=== PATIENT | female | born 1935 | race Caucasian/White ===

== ENCOUNTER → 2016-09-13 | Outpatient (CLI) | payer MEDICARE, BC ==
--- NOTE | 2016-09-13 20:31 | BD ---
EXAMINATION TYPE: MG DEXA axial skeleton. DATE OF EXAM: 09/13/2016 9:48 AM COMPARISON: NONE CLINICAL HISTORY: 81-year-old female known osteoporosis Height: 63 Weight: 137.0 FRAX RISK QUESTIONS: Alcohol (3 or more units per day): no Family History (Parent hip fracture): no Glucocorticoids (More than 3mos): steroid- stopped 3 days -taking for chest congestion (Ex: prednisone, prednisolone, methylprednisolone, dexamethasone, and hydrocortisone). History of Fracture in Adulthood: yes Secondary Osteoporosis: 1. Type 1 Diabetes: no 2. Hyperthyroidism: no 3. Menopause before 45: no 4. Malnutrition: no 5. Chronic liver disease: no Rheumatoid Arthritis: no Current Tobacco Use: no RISK FACTORS HISTORY OF: Hip Fracture (Right/Left): Spine Fracture: History of Wrist Fracture: bilateral wrist When: unsure Surgery to Spine/Hip(right/left)/Wrist (right/left): no Family History of Osteoporosis: no Active: yes Diet low in dairy products/other sources of calcium: no Postmenopausal woman: age 45 Lost more than 2 inches in height since high school: yes Frequent falls: no Poor Health: no Adrenal Insufficiency: no MEDICATIONS: Cymbalta, Singulair, Symbicort, simvastatin calcium , pro-air Prednisone or other steroids: takes for asthma when needed How Long: long time EXAM MEASUREMENTS: Bone mineral densitometry was performed using the [employer] System. Bone mineral density as measured about the Lumbar spine is: ----- L1-L4(G/cm2): 1.158 T Score Values are as follows: ----- L2: 0.0 ----- L3: 0.8 ----- L4: 1.0 ----- L1-L4: -0.2 Bone mineral density has: increased 17.3 % since study of: 12.17.2012 Bone mineral density about the R hip (g/cm2): 0.878 Bone mineral density about the L hip (g/cm2): 0.841 T Score values are as follows: -----R Neck: -1.2 -----L Neck: -1.4 -----R Intertrochanter: -0.2 -----L Intertrochanter: -0.2 Bone mineral density has: decreased -0.9 % since study of: 12.17.2012 IMPRESSION: Osteopenia (T Score between -2.5 and -1) as noted by T score values in the hips. There is slightly increased risk of fracture and the patient may be considered for treatment. Re-Screen 2-5 years. NOTE: T-SCORE=SD OF THE YOUNG ADULT MEAN.
== END | disposition home or self-care (01) ==
LOC: RADBDWWP 09:47
PROVIDERS: ATTEND Internal Medicine Rheumatology
DX: M85.88 Other specified disorders of bone density and structure, other site (principal)
CPT/HCPCS: 77080

== ENCOUNTER 2016-09-22 15:22 | Emergency (ER) | payer MEDICARE, BC ==
[2016-09-22 15:32] VITALS: RESP 16
--- NOTE | 2016-09-22 15:44 | ED ---
General Adult HPI - General Source: patient, EMS, RN notes reviewed Mode of arrival: EMS Limitations: no limitations <Marcos Head - Last Filed: 09/22/16 18:19> <Roberto Whittington - Last Filed: 09/22/16 21:13> - General Chief complaint: Fall Stated complaint: Fall Time Seen by Provider: 09/22/16 15:27 - History of Present Illness Initial comments: Patient 81 year old female who presents emergency room today by EMS, the chief complaint of fall occurred just prior to arrival. She does admit that she was out and went to step down from a curb was a higher step misjudged and fell down landing on her face. Also admits to some pain to the left wrist. Patient does admit to abrasion above the nose. Admits that she also had a bloody nose. Patient did have nasal clamp placed by EMS. She believes the bleeding has stopped at this time. She does admit some mild neck pain but states some of this is chronic. She denies any other complaints or symptoms at this time. Patient denies any recent fever, chills, shortness of breath, chest pain, back pain, abdominal pain, nausea or vomiting, numbness or tingling, dysuria or hematuria, constipation or diarrhea, headaches or visual changes, or any other complaints. (Marcos Head) - Related Data Home Medications Medication Instructions Recorded Confirmed Aspirin 81 mg PO DAILY 01/25/15 09/22/16 Budesonide-Formot 160-4.5 Mcg 2 puff INHALATION RT-BID 01/25/15 09/22/16 [Symbicort 160-4.5 Mcg Inhaler] Calcium Carbonate/Vitamin D3 1 tab PO TID 01/25/15 09/22/16 [Calcium 600 + Vit D Tablet] EPINEPHrine [Epipen 2-Igor] 0.3 mg IM ONCE PRN 01/25/15 09/22/16 Montelukast [Singulair] 10 mg PO HS 01/25/15 09/22/16 Multivit-Min/FA/Lycopene/Lut 1 tab PO BID 01/25/15 09/22/16 [Centrum Silver Tablet] Omeprazole [PriLOSEC] 10 mg PO AC-BRKFST 01/25/15 09/22/16 Simvastatin [Zocor] 20 mg PO HS 01/25/15 09/22/16 Tiotropium 18 Mcg/Puff [Spiriva] 1 cap INHALATION RT-DAILY 11/01/15 09/22/16 Acetaminophen Tab [Tylenol Tab] 650 mg PO BID 09/22/16 09/22/16 Albuterol Sulfate [Proair Hfa] 1 - 2 puff INHALATION RT-Q6H PRN 09/22/16 Fexofenadine HCl [Cherelle Allergy] 45 mg PO DAILY 09/22/16 09/22/16 Ipratropium [place] [Ipratropium 1 sprays EA NOSTRIL DAILY PRN 09/22/16 09/22/16 [place] 0.03%] Nitroglycerin Sl Tabs [Nitrostat] 0.4 mg SUBLINGUAL Q5M PRN 09/22/16 09/22/16 Allergies Allergy/AdvReac Type Severity Reaction Status Date / Time codeine Allergy Unknown Nausea & Verified 09/22/16 16:20 Vomiting Penicillins Allergy Unknown Rash/Hives, Verified 09/22/16 16:20 Throat Swelling venom-honey bee Allergy Unknown Anaphylaxis Verified 09/22/16 16:20 [bee venom (honey bee)] Sulfa (Sulfonamide AdvReac Unknown Nausea Verified 09/22/16 16:20 Antibiotics) Review of Systems ROS Other: All systems not noted in ROS Statement are negative. <Marcos Head - Last Filed: 09/22/16 18:19> ROS Other: All systems not noted in ROS Statement are negative. <Roberto Whittington - Last Filed: 09/22/16 21:13> ROS Statement: Those systems with pertinent positive or pertinent negative responses have been documented in the HPI. Past Medical History Past Medical History: Cancer, COPD, Osteoarthritis (OA), Pneumonia Additional Past Medical History / Comment(s): HX OF SKIN CANCER, BRONCHITIS, STATES PNEUMONIA IN NOVEMBER 2015, FEELS LIKE SOMETHING IN HER THROAT-STATES HX OF EGD WITH DILATION. History of Any Multi-Drug Resistant Organisms: None Reported Past Surgical History: Hysterectomy, Tonsillectomy Additional Past Surgical History / Comment(s): rotator cuff rt, lt ankle with quan, breast cyst removed, BREAST BIOPSY, EGD WITH DILATION. Past Anesthesia/Blood Transfusion Reactions: No Reported Reaction Past Psychological History: No Psychological Hx Reported Smoking Status: Never smoker Past Alcohol Use History: None Reported Past Drug Use History: None Reported - Past Family History Mother Family Medical History: No Reported History Additional Family Medical History / Comment(s): STATES UNKNOWN FAMILY HX. <SonidoMarcos - Last Filed: 09/22/16 18:19> General Exam Limitations: no limitations <Shelbi Headony - Last Filed: 09/22/16 18:19> <Roberto Whittington - Last Filed: 09/22/16 21:13> - General Exam Comments Initial Comments: General: The patient is awake and alert, in no distress, and does not appear acutely ill. Cervical collar in place nose clamp over the nasal nares. Eye: Pupils are equal, round and reactive to light, extra-ocular movements are intact. No nystagmus. There is normal conjunctiva bilaterally. No signs of icterus. Ears, nose, mouth and throat: There are moist mucous membranes and no oral lesions. Tender to palpation over the nasal bridge. Does have some superficial abrasions over the top the nasal bridge into the left side. Neck: The neck is supple. Mild tenderness cervical spine C3-C4. Cardiovascular: There is a regular rate and rhythm. No murmur, rub or gallop is appreciated. Respiratory: Lungs are clear to auscultation, respirations are non-labored, breath sounds are equal. No wheezes, stridor, rales, or rhonchi. Musculoskeletal: Has normal appearance of left wrist no obvious deformity. She does admit some tenderness with certain movements of flexion and extension at the left wrist. No specific bony tenderness. No tenderness to left shoulder , left elbow or down into the digits. Cap refill less than 2 seconds. Strength 5/5. Sensation intact. Pulses equal bilaterally 2+. Neurological: A&O x 3. CN II-XII intact, There are no obvious motor or sensory deficits. Coordination appears grossly intact. Speech is normal. Skin: Skin is warm and dry and no rashes or lesions are noted. Psychiatric: Cooperative, appropriate mood & affect, normal judgment. (Marcos Head) Course <HeadMarcos - Last Filed: 09/22/16 18:19> <Roberto Whittington - Last Filed: 09/22/16 21:13> Vital Signs 09/22/16 09/22/16 09/22/16 15:28 17:28 18:42 Temperature 98.7 F 98.7 F 97.8 F Pulse Rate 71 85 80 Respiratory 16 16 16 Rate Blood Pressure 130/69 153/70 154/70 O2 Sat by Pulse 94 L 95 99 Oximetry - Reevaluation(s) Reevaluation #1: 09/22/16 21:06 I did personally do a [id number] evaluation of this patient she presented after sustaining a fall with facial injuries. This is a well-developed well- nourished awake alert oriented 3 female she did present by EMS. She is awake alert oriented as stated she had Hui Coma Scale of 15. She denied any loss of function to her upper or lower extremities. She did have a cervical collar on. She complains some very minimal neck discomfort. HEENT exam normocephalic with multiple abrasions and contusions over the nasal tenderness over the nose. Dried blood is noted with no active bleeding is nares were congested with some bloody discharge. The auditory canals are negative for any acute findings. Oropharynx is clear neck cervical collar was replaced no tenderness palpation. Chest lungs are clear chest is nontender to palpation at the soft nontender pelvis was negative palpation for pain tenderness or step-off or crepitation. Extremities were bilaterally present and symmetric there is tenderness palpation over left wrist especially over the ulnar aspect. No definite deformity seen however. Cranial nerves II through XII are grossly intact psychiatric exam was normal. Skin exam as noted above abrasions over the nasion. The CAT scan did show evidence of a C1 fracture. There is evidence of a suspected fracture midcarpal region ulnar aspect the left wrist. Patient did require higher-level care was transferred to [facility]. I do agree with this assessment and plan. The patient patient did not trigger trauma one or 2 activation. (Roberto Whittington) Medical Decision Making - Lab Data Result diagrams: 09/22/16 17:45 <Marcos Head - Last Filed: 09/22/16 18:19> - Lab Data Result diagrams: 09/22/16 17:45 09/22/16 17:45 <Roberto Whittington - Last Filed: 09/22/16 21:13> - Medical Decision Making Patient's x-ray of the left wrist does show fracture has been splinted in a short arm volar OCL. Neurovascular rechecked and intact. Patient's CT of the brain and cervical spine shows fracture of the anterior and right anterior portions C1. Foraminal stenosis greater than the upper cervical spine due to an convertible joint hypertrophy and some facet hypertrophy. Shows multilevel degenerative changes. No mass or midline shift seen in CT of brain. Patient's CAT scan of the facial bones shows 1. LeFort type II fracture. Bilateral pterygoid plate fractures, maxillary bone, and maxillary sinus factors are present. 2. Fracture of the left zygoma at the inferior or before. The zygomatic arches are intact. 3. Fracture within the health information administrator spaces from fractures of the maxillary sinuses. Cardiovascular nasal bone with adjacent subcu tenderness emphysema. His results were discussed with the patient and family members at bedside. Patient has no active nasal bleeding at this time. Posterior pharynx clear. No neuro deficits. Case was discussed with Ashwin Payton doctor Dorothea will accept transfer. Patient will be transferred via EMS. (Marcos Head) - Lab Data Lab Results 09/22/16 09/22/16 09/22/16 Range/Units 17:45 17:45 17:45 WBC 11.9 H (3.8-10.6) k/uL RBC 4.27 (3.80-5.40) m/uL Hgb 12.8 (11.4-16.0) gm/dL Hct 39.9 (34.0-46.0) % MCV 93.6 (80.0-100.0) fL MCH 30.1 (25.0-35.0) pg MCHC 32.2 (31.0-37.0) g/dL RDW 13.9 (11.5-15.5) % Plt Count 198 (150-450) k/uL Neutrophils % 89 % Lymphocytes % 7 % Monocytes % 3 % Eosinophils % 0 % Basophils % 0 % Neutrophils # 10.5 H (1.3-7.7) k/uL Lymphocytes # 0.8 L (1.0-4.8) k/uL Monocytes # 0.4 (0-1.0) k/uL Eosinophils # 0.0 (0-0.7) k/uL Basophils # 0.0 (0-0.2) k/uL PT 10.5 (9.0-12.0) sec INR 1.0 (<1.1) APTT 20.3 L (22.0-30.0) sec Sodium 141 (137-145) mmol/L Potassium 4.2 (3.5-5.1) mmol/L Chloride 105 (98-107) mmol/L Carbon Dioxide 27 (22-30) mmol/L Anion Gap 9 mmol/L BUN 34 H (7-17) mg/dL Creatinine 1.10 H (0.52-1.04) mg/dL Est GFR (MDRD) Af Amer 58 (>60 ml/min/1.73 sqM) Est GFR (MDRD) Non-Af 48 (>60 ml/min/1.73 sqM) Glucose 143 H (74-99) mg/dL Calcium 9.5 (8.4-10.2) mg/dL Total Bilirubin 0.4 (0.2-1.3) mg/dL AST 28 (14-36) U/L ALT 33 (9-52) U/L Alkaline Phosphatase 57 (38-126) U/L Total Protein 6.9 (6.3-8.2) g/dL Albumin 4.1 (3.5-5.0) g/dL Disposition Time of Disposition: 18:13 (Transferred via EMS to [facility]) - Out of Hospital Transfer - Req. Specs Out of Hospital Transfer - Requested Specifics: Other Emergency Center ( [facility]) <Marcos Head - Last Filed: 09/22/16 18:19> - Out of Hospital Transfer - Req. Specs Out of Hospital Transfer - Requested Specifics: Other Emergency Center <Roberto Whittington - Last Filed: 09/22/16 21:13> Clinical Impression: C1 cervical fracture, Nasal fracture, LeFort II fracture Disposition: OTHER INSTITUTION NOT DEFINED Condition: Stable Referrals: Antony Wolfe DO [Primary Care Provider] - 1-2 days
[2016-09-22] MEDS ORDERED: LIDOCAINE/EPINEPHR/TETRACAINE 5 ML BOTTLE TOPICAL ONE (17:07)
--- NOTE | 2016-09-22 17:12 | CT ---
EXAMINATION TYPE: CT facial bones wo con DATE OF EXAM: 09/22/2016 4:41 PM COMPARISON: NONE HISTORY: facial and frontal injury from fall today. CT DLP: 1926 mGycm Automated exposure control for dose reduction was used. TECHNIQUE: CT scan of the sinuses is performed without contrast, axial images are obtained, coronal r eformatted images are also reviewed. FINDINGS: Degenerative changes are noted in the upper cervical spine. Mandible and maxilla appear int act. Comminuted fracture of the nasal bones is present. The frontal bone is intact. Zygomatic arches are i ntact. There is a fracture of the anterior right maxillary wall. Posterior lateral right maxillary wall frac ture is present. Right pterygoid plate is fractured. There appears to be a buckle of the left pterygo id plate. Fractures of the pterygoid plate is not as clearly identified. However, Le Fort fracture 2 should be suspected. There is a fracture at the left orbital rim extending laterally. A tripod fracture is not identified. A blowout fracture into the maxillary sinus is not identified on the left. Posterior lateral left ma xillary wall fracture is noted which appears nondisplaced. Subcutaneous air is adjacent to the inferior lateral left orbit and posterior to the greater wing of the sphenoid lateral to the right orbital wall and right maxillary posterior lateral wall. Mandible appears intact. The anterior fractures at the maxilla with the junction of the maxillary sin us chinchilla. There is opacification of the maxillary sinuses and anterior and mid ethmoid air cells. Flu id may be within the nasal passage. Report was called to the emergency room PA by Dr. Mendoza by telephone at the time of interpretation. IMPRESSION: 1. Clinical correlation recommended for a LeFort type II fracture. Bilateral pterygoid plate fracture s, maxillary bone, and maxillary sinus fractures present 2. Fracture of the left zygoma at the inferior orbital floor. Zygomatic arches intact. 3. Subcutaneous air within the end matcher spaces from fractures of the maxillary sinuses as discussed above. 4. Comminuted fracture nasal bones with adjacent subcutaneous emphysema.
--- NOTE | 2016-09-22 17:14 | XR ---
EXAMINATION TYPE: XR wrist complete LT DATE OF EXAM: 09/22/2016 4:36 PM COMPARISON: NONE HISTORY: Fall, pain TECHNIQUE: 4 view left wrist FINDINGS: There is advanced osteoarthritic degenerative change first carpal metacarpal junction. Soft tissues appear normal. There appears to be a fracture region is performed correlate with location of patient's pain. IMPRESSION: 1. Suspected fracture fusiform in the mid carpal region ulnar aspect left wrist. 2. Advanced osteoarthritic degenerative change first carpal metacarpal region.
--- NOTE | 2016-09-22 17:22 | CT ---
EXAMINATION TYPE: CT brain olivier wo con DATE OF EXAM: 09/22/2016 4:41 PM COMPARISON: NONE HISTORY: facial and frontal injury from fall today. CT DLP: 1926 mGycm, Automated exposure control for dose reduction was used. CONTRAST: Patient injected with 0 mL of Omnipaque 300. CT of the brain is performed utilizing 3 mm thick sections through the posterior fossa and 3 mm thick sections through the remaining calvarium. Study is performed within 24 hours of arrival to the hospital. No abnormal hyperdensity is present to suggest an acute intracranial hemorrhage. No mass lesion is evident. No acute infarcts are evident. There is periventricular white matter hypodensity, likely on the basi s of chronic confluent white matter ischemic type changes. Ventricles and sulci are prominent for the patient age. Multiple fractures through the facial bones. Please see facial bone CT report of same date. An acute fracture of the skull is not identified. Mastoid air cells appear clear. IMPRESSIONS: 1. Atrophy with periventricular white matter ischemic type changes. CT cervical spine. COMPARISON: None CT of the cervical spine is performed in the axial plane at 2 mm thick sections. Reconstructed image s in the coronal, and sagittal plane are reviewed on the computer. The C1 vertebral body has a fracture anterior to the dens. An additional fractures in the right anter ior portion of C1 at the level of the dens. Remainder of the C1 ring appears intact. No spinal canal stenosis is present. The dens appears intact. Degenerative changes are noted. Alignment is normal. There is loss of disc height at C3-4 C4-5 posteriorly C5-6 through the C6-7 leve l. Minimal endplate spurring posteriorly is noted. Vertebral body heights are preserved. There is severe left foraminal stenosis due to uncovertebral joint hypertrophy and facet hypertrophy at C3-4. Moderate to severe bilateral foraminal stenosis from uncovertebral joint hypertrophy is pres ent C4-5. Uncovertebral joint hypertrophy is moderate left and severe right foraminal stenosis C5-6. Mild uncovertebral joint hypertrophy at C6-7 has mild foraminal narrowing greater on the left. Vertebral body alignment is normal. No spinal canal stenosis is present IMPRESSIONS: 1. Fracture of anterior and right anterior portions of C1. Report was called to the emergency room PA by Dr. Mendoza by telephone at the time of preliminary interpretation. 2. Foraminal stenosis greater in the upper cervical spine due to uncovertebral joint hypertrophy and some facet hypertrophy. No AP spinal canal stenosis is present. 3. Multilevel degenerative disc changes
[2016-09-22] MEDS ORDERED: MORPHINE SULFATE 4 MG/ML SYRINGE IV STA (17:39)
[2016-09-22] MEDS ORDERED: SODIUM CHLORIDE 0.9% 1,000 ML IV STA (17:39)
[2016-09-22 18:00] LABS: Basophils % (A) 0 %; CH 31.2; CHCM 33.5; Eosinophils % (A) 0 %; HCT 39.9 % (34.0-46.0); HDW 2.42; HGB 12.8 gm/dL (11.4-16.0); Luc % (Auto) 1; Lymphocytes # (A) 0.8 k/uL (1.0-4.8); Lymphocytes % (A) 7 %; MCH 30.1 pg (25.0-35.0); MCHC 32.2 g/dL (31.0-37.0); MCV 93.6 fL (80.0-100.0); Mean Platelet Volume 6.6; Monocytes # (A) 0.4 k/uL (0-1.0); Monocytes % (A) 3 %; Neutrophils # (A) 10.5 k/uL (1.3-7.7); Neutrophils % (A) 89 %; RBC 4.27 m/uL (3.80-5.40); RDW 13.9 % (11.5-15.5); WBC 11.9 k/uL (3.8-10.6); WBC (Perox) 12.59
[2016-09-22 18:09] LABS: Prothrombin Time 10.5 sec (9.0-12.0)
[2016-09-22 18:12] LABS: Calcium 9.5 mg/dL (8.4-10.2); Potassium 4.2 mmol/L (3.5-5.1); Total Bilirubin 0.4 mg/dL (0.2-1.3); Total Protein 6.9 g/dL (6.3-8.2)
[2016-09-22 18:50] VITALS: BP 154/70; PULSE 80; TEMP 97.8
[2016-09-22 18:58] LABS: Partial Thromboplastin Time 20.3 sec (22.0-30.0)
== END 2016-09-22 18:42 | disposition short-term general hospital (02) ==
LOC: EC 15:22
DX: S02.412A LeFort II fracture, initial encounter for closed fracture (principal); S12.090A Other displaced fracture of first cervical vertebra, initial encounter for closed fracture; S62.102A Fracture of unspecified carpal bone, left wrist, initial encounter for closed fracture; S02.19XA Other fracture of base of skull, initial encounter for closed fracture; S02.40EA Zygomatic fracture, right side, initial encounter for closed fracture; S02.2XXA Fracture of nasal bones, initial encounter for closed fracture; T79.7XXA Traumatic subcutaneous emphysema, initial encounter; M99.71 Connective tissue and disc stenosis of intervertebral foramina of cervical region; M47.812 Spondylosis without myelopathy or radiculopathy, cervical region; M19.90 Unspecified osteoarthritis, unspecified site; J44.9 Chronic obstructive pulmonary disease, unspecified; Z79.51 Long term (current) use of inhaled steroids; Z79.82 Long term (current) use of aspirin; Z79.899 Other long term (current) drug therapy; Z88.0 Allergy status to penicillin; Z88.2 Allergy status to sulfonamides; Z88.5 Allergy status to narcotic agent; Z91.030 Bee allergy status; Z87.01 Personal history of pneumonia (recurrent); W10.1XXA Fall (on)(from) sidewalk curb, initial encounter; Y92.89 Other specified places as the place of occurrence of the external cause
CPT/HCPCS: 99285; 29125; 96374; 96361; 36415; 80053; 85025; 85610; 85730; 73110; 72125; 70486; 70450; J2270

== ENCOUNTER 2016-11-21 11:05 | Emergency (ER) | payer MEDICARE, BC ==
--- NOTE | 2016-11-21 11:42 | ED ---
General Adult HPI - General Chief complaint: Abdominal Pain Stated complaint: constipated Time Seen by Provider: 11/21/16 11:31 Source: patient Mode of arrival: ambulatory Limitations: no limitations - History of Present Illness Initial comments: 81-year-old female presents to the emergency department with a chief complaint of constipation. Patient states she had not had a good bowel movement in the past 2-3 days. Patient states she will have liquid that she feels as if there something stopping her from having a large bowel movement. Patient denies any fever chills cough cold runny nose with this. She states she took a stool softener home with no improvement. Patient states she was concerned due to her continued inability to have a bowel movement so she thought that she should be evaluated.Patient denies any recent fever, chills, shortness of breath, chest pain, back pain, abdominal pain, nausea vomiting, numbness or tingling, dysuria or hematuria, headaches or visual changes, or any other current symptoms. - Related Data Home Medications Medication Instructions Recorded Confirmed Aspirin 81 mg PO DAILY 01/25/15 11/21/16 Budesonide-Formot 160-4.5 Mcg 2 puff INHALATION RT-BID 01/25/15 11/21/16 [Symbicort 160-4.5 Mcg Inhaler] Calcium Carbonate/Vitamin D3 1 tab PO TID 01/25/15 11/21/16 [Calcium 600 + Vit D Tablet] EPINEPHrine [Epipen 2-Igor] 0.3 mg IM ONCE PRN 01/25/15 11/21/16 Montelukast [Singulair] 10 mg PO HS 01/25/15 11/21/16 Multivit-Min/FA/Lycopene/Lut 1 tab PO BID 01/25/15 11/21/16 [Centrum Silver Tablet] Omeprazole [PriLOSEC] 10 mg PO AC-BRKFST 01/25/15 11/21/16 Simvastatin [Zocor] 20 mg PO HS 01/25/15 11/21/16 Tiotropium 18 Mcg/Puff [Spiriva] 1 cap INHALATION RT-DAILY 11/01/15 11/21/16 Acetaminophen Tab [Tylenol Tab] 650 mg PO BID 09/22/16 11/21/16 Albuterol Sulfate [Proair Hfa] 1 - 2 puff INHALATION RT-Q6H PRN 09/22/16 Fexofenadine HCl [Cherelle Allergy] 45 mg PO DAILY 09/22/16 11/21/16 Ipratropium [place] [Ipratropium 1 sprays EA NOSTRIL DAILY PRN 09/22/16 11/21/16 [place] 0.03%] Nitroglycerin Sl Tabs [Nitrostat] 0.4 mg SUBLINGUAL Q5M PRN 09/22/16 11/21/16 Allergies Allergy/AdvReac Type Severity Reaction Status Date / Time codeine Allergy Unknown Nausea & Verified 11/21/16 11:59 Vomiting Penicillins Allergy Unknown Rash/Hives, Verified 11/21/16 11:59 Throat Swelling venom-honey bee Allergy Unknown Anaphylaxis Verified 11/21/16 11:59 [bee venom (honey bee)] Sulfa (Sulfonamide AdvReac Unknown Nausea Verified 11/21/16 11:59 Antibiotics) Review of Systems ROS Statement: Those systems with pertinent positive or pertinent negative responses have been documented in the HPI. ROS Other: All systems not noted in ROS Statement are negative. Past Medical History Past Medical History: Cancer, COPD, Osteoarthritis (OA), Pneumonia Additional Past Medical History / Comment(s): HX OF SKIN CANCER, BRONCHITIS, STATES PNEUMONIA IN NOVEMBER 2015, FEELS LIKE SOMETHING IN HER THROAT-STATES HX OF EGD WITH DILATION. History of Any Multi-Drug Resistant Organisms: None Reported Past Surgical History: Hysterectomy, Tonsillectomy Additional Past Surgical History / Comment(s): rotator cuff rt, lt ankle with quan, breast cyst removed, BREAST BIOPSY, EGD WITH DILATION. Past Anesthesia/Blood Transfusion Reactions: No Reported Reaction Past Psychological History: No Psychological Hx Reported Smoking Status: Never smoker Past Alcohol Use History: None Reported Past Drug Use History: None Reported - Past Family History Mother Family Medical History: No Reported History Additional Family Medical History / Comment(s): STATES UNKNOWN FAMILY HX. General Exam - General Exam Comments Initial Comments: General: The patient is awake and alert, in no distress, and does not appear acutely ill. Eye: Pupils are equal, round and reactive to light, extra-ocular movements are intact; there is normal conjunctiva bilaterally. No signs of icterus. Ears, nose, mouth and throat: There are moist mucous membranes and no oral lesions. Neck: The neck is supple, there is no tenderness. Cardiovascular: There is a regular rate and rhythm. No murmur, rub or gallop is appreciated. Respiratory: Lungs are clear to auscultation, respirations are non-labored, breath sounds are equal. No wheezes, stridor, rales, or rhonchi. Gastrointestinal: Soft, non-distended, non-tender abdomen without masses or organomegaly noted. There is no rebound or guarding present. No CVA tenderness. Bowel sounds are unremarkable. Back: There is no tenderness to palpation in the midline. There is no obvious deformity. No rashes noted. Musculoskeletal: Normal ROM, no tenderness, There is no pedal edema. There is no calf tenderness or swelling. Sensation intact. Pulses equal bilaterally 2+. Neurological: CN II-XII intact, There are no obvious motor or sensory deficits. Coordination appears grossly intact. Speech is normal. Skin: Skin is warm and dry and no rashes or lesions are noted. Psychiatric: Cooperative, appropriate mood & affect, normal judgment. Limitations: no limitations Course Vital Signs 11/21/16 11:25 Temperature 98.1 F Pulse Rate 71 Respiratory 20 Rate Blood Pressure 131/67 O2 Sat by Pulse 98 Oximetry Medical Decision Making - Medical Decision Making 81-year-old female presents emergency Department chief complaint of constipation. At this time patient did have an enema did have a successful bowel movement states she is feeling much better. This and we will discharge the patient home. We did discuss follow-up return parameters all questions. Patient is agreement with plan. This time she will be discharged home. - Radiology Data Radiology results: report reviewed, image reviewed Disposition Clinical Impression: Constipation Disposition: HOME SELF-CARE Condition: Stable Instructions: Constipation (ED) Additional Instructions: Please use medication as discussed. Please follow up with family doctor if symptoms have not improved over the next two days. Please return to the emergency room if your symptoms increase or worsen or for any other concerns. Referrals: Antony Wolfe DO [Primary Care Provider] - 1-2 days Time of Disposition: 13:49
--- NOTE | 2016-11-21 11:56 | XR ---
EXAMINATION TYPE: XR abdomen 2V DATE OF EXAM: 11/21/2016 COMPARISON: NONE HISTORY: Abdominal pain TECHNIQUE: Three view abdominal series FINDINGS: The osseous structures are intact. The bowel gas pattern is nonspecific. Left perihilar subsegmental consolidation with small effusion. Degenerative and hypertrophic change of the spine. There are scattered air-fluid levels. Air is seen within the rectum. Arthropathy of the hips with calcifications in the pelvis likely vascular. IMPRESSION: 1. Nonspecific abdomen. Occasional air-fluid level seen. 2. Left basilar subsegmental atelectasis or infiltrate with tiny effusion.
[2016-11-21 14:00] VITALS: BP 147/70; PULSE 83; RESP 16; TEMP 97.6
== END 2016-11-21 14:00 | disposition home or self-care (01) ==
LOC: EC 11:05
DX: K59.00 Constipation, unspecified (principal); J44.9 Chronic obstructive pulmonary disease, unspecified; Z88.0 Allergy status to penicillin; Z88.2 Allergy status to sulfonamides; Z88.5 Allergy status to narcotic agent; Z91.030 Bee allergy status; Z79.51 Long term (current) use of inhaled steroids; Z79.82 Long term (current) use of aspirin; Z79.899 Other long term (current) drug therapy
CPT/HCPCS: 74020; 99284

== ENCOUNTER → 2016-12-05 | Outpatient (CLI) | payer MEDICARE, BC ==
[~2016-12-05] MED LIST: DENOSUMAB 60 MG/ML 1 ML SYRINGE SQ ONE
[2016-12-05 10:02] VITALS: BP 120/65; PULSE 78; RESP 16; TEMP 97.8
== END | disposition home or self-care (01) ==
LOC: PROCWHC3 09:38
PROVIDERS: ATTEND Family Medicine
DX: M81.0 Age-related osteoporosis without current pathological fracture (principal)
CPT/HCPCS: 96372; J0897

== ENCOUNTER → 2017-01-02 | Outpatient (CLI) | payer MEDICARE, BC ==
--- NOTE | 2017-01-02 09:22 | CT ---
EXAMINATION TYPE: CT cervical spine wo con DATE OF EXAM: 01/02/2017 COMPARISON: 517 HISTORY: C1 Nondisplaced fracture CT DLP: 272.[address] of the cervical spine was performed with bone and soft tissue window settings submitted . Coronal and sagittal reconstruction is obtained. There is partial union of the midline anterior C1 fracture with partial callus formation seen in port ions of the fracture remaining visible. The fracture of the right anterior arch demonstrates complete union. There is also a fracture involving the left posterior neural arch which was not seen previous ly likely given a degree of patient rotation. There is no evidence for callus formation at this fract ure site. There is no evidence for widening of the atlantoaxial space anteriorly or laterally. No additional fractures are seen at this time. Degenerative disc space narrowing at C2-3, C3-4, C4-5, C5-6 and C6-7 greatest at C4-5. Hard disc at C 4-5 with effacement of the ventral thecal sac and borderline central stenosis. Degenerative change of the cervical apophyseal joints with varying degrees of foraminal encroachment. IMPRESSION: 1. C1 fractures as discussed above. 2. Degenerative disc disease and spondylosis.
== END | disposition home or self-care (01) ==
LOC: RADCTMAIN 08:38
PROVIDERS: ATTEND Specialist
DX: S12.001D Unspecified nondisplaced fracture of first cervical vertebra, subsequent encounter for fracture with routine healing (principal); M50.30 Other cervical disc degeneration, unspecified cervical region; M47.812 Spondylosis without myelopathy or radiculopathy, cervical region
CPT/HCPCS: 72125

== ENCOUNTER → 2017-02-28 | Outpatient (CLI) | payer MEDICARE, BC ==
--- NOTE | 2017-02-28 13:37 | MM ---
Reason for exam: additional evaluation requested from prior study. Last mammogram was performed 1 year and 2 months ago. History: Patient is postmenopausal, has history of high-risk lesion on a previous biopsy at age 80, and history of other cancer. High risk US breast localization LT, January 03, 2016. Benign US biopsy breast VAD LT of the left breast, December 12, 2015. Benign right mammotome panel of the right breast, September 30, 2006. Benign excisional biopsy of the left breast, 1969. Benign excisional biopsy of the right breast, 1969. Physical Findings: Nurse did not find any significant physical abnormalities on exam. MG 3D Diag Mammo W/Cad BALDEMAR Bilateral CC and MLO view(s) were taken. Prior study comparison: January 03, 2016, left breast MG diagnostic mammo LT wo CAD. December 12, 2015, left breast MG diagnostic mammo LT wo CAD. The breast tissue is heterogeneously dense. This may lower the sensitivity of mammography. Stable benign calcifications. There is chronic nodularity bilaterally. There is no dominant lesion. No significant new findings when compared with previous films. These results were verbally communicated with the patient and result sheet given to the patient on 02/28/17. ASSESSMENT: Benign, BI-RAD 2 RECOMMENDATION: Follow-up diagnostic mammogram of both breasts in 1 year.
== END | disposition home or self-care (01) ==
LOC: RADMAMWWP 12:50
PROVIDERS: ATTEND Family Medicine
DX: N64.9 Disorder of breast, unspecified (principal)
CPT/HCPCS: G0204; G0279

== ENCOUNTER 2017-05-29 08:24 | Day surgery (SDC) | payer MEDICARE, BC ==
[2017-05-27 13:39] VITALS: BMI 19.8
[~2017-05-29 08:24] MED LIST changes: -DENOSUMAB 60 MG/ML 1 ML SYRINGE SQ ONE; +LACTATED RINGERS 1,000 ML IV SCH
[2017-05-29 08:56] VITALS: RESP 18; TEMP 98.1
[2017-05-29] MEDS ORDERED: LIDOCAINE 1% 20 ML VIAL (10MG/ML) FOR IV START INTRADERMA ONE (08:57)
[2017-05-29] MEDS ORDERED: LACTATED RINGERS 1,000 ML IV ONE (08:57)
[2017-05-29] MEDS ORDERED: GLYCOPYRROLATE 0.2 MG/ML 2 ML VIAL ONE (09:33)
[2017-05-29] MEDS ORDERED: fentaNYL (PF) 50 MCG/ML 2 ML AMP ONE (09:33)
[2017-05-29] MEDS ORDERED: PROPOFOL 10 MG/ML 20 ML VIAL IV ONE (09:33)
--- NOTE | 2017-05-29 09:45 | P.PCN ---
Date of Procedure: 05/29/17 Procedure(s) Performed: BRIEF HISTORY: Patient is a 81-year-old, pleasant, white female, scheduled for an upper endoscopy with possible dilation as a part of evaluation of intermittent dysphagia to solids for the last several months duration.. PROCEDURE PERFORMED: Esophagogastroduodenoscopy with biopsy and dilation. PREOPERATIVE DIAGNOSIS: Progressive dysphagia to solids. IV sedation per anesthesia. PROCEDURE: After informed consent was obtained, the patient was brought into the endoscopy unit. IV sedation was administered by Anesthesia under continuous monitoring. Initially the Olympus GIF-140 video endoscope was inserted into the mouth. Esophagus intubated without any difficulty. It was gradually advanced into the stomach and duodenum and carefully examined. The bulb and the second part of the duodenum appeared normal. The scope at this time was withdrawn to the stomach, adequately insufflated with air, and upon careful examination, mucosa of the antrum, body, cardia and the fundus appeared normal. The scope was then withdrawn into the esophagus. The GE junction was located at 39 cm from the incisors. Small hiatal hernia noted. There was a distal esophageal whitish patent Schatzki's ring identified that was dilated using 15-18 mm TTS balloon as sequential fashion for 60 seconds. There was some small amount of mucosal oozing at the site of dilation noted. The rest of the esophagus appeared normal. There were no erosions or ulcerations seen, biopsies were done from the distal esophagus and the patient tolerated the procedure well. IMPRESSION: 1. Distal esophageal Schatzki's ring status post balloon dilation using 15-18 mm TTS balloon as described above. 2. Small hiatal hernia. RECOMMENDATIONS: The findings of this examination were discussed with the patient as well as her family. She was advised to be on clear liquid diet today and advance as tolerated tomorrow..
[2017-05-29 10:13] VITALS: BP 143/84; PULSE 74
== END 2017-05-29 10:43 | disposition home or self-care (01) ==
LOC: ORWHC2ENDO 08:24
PROVIDERS: ATTEND Internal Medicine Gastroenterology
DX: K22.2 Esophageal obstruction (principal); K20.9 Esophagitis, unspecified; K44.9 Diaphragmatic hernia without obstruction or gangrene; E78.5 Hyperlipidemia, unspecified; J44.9 Chronic obstructive pulmonary disease, unspecified; F32.9 Major depressive disorder, single episode, unspecified; Z79.82 Long term (current) use of aspirin; Z79.51 Long term (current) use of inhaled steroids; Z79.899 Other long term (current) drug therapy; Z88.5 Allergy status to narcotic agent; Z88.0 Allergy status to penicillin; Z88.2 Allergy status to sulfonamides
CPT/HCPCS: 88305; 43239; 43249; J3010; J2704; C1726

== ENCOUNTER → 2017-06-27 | Outpatient (CLI) | payer MEDICARE, BC ==
[~2017-06-27] MED LIST changes: +DENOSUMAB 60 MG/ML 1 ML SYRINGE SQ ONE; -LACTATED RINGERS 1,000 ML IV SCH
[2017-06-27 10:54] VITALS: BP 162/75; PULSE 64; RESP 18; TEMP 98.5
== END | disposition home or self-care (01) ==
LOC: PROCWHC3 10:45
PROVIDERS: ATTEND Family Medicine
DX: M81.0 Age-related osteoporosis without current pathological fracture (principal)
CPT/HCPCS: 96372; J0897

== ENCOUNTER 2017-09-05 14:02 | Inpatient (IN) | payer MEDICARE, BC ==
--- NOTE | 2017-09-05 14:18 | ED ---
General Adult HPI - General Chief complaint: Shortness of Breath Stated complaint: SOB Time Seen by Provider: 09/05/17 14:05 Source: patient, EMS, RN notes reviewed Mode of arrival: EMS Limitations: no limitations - History of Present Illness Initial comments: This is an 82-year-old female who presents emergency Department complaining of difficulty breathing a cough without production. Patient states she also feels extremely weak. Patient states she's been having a fever. Patient states the difficulty breathing got so bad today that she had cannabinoids. Patient states she took a breathing treatment on the way in and that helped considerably. Patient denies any chest pain or palpitations. Patient denies abdominal pain patient denies nausea vomiting or diarrhea. Patient denies headache patient denies numbness weakness. Patient denies lightheadedness dizziness or near syncopal episode. - Related Data Home Medications Medication Instructions Recorded Confirmed Aspirin 81 mg PO DAILY 01/25/15 09/05/17 Budesonide-Formot 160-4.5 Mcg 2 puff INHALATION RT-BID 01/25/15 09/05/17 [Symbicort 160-4.5 Mcg Inhaler] Calcium Carbonate/Vitamin D3 1 tab PO TID 01/25/15 09/05/17 [Calcium 600 + Vit D Tablet] EPINEPHrine [Epipen 2-Igor] 0.3 mg IM ONCE PRN 01/25/15 09/05/17 Montelukast [Singulair] 10 mg PO HS 01/25/15 09/05/17 Multivit-Min/FA/Lycopene/Lut 1 tab PO BID 01/25/15 09/05/17 [Centrum Silver Tablet] Simvastatin [Zocor] 20 mg PO HS 01/25/15 09/05/17 Tiotropium 18 Mcg/Puff [Spiriva] 1 cap INHALATION RT-DAILY 11/01/15 09/05/17 Citalopram Hydrobromide [CeleXA] 10 mg PO HS 05/27/17 09/05/17 Loratadine [Claritin] 10 mg PO DAILY 05/27/17 09/05/17 Propylene Glycol/Peg 400/Pf 1 dropper BOTH EYES DAILY PRN 05/27/17 09/05/17 [Systane 0.3-0.4% Eye Drops] Sodium Chloride 0.65% Nasal [Deep 2 spray NASAL BID 05/27/17 09/05/17 Sea (Saline)] Benzonatate [Tessalon Perles] 100 mg PO TID PRN 09/05/17 09/05/17 Doxycycline Monohydrate [Monodox] 100 mg PO Q12HR 09/05/17 09/05/17 Allergies Allergy/AdvReac Type Severity Reaction Status Date / Time codeine Allergy Unknown Nausea & Verified 09/05/17 14:57 Vomiting Penicillins Allergy Unknown Rash/Hives, Verified 09/05/17 14:57 Throat Swelling venom-honey bee Allergy Unknown Anaphylaxis Verified 09/05/17 14:57 [bee venom (honey bee)] Sulfa (Sulfonamide AdvReac Unknown Nausea Verified 09/05/17 14:57 Antibiotics) Review of Systems ROS Statement: Those systems with pertinent positive or pertinent negative responses have been documented in the HPI. ROS Other: All systems not noted in ROS Statement are negative. Past Medical History Past Medical History: Cancer, COPD, Osteoarthritis (OA), Pneumonia Additional Past Medical History / Comment(s): HX OF SKIN CANCER, BRONCHITIS, STATES PNEUMONIA IN NOVEMBER 2015, FEELS LIKE SOMETHING IN HER THROAT-STATES HX OF EGD WITH DILATION. History of Any Multi-Drug Resistant Organisms: None Reported Past Surgical History: Hysterectomy, Tonsillectomy Additional Past Surgical History / Comment(s): rotator cuff rt, lt ankle with quan, breast cyst removed, BREAST BIOPSY, EGD WITH DILATION. Past Anesthesia/Blood Transfusion Reactions: No Reported Reaction Additional Past Anesthesia/Blood Transfusion Reaction / Comment(s): PT DOES NOT KNOW FAMILY HX (FOSTER CHILD) Past Psychological History: No Psychological Hx Reported Smoking Status: Former smoker Past Alcohol Use History: None Reported Past Drug Use History: None Reported - Past Family History Mother Family Medical History: No Reported History Additional Family Medical History / Comment(s): STATES UNKNOWN FAMILY HX. General Exam - General Exam Comments Initial Comments: GENERAL: Patient is well-developed and well-nourished. Patient is nontoxic and well- hydrated and is in mild distress. ENT: Neck is soft and supple. No significant lymphadenopathy is noted. Oropharynx is clear. Moist mucous membranes. Neck has full range of motion without eliciting any pain. EYES: The sclera were anicteric and conjunctiva were pink and moist. Extraocular movements were intact and pupils were equal round and reactive to light. Eyelids were unremarkable. PULMONARY: Patient has crackles in the left base CARDIOVASCULAR: There is a regular rate and rhythm without any murmurs gallops or rubs. ABDOMEN: Soft and nontender with normal bowel sounds. No palpable organomegaly was noted. There is no palpable pulsatile mass. SKIN: Skin is clear with no lesions or rashes and otherwise unremarkable. NEUROLOGIC: Patient is alert and oriented x3. Cranial nerves II through XII are grossly intact. Motor and sensory are also intact. Normal speech, volume and content. Symmetrical smile. MUSCULOSKELETAL: Normal extremities with adequate strength and full range of motion. LYMPHATICS: No significant lymphadenopathy is noted PSYCHIATRIC: Normal psychiatric evaluation. Normal interpersonal interactions appears functionally intact in deals appropriately with others. No signs of depression. No signs of anxiety. Limitations: no limitations Course Vital Signs 09/05/17 14:03 Temperature 101.5 F H Pulse Rate 98 Respiratory 24 Rate Blood Pressure 157/85 O2 Sat by Pulse 87 L Oximetry Medical Decision Making - Medical Decision Making Patient's EKG shows a normal sinus rhythm at 94 bpm ND interval is 126 dresses 88 QT interval 332 QTC is 4:15. Patient's EKG shows T-wave inversions in leads V1 through V4. Chest x-ray did not show an obvious infiltrate. However clinically the patient had crackles in the left base in combination with the cough and a high fever I decided to treat the patient like she was a pneumonia. - Lab Data Result diagrams: 09/05/17 14:10 09/05/17 14:10 Lab Results 09/05/17 09/05/17 09/05/17 Range/Units 14:10 14:10 14:10 WBC 5.8 (3.8-10.6) k/uL RBC 4.19 (3.80-5.40) m/uL Hgb 12.3 (11.4-16.0) gm/dL Hct 37.4 (34.0-46.0) % MCV 89.3 (80.0-100.0) fL MCH 29.4 (25.0-35.0) pg MCHC 32.9 (31.0-37.0) g/dL RDW 13.1 (11.5-15.5) % Plt Count 108 L (150-450) k/uL Neutrophils % 80 % Lymphocytes % 12 % Monocytes % 5 % Eosinophils % 1 % Basophils % 0 % Neutrophils # 4.6 (1.3-7.7) k/uL Lymphocytes # 0.7 L (1.0-4.8) k/uL Monocytes # 0.3 (0-1.0) k/uL Eosinophils # 0.1 (0-0.7) k/uL Basophils # 0.0 (0-0.2) k/uL PT (9.0-12.0) sec INR (<1.2) APTT (22.0-30.0) sec Sodium 139 (137-145) mmol/L Potassium 4.6 (3.5-5.1) mmol/L Chloride 103 (98-107) mmol/L Carbon Dioxide 22 (22-30) mmol/L Anion Gap 14 mmol/L BUN 29 H (7-17) mg/dL Creatinine 1.04 (0.52-1.04) mg/dL Est GFR (CKD-EPI)AfAm 58 (>60 ml/min/1.73 sqM) Est GFR (CKD-EPI)NonAf 50 (>60 ml/min/1.73 sqM) Glucose 192 H (74-99) mg/dL Plasma Lactic Acid [place] (0.7-2.0) mmol/L Calcium 8.7 (8.4-10.2) mg/dL Total Bilirubin 0.3 (0.2-1.3) mg/dL AST 32 (14-36) U/L ALT 28 (9-52) U/L Alkaline Phosphatase 48 (38-126) U/L Total Protein 6.2 L (6.3-8.2) g/dL Albumin 3.8 (3.5-5.0) g/dL Influenza Type A RNA Not Detected (Not Detectd) Influenza Type B (PCR) Not Detected (Not Detectd) 09/05/17 09/05/17 Range/Units 14:10 14:10 WBC (3.8-10.6) k/uL RBC (3.80-5.40) m/uL Hgb (11.4-16.0) gm/dL Hct (34.0-46.0) % MCV (80.0-100.0) fL MCH (25.0-35.0) pg MCHC (31.0-37.0) g/dL RDW (11.5-15.5) % Plt Count (150-450) k/uL Neutrophils % % Lymphocytes % % Monocytes % % Eosinophils % % Basophils % % Neutrophils # (1.3-7.7) k/uL Lymphocytes # (1.0-4.8) k/uL Monocytes # (0-1.0) k/uL Eosinophils # (0-0.7) k/uL Basophils # (0-0.2) k/uL PT 10.1 (9.0-12.0) sec INR 1.0 (<1.2) APTT 22.6 (22.0-30.0) sec Sodium (137-145) mmol/L Potassium (3.5-5.1) mmol/L Chloride (98-107) mmol/L Carbon Dioxide (22-30) mmol/L Anion Gap mmol/L BUN (7-17) mg/dL Creatinine (0.52-1.04) mg/dL Est GFR (CKD-EPI)AfAm (>60 ml/min/1.73 sqM) Est GFR (CKD-EPI)NonAf (>60 ml/min/1.73 sqM) Glucose (74-99) mg/dL Plasma Lactic Acid Georg[place] 1.4 (0.7-2.0) mmol/L Calcium (8.4-10.2) mg/dL Total Bilirubin (0.2-1.3) mg/dL AST (14-36) U/L ALT (9-52) U/L Alkaline Phosphatase (38-126) U/L Total Protein (6.3-8.2) g/dL Albumin (3.5-5.0) g/dL Influenza Type A RNA (Not Detectd) Influenza Type B (PCR) (Not Detectd) Disposition Clinical Impression: Pneumonia Disposition: ADMITTED IP TO THIS HOSP Is patient prescribed a controlled substance at d/c from ED?: No Referrals: Ely Maza MD [Primary Care Provider] - 1-2 days Time of Disposition: 15:01
[2017-09-05 14:33] LABS: Basophils % (A) 0 %; Eosinophils # (A) 0.1 k/uL (0-0.7); Eosinophils % (A) 1 %; HCT 37.4 % (34.0-46.0); HGB 12.3 gm/dL (11.4-16.0); Lymphocytes # (A) 0.7 k/uL (1.0-4.8); Lymphocytes % (A) 12 %; MCH 29.4 pg (25.0-35.0); MCHC 32.9 g/dL (31.0-37.0); MCV 89.3 fL (80.0-100.0); Mean Platelet Volume 6.9; Monocytes # (A) 0.3 k/uL (0-1.0); Monocytes % (A) 5 %; Neutrophils # (A) 4.6 k/uL (1.3-7.7); Neutrophils % (A) 80 %; Platelet Count 108 k/uL (150-450); RBC 4.19 m/uL (3.80-5.40); RDW 13.1 % (11.5-15.5); WBC 5.8 k/uL (3.8-10.6)
[2017-09-05 14:38] LABS: Partial Thromboplastin Time 22.6 sec (22.0-30.0); Prothrombin Time 10.1 sec (9.0-12.0)
--- NOTE | 2017-09-05 14:38 | XR ---
EXAMINATION TYPE: XR chest 2V DATE OF EXAM: 09/05/2017 COMPARISON: Prior chest 04/20/2014 HISTORY: Fever and cough, shortness of breath TECHNIQUE: Frontal and lateral views of the chest are obtained. FINDINGS: Prominent lung volumes are suggestive of underlying COPD. Bronchial wall thickening is pre sent. No airspace disease, pneumothorax, or pleural effusion. There is bronchial wall thickening. Ove rlying cardiac leads are noted. Cardiac mediastinal silhouette, pulmonary vascularity and lonnie not si gnificantly changed, the aorta is dense. IMPRESSION: Correlate for bronchitis, reactive airways disease. Cardiomegaly.
[2017-09-05 14:41] LABS: Albumin 3.8 g/dL (3.5-5.0); Calcium 8.7 mg/dL (8.4-10.2); Potassium 4.6 mmol/L (3.5-5.1); Total Bilirubin 0.3 mg/dL (0.2-1.3); Total Protein 6.2 g/dL (6.3-8.2)
[2017-09-05] MEDS ORDERED: ONDANSETRON 4 MG/2 ML VIAL IVP STA (14:48)
[2017-09-05] MEDS ORDERED: cefTRIAXone 2,000 MG in SODIUM CHLORIDE 0.9% 100 ML IVPB STA (15:02)
[2017-09-05] MEDS ORDERED: cefTRIAXone IN SWFI 2,000 MG/20 ML SYRINGE IVP STA (15:03)
[2017-09-05] MEDS ORDERED: PNEUMONIA PROTOCOL UTILIZED 1 EACH MISC PO PRN (15:14)
[2017-09-05] MEDS ORDERED: AZITHROMYCIN 500 MG in SODIUM CHLORIDE 0.9% 250 ML IVPB STA (15:14)
[2017-09-05 15:28] LABS: Appearance,Urine Turbid (Clear); Bilirubin,Urine Negative (Negative); Blood,Urine Small (Negative); Color,Urine Yellow; Glucose,Urine (UA) Negative (Negative); Ketones,Urine 1+ (Negative); Leukocyte Esterase,Urine Large (Negative); Mucus,Urine Rare /hpf; Nitrite,Urine Negative (Negative); PH, Urine 5.5 (5.0-8.0); Protein,Urine 2+ (Negative); RBC,Urine 40 /hpf (0-5); Specific Gravity,Urine 1.025 (1.001-1.035); Squamous Epithelial Cell,Urine 10 /hpf (0-4); Urobilinogen,Urine <2.0 mg/dL (<2.0); WBC,Urine 42 /hpf (0-5)
[2017-09-05] MEDS ORDERED: IBUPROFEN 600 MG TAB PO STA (15:45)
[2017-09-05] MEDS ORDERED: ACETAMINOPHEN TAB 500 MG TAB PO STA (15:45)
--- NOTE | 2017-09-05 16:57 | P.CNPUL ---
History of Present Illness Consult date: 09/05/17 Reason for consult: dyspnea, COPD History of present illness: A pleasant 83-year-old female patient with known history of advanced COPD who has been followed up in our office by Dr. Guadalupe. She is also known to have hyperlipidemia and ALLERGIC rhinitis and acid reflux. The patient has degenerative arthritis also. The patient came into the emergency department having physical therapy breathing. Note that on outpatient basis she has been maintained on a combination of Spiriva and Symbicort and her baseline FEV1 based on a spirometer this was done in 2017 showed an FEV1 of 0.84 L which is 41 % of predicted with some limited reversibility post-bronchodilation. The patient came in today to the emergency department and the patient complained of increased difficulty breathing without any significant sputum production. She was getting progressively more weak. She did not have any fever. She has no chest pain. No palpitations. No nausea vomiting or diarrhea. Chest x-ray shows hyperinflation COPD without any acute abnormalities. She was admitted to the hospital for further treatment. She is febrile with a temperature of 11.5 max and her subsequent temperatures 100.4. Her pulse ox was 87% on room air and currently she is on 2 L of oxygen nasal cannula bringing her pulse ox up to 95%. First set of troponin was at 0.097. Lactic acid level was at 1.4. The urinalysis was also abnormal with evidence of pyuria with 42 WBCs. Influenza screen was negative. EKG showed a normal sinus rhythm. There is some nonspecific T-wave inversions and depression and the ST segment in the lateral leads. Review of Systems Constitutional: Denies weight loss, denies fatigue, no night sweats, no fever, no chills. Cardiovascular: Denies palpitations, denied chest pain or chest pressure, denies any edema. GI: Denies nausea vomiting abdominal pain diarrhea or constipation. Genitourinary: Denies dysuria, frequency, or urgency. Neurologic: Denies weakness, confusion, dizziness, or numbness. Musculoskeletal: Denies weakness arthralgia or myalgia Skin: Denies any skin lesions or rashes. Endocrine: No polydipsia, no polyuria, no heat or cold sensitivity. Pulmonary: Progressive increase in shortness of breath, and wheezing Hematologic: No clotting bleeding or bruising Psychiatric: No symptoms of active depression. Past Medical History Past Medical History: Cancer, COPD, Osteoarthritis (OA), Pneumonia Additional Past Medical History / Comment(s): COPD, acid reflux, hyperlipidemia , ALLERGIC rhinitis, skin cancer, previous history of pneumonia back in 2016, previous history of fibrocystic breast disease with previous biopsy showing no evidence of any malignancy, degenerative cervica spine disease, history of distal esophageal Schatzki considering status post dilatation and the patient is small hiatal hernia. History of Any Multi-Drug Resistant Organisms: None Reported Past Surgical History: Hysterectomy, Tonsillectomy Additional Past Surgical History / Comment(s): rotator cuff rt, lt ankle with quan, breast cyst removed, BREAST BIOPSY, EGD WITH DILATION. Past Anesthesia/Blood Transfusion Reactions: No Reported Reaction Additional Past Anesthesia/Blood Transfusion Reaction / Comment(s): PT DOES NOT KNOW FAMILY HX (FOSTER CHILD) Past Psychological History: No Psychological Hx Reported Smoking Status: Former smoker Past Alcohol Use History: None Reported Past Drug Use History: None Reported - Past Family History Mother Family Medical History: No Reported History Additional Family Medical History / Comment(s): STATES UNKNOWN FAMILY HX. Medications and Allergies Home Medications Medication Instructions Recorded Confirmed Type Aspirin 81 mg PO DAILY 01/25/15 09/05/17 History Budesonide-Formot 160-4.5 Mcg 2 puff INHALATION RT-BID 01/25/15 09/05/17 History [Symbicort 160-4.5 Mcg Inhaler] Calcium Carbonate/Vitamin D3 1 tab PO TID 01/25/15 09/05/17 History [Calcium 600 + Vit D Tablet] EPINEPHrine [Epipen 2-Igor] 0.3 mg IM ONCE PRN 01/25/15 09/05/17 History Montelukast [Singulair] 10 mg PO HS 01/25/15 09/05/17 History Multivit-Min/FA/Lycopene/Lut 1 tab PO BID 01/25/15 09/05/17 History [Centrum Silver Tablet] Simvastatin [Zocor] 20 mg PO HS 01/25/15 09/05/17 History Tiotropium 18 Mcg/Puff [Spiriva] 1 cap INHALATION RT-DAILY 11/01/15 09/05/17 History Citalopram Hydrobromide [CeleXA] 10 mg PO HS 05/27/17 09/05/17 History Loratadine [Claritin] 10 mg PO DAILY 05/27/17 09/05/17 History Propylene Glycol/Peg 400/Pf 1 dropper BOTH EYES DAILY PRN 05/27/17 09/05/17 History [Systane 0.3-0.4% Eye Drops] Sodium Chloride 0.65% Nasal [Deep 2 spray NASAL BID 05/27/17 09/05/17 History Sea (Saline)] Benzonatate [Tessalon Perles] 100 mg PO TID PRN 09/05/17 09/05/17 History Doxycycline Monohydrate [Monodox] 100 mg PO Q12HR 09/05/17 09/05/17 History Allergies Allergy/AdvReac Type Severity Reaction Status Date / Time codeine Allergy Unknown Nausea & Verified 09/05/17 14:57 Vomiting Penicillins Allergy Unknown Rash/Hives, Verified 09/05/17 14:57 Throat Swelling venom-honey bee Allergy Unknown Anaphylaxis Verified 09/05/17 14:57 [bee venom (honey bee)] Sulfa (Sulfonamide AdvReac Unknown Nausea Verified 09/05/17 14:57 Antibiotics) Physical Exam Vitals: Vital Signs Temp Pulse Resp BP Pulse Ox 09/05/17 16:34 99 F 95 20 114/60 96 09/05/17 15:38 100.4 F H 98 20 113/62 95 09/05/17 14:03 101.5 F H 98 24 157/85 87 L Intake and Output 09/05/17 09/05/17 09/05/17 06:59 14:59 22:59 Other: Weight 54.431 kg Physical exam revealed a 82-year-old female in no distress Head exam was generally normal. There was no scleral icterus or corneal arcus. Mucous membranes were moist. HEENT: Anicteric sclerae, pink and moist conjunctivae. Extraocular movements intact, pupils are reactive to light they are round and equal. External inspection of ears and nose showed normal mucosa. Oral mucosa, soft and hard palate tongue and posterior pharynx are intact. Neck: Supple no neck masses, no JVD, no thyroid enlargement, no adenopathy. Lungs: Symmetrical expansion, Diminished breath sounds at the bases no crackles or rhonchi and there is bilateral wheezes CVS: Regular rate and rhythm, normal S1 and S2, no gallops, no murmur, no rubs. Abdomen: Soft, nontender, no megaly, no rebound, no guarding, positive bowel sounds. Extremities: No clubbing, no edema, no cyanosis, 2+ pulses in upper and lower extremities.Laceration to right lower extremity covered with sterile dressing, not fully visualized. Musculoskeletal: Muscle strength and tone normal. Neurologic: Alert and oriented 3, normal affect, no focal neurologic deficits. Examination of the skin revealed no evidence of significant rashes, suspicious appearing nevi or other concerning lesions. Results - Laboratory Findings CBC and BMP: 09/05/17 14:10 09/05/17 14:10 PT/INR, D-dimer PT 10.1 sec (9.0-12.0) 09/05/17 14:10 INR 1.0 (<1.2) 09/05/17 14:10 Abnormal lab findings: Abnormal Labs 09/05/17 09/05/17 09/05/17 14:10 14:10 14:10 Plt Count 108 L Lymphocytes # 0.7 L BUN 29 H Glucose 192 H Troponin I 0.097 H* Total Protein 6.2 L Urine Appearance Urine Protein Urine Ketones Urine Blood Ur Leukocyte Esterase Urine RBC Urine WBC Ur Squamous Epith Cells Urine Mucus 09/05/17 15:13 Plt Count Lymphocytes # BUN Glucose Troponin I Total Protein Urine Appearance Turbid H Urine Protein 2+ H Urine Ketones 1+ H Urine Blood Small H Ur Leukocyte Esterase Large H Urine RBC 40 H Urine WBC 42 H Ur Squamous Epith Cells 10 H Urine Mucus Rare H - Diagnostic Findings Chest x-ray: image reviewed Assessment and Plan Plan: Assessment 1 acute COPD exacerbation with secondary shortness of breath. Influenza screen is negative. 2 severe COPD with a baseline FEV1 of 40% of predicted maintain and accommodation Spiriva and Symbicort on outpatient basis 3 fever currently under investigation. Rule out underlying pneumonia. Rule out secondary to an urine tract infection. The patient has an abnormal urinalysis. 4 abnormal troponin with some nonspecific EKG changes. The patient's history of any chest pain. Will need cardiology to evaluate this patient. 5 hyperlipidemia 6 ALLERGIC rhinitis 7 fibrocystic disease of the breast 8bhistory of distal individual stricture with Schatzki's ring, status post dilatation Plan we'll cover this patient with a combination of bronchodilators and antibiotics. The patient will placed on a combination of Rocephin and Zithromax. Check sputum Gram stain and culture. Check urine culture. Check blood culture. Echocardiogram. Consult cardiology. Monitor troponins. We'll continue to follow.
[2017-09-05] MEDS ORDERED: IPRATROPIUM-ALBUTEROL 3 ML NEB INHALATION PRN (17:17)
[2017-09-05] MEDS: methylPREDNISolone SOD SUCCI 125 MG/2 ML VIAL IV SCH ×2 (18:33→23:01)
[2017-09-05] MEDS ORDERED: ACETAMINOPHEN TAB 325 MG TAB PO PRN (19:23)
[2017-09-05] MEDS ORDERED: SYMBICORT 160-4.5 MCG INHALER INHALATION SCH (20:00)
[2017-09-05] MEDS: SYMBICORT 160-4.5 MCG INHALER INHALATION SCH (20:10)
[2017-09-05 20:36] LABS: Glucose,Whole Blood 137 mg/dL (75-99)
[2017-09-05] MEDS: MONTELUKAST 10 MG TAB PO SCH (20:37)
[2017-09-05] MEDS: CITALOPRAM HYDROBROMIDE 10 MG TAB PO SCH (20:38)
[2017-09-05] MEDS ORDERED: ATORVASTATIN 10 MG TAB PO SCH (21:00)
[2017-09-05] MEDS: INSULIN ASPART 100 UNIT/ML 1 ML 10 ML VIAL SQ SCH (21:05)
[2017-09-05] MEDS ORDERED: BENZONATATE 100 MG CAP PO PRN (21:55)
[2017-09-05] MEDS ORDERED: ARTIFICIAL TEARS-HYPROMELLOSE DROPS 15 ML BTL BOTH EYES PRN (21:55)
--- NOTE | 2017-09-05 22:43 | HP ---
HISTORY AND PHYSICAL CHIEF COMPLAINTS: Shortness of breath and cough. HISTORY OF PRESENT ILLNESS: This 82-year-old woman with past medical history of COPD, GERD, hyperlipidemia, history of DJD, history of pneumonia, being followed by Dr. Maza in the outpatient setting, was complaining of shortness of breath and cough for the past several days. The patient apparently was on outpatient doxycycline. Because of lack of improvement, the patient came to the emergency room and was admitted for further evaluation and treatment. The patient had features of suspected bronchopneumonia. Influenza was negative. Patient was started on broad-spectrum IV antibiotics. Steroids have been initiated. Dr. Corrigan is following the patient closely. There is no history of any fever, rigor or chills. No history of headache, loss of consciousness, seizures. Her troponins after admission have gone up to 3.940, indicating acute ubl-KI-iqostsk- elevation myocardial infarction. Patient also has features of UTI. PAST MEDICAL HISTORY: 1. COPD. 2. GERD. 3. Hyperlipidemia. 4. History of DJD. 5. History of pneumonia. HOME MEDICATIONS: 1. Spiriva 1 puff daily. 2. Saline nasal drops. 3. Zocor 20 mg at bedtime. 4. Propylene Glycol eyedrops. 5. Multivitamins 1 p.o. daily. 6. Singular 10 mg at bedtime. 7. Claritin 10 mg p.o. daily. 8. EpiPen p.r.n. 9. Monodox 100 mg p.o. b.i.d. 10.Celexa 10 mg p.o. at bedtime. 11.Calcium with vitamin D 1 p.o. t.i.d. 12.Symbicort 160/4.5 two puffs b.i.d. 13.Tessalon Perles 100 mg p.o. t.i.d. p.r.n. 14.Aspirin 81 mg p.o. daily. ALLERGIES: 1. CODEINE. 2. PENICILLIN. 3. HONEY BEE VENOM. 4. SULFA. FAMILY HISTORY: No history of heart disease or strokes in the family. SOCIAL HISTORY: Previous history of smoking. No current smoking. REVIEW OF SYSTEMS: ENT: Diminished hearing. Diminished vision. CARDIOVASCULAR SYSTEM: No angina, palpitations. RESPIRATORY SYSTEM: As mentioned earlier. GI: No nausea, vomiting. : No dysuria or retention. NERVOUS SYSTEM: No numbness, weakness. ALLERGY/IMMUNOLOGY: No asthma, hayfever. MUSCULOSKELETAL: As mentioned earlier. HEMATOLOGY/ONCOLOGY: No history of anemia. ENDOCRINE: No history of diabetes, hypothyroidism. CONSTITUTIONAL: As mentioned earlier. DERMATOLOGY: Negative. RHEUMATOLOGY: Negative. PSYCHIATRY: As mentioned earlier. PHYSICAL EXAMINATION: Alert and oriented x3. Pulse 84, blood pressure 93/50, respiration 20, temperature 99 degrees, pulse ox 96% on 2 L. HEENT: Conjunctivae normal. Oral mucosa moist. NECK: No jugular venous distention. No carotid bruit. No lymph node enlargement. CARDIOVASCULAR SYSTEM: S1, S2 muffled. No S3. No S4. RESPIRATORY SYSTEM: Breath sounds diminished at the bases. Bilateral scattered rhonchi and crackles. Expiratory wheezing also present. ABDOMEN: Soft, nontender. No mass palpable. LEGS: No edema. No swelling. NERVOUS SYSTEM: Higher functions as mentioned earlier. Moves all 4 limbs. No focal motor or sensory deficit. LYMPHATICS: No lymph node palpable in neck, axillae or groin. SKIN: No ulcer, rash, bleeding. LABS: WBC 5.8, hemoglobin 12.3, platelets 108. Glucose 192. Troponin 3.940. UA noted. ASSESSMENT: 1. Chronic obstructive pulmonary disease, acute exacerbation, with possible bilateral bronchopneumonia. 2. Troponin 3.940, indicating acute non HP-jwavsim-hvtnigbqp myocardial infarction. 3. Urinary tract infection. 4. Thrombocytopenia. 5. History of chronic obstructive pulmonary disease. 6. History of gastroesophageal reflux disease. 7. Hyperlipidemia. 8. History of degenerative joint disease. 9. History of pneumonia. 10.History of allergic rhinitis. 11.History of fibrocystic breast disease. 12.Cervical degenerative joint disease. 13.History of hysterectomy. 14.Remote history of nicotine dependence. RECOMMENDATIONS AND DISCUSSION: In this 82-year-old woman who presented with multiple complex medical issues, we will monitor the patient closely, continue the current medications, continue symptomatic treatment. Antiplatelet agents. I would also recommend beta blockers, empiric IV antibiotics, bronchodilators, steroids, cardiology and pulmonary consultations. Overall prognosis extremely guarded because of multiple complex medical issues. Two-D echo has been ordered. Further recommendations to follow. A copy of this dictation is being forwarded to Dr. Maza, who is the primary physician. MMODL / IJN: [id number] /
[2017-09-05] MEDS: CALCIUM CARB-VIT D 500MG-200UN 1 EACH TAB PO SCH (22:50)
[2017-09-06 01:32] LABS: Hemoglobin A1C 5.5 % (4.0-6.0)
[2017-09-06 05:32] LABS: Glucose,Whole Blood 117 mg/dL (75-99)
[2017-09-06] MEDS: INSULIN ASPART 100 UNIT/ML 1 ML 10 ML VIAL SQ SCH ×4 (05:59→21:29)
[2017-09-06 06:47] LABS: Basophils % (A) 0 %; Eosinophils % (A) 0 %; HGB 12.5 gm/dL (11.4-16.0); Lymphocytes # (A) 0.4 k/uL (1.0-4.8); Lymphocytes % (A) 5 %; MCH 29.6 pg (25.0-35.0); MCHC 32.9 g/dL (31.0-37.0); MCV 90.1 fL (80.0-100.0); Mean Platelet Volume 6.8; Monocytes # (A) 0.2 k/uL (0-1.0); Monocytes % (A) 2 %; Neutrophils # (A) 8.3 k/uL (1.3-7.7); Neutrophils % (A) 92 %; Platelet Count 113 k/uL (150-450); RBC 4.21 m/uL (3.80-5.40); RDW 12.9 % (11.5-15.5)
[2017-09-06] MEDS: MULTIVITAMINS, THERA 1 EACH TAB PO SCH ×2 (06:48→18:07)
[2017-09-06] MEDS: CALCIUM CARB-VIT D 500MG-200UN 1 EACH TAB PO SCH ×3 (06:48→18:07)
[2017-09-06] MEDS: methylPREDNISolone SOD SUCCI 125 MG/2 ML VIAL IV SCH ×3 (06:48→18:07)
[2017-09-06] MEDS: SYMBICORT 160-4.5 MCG INHALER INHALATION SCH ×2 (06:59→19:59)
[2017-09-06 07:05] LABS: Calcium 8.7 mg/dL (8.4-10.2); Potassium 4.5 mmol/L (3.5-5.1)
[2017-09-06] MEDS: LORATADINE 10 MG TAB PO SCH (07:35)
[2017-09-06] MEDS: ASPIRIN 81 MG PO SCH (07:35)
--- NOTE | 2017-09-06 07:50 | ECHOF ---
Referral Reason:assess LV function MEASUREMENTS -------- HEIGHT: 160.0 cm WEIGHT: 54.4 kg BP: RVIDd: 2.8 cm (< 3.3) IVSd: 0.8 cm (0.6 - 1.1) LVIDd: 4.1 cm (3.9 - 5.3) LVPWd: 0.8 cm (0.6 - 1.1) IVSs: 1.0 cm LVIDs: 3.3 cm LVPWs: 1.5 cm LA Diam: 2.8 cm (2.7 - 3.8) LAESV Index (A-L): 24.49 ml/m Ao Diam: 3.1 cm (2.0 - 3.7) AV Cusp: 2.0 cm (1.5 - 2.6) EPSS: 0.6 cm MV E Isidro: 0.87 m/s MV DecT: 195 ms MV A Isidro: 1.07 m/s MV E/A Ratio: 0.82 RAP: 5.00 mmHg RVSP: 43.23 mmHg MV EF SLOPE: 96.93 mm/s (70 - 150) MV EXCURSION: 1.55 cm (> 18.000) FINDINGS -------- Sinus rhythm with extra systolic beats. This was a technically good study. The left ventricular size is normal. Left ventricular wall thickness is normal. Overall left vent ricular systolic function is low-normal with, an EF between 50 - 55 %. Basal inferior LV wall motio n is hypokinetic. The right ventricle is normal in size. Normal LA size by volume 22+/-6 ml/m2. The right atrium is normal in size. Aortic valve is trileaflet and is mildly thickened. The mitral valve leaflets are mildly thickened. Mild mitral annular calcification present. Modera nf-ae-rldpla mitral regurgitation is present. Moderate tricuspid regurgitation present. There is mild pulmonary hypertension. The right ventric ular systolic pressure, as measured by Doppler, is 43.23mmHg. Trace/mild (physiologic) pulmonic regurgitation. The aortic root size is normal. Normal inferior vena cava with normal inspiratory collapse consistent with estimated right atrial pre ssure of 5 mmHg. There is no pericardial effusion. CONCLUSIONS -------- 1. Sinus rhythm with extra systolic beats. 2. This was a technically good study. 3. The left ventricular size is normal. 4. Left ventricular wall thickness is normal. 5. Overall left ventricular systolic function is low-normal with, an EF between 50 - 55 %. 6. Basal inferior LV wall motion is hypokinetic. 7. The right ventricle is normal in size. 8. Normal LA size by volume 22+/-6 ml/m2. 9. The right atrium is normal in size. 10. Aortic valve is trileaflet and is mildly thickened. 11. The mitral valve leaflets are mildly thickened. 12. Mild mitral annular calcification present. 13. Gdsgutev-do-ozpysq mitral regurgitation is present. 14. Moderate tricuspid regurgitation present. 15. There is mild pulmonary hypertension. 16. The right ventricular systolic pressure, as measured by Doppler, is 43.23mmHg. 17. Trace/mild (physiologic) pulmonic regurgitation. 18. The aortic root size is normal. 19. Normal inferior vena cava with normal inspiratory collapse consistent with estimated right atrial pressure of 5 mmHg. 20. There is no pericardial effusion. GAS JOCKEY: GLENIS Caro
--- NOTE | 2017-09-06 08:53 | XR ---
EXAMINATION TYPE: XR chest 2V DATE OF EXAM: 09/06/2017 COMPARISON: Prior chest x-ray 09/05/2017 HISTORY: Pneumonia TECHNIQUE: Frontal and lateral views of the chest are obtained. FINDINGS: Prominent lung volumes are noted. Heart remains enlarged. There are overlying cardiac lead s. No pneumothorax. No evident pleural effusion or airspace disease. There is bronchial wall thickeni ng. Prominent epicardial fat pads noted. IMPRESSION: Findings are stable. Cardiomegaly. Correlate for COPD, bronchitis.
[2017-09-06] MEDS ORDERED: HEPARIN SODIUM,PORCINE 5,000 UNIT/ML 1 ML VIAL SQ SCH (09:00)
[2017-09-06] MEDS ORDERED: HEPARIN SODIUM,PORCINE 5,000 UNIT/ML 1 ML VIAL IV PRN (10:59)
[2017-09-06] MEDS ORDERED: HEPARIN SODIUM,PORCINE 5,000 UNIT/ML 1 ML VIAL IV ONE (10:59)
--- NOTE | 2017-09-06 11:03 | P.PN ---
Progress Note - Text this is an addendum to the dictated cardiology consultation.the patient has a history of severe COPD, she presents with progressive dyspnea, cough and fatigue. She was febrile on admission. She denies any chest discomfort. Cardiology consultation was requested because of elevation of the troponin. She has no prior history of documented CAD. She underwent cardiac catheterization in 2011 and at that time there was no evidence of obstructive CAD.she denies any peripheral edema, PND or palpitations.she has occasional dizziness with change of position. Her lung examination shows decrease air exchange with few crackles, she has a holosystolic murmur at the apex and no edema. Her echocardiogram shows an ejection fraction of 50-55% with moderate severe mitral regurgitation. Her EKG shows no acute changes and her troponin peaked around 3. The patient presents with febrile episodes with a respiratory infection. She has a history of significant COPD. Her lab data are consistent with non-STEMI that could be related to a type 2 event in view of the absence of chest discomfort.at this time I will start her on IV heparin, continue aggressive medical regimen. She may benefit from cardiac catheterization but I would favor until her infectious process resolves. Depending on her progress further recommendations will be made. Thank you for this consult we will follow with you.
[2017-09-06 11:50] LABS: Glucose,Whole Blood 108 mg/dL (75-99)
[2017-09-06 12:00] LABS: Basophils % (A) 0 %; Eosinophils % (A) 0 %; HCT 39.5 % (34.0-46.0); HGB 13.2 gm/dL (11.4-16.0); Lymphocytes # (A) 0.8 k/uL (1.0-4.8); Lymphocytes % (A) 8 %; MCH 29.9 pg (25.0-35.0); MCHC 33.3 g/dL (31.0-37.0); MCV 89.7 fL (80.0-100.0); Mean Platelet Volume 7.1; Monocytes # (A) 0.2 k/uL (0-1.0); Monocytes % (A) 2 %; Neutrophils % (A) 89 %; Platelet Count 125 k/uL (150-450); RBC 4.41 m/uL (3.80-5.40); RDW 12.9 % (11.5-15.5); WBC 10.1 k/uL (3.8-10.6)
[2017-09-06] MEDS ORDERED: AZITHROMYCIN 500 MG in SODIUM CHLORIDE 0.9% 250 ML IVPB SCH (12:00)
--- NOTE | 2017-09-06 12:41 | P.PN ---
Subjective Progress Note Date: 09/06/17 A pleasant 83-year-old female patient with known history of advanced COPD who has been followed up in our office by Dr. Guadalupe. She is also known to have hyperlipidemia and ALLERGIC rhinitis and acid reflux. The patient has degenerative arthritis also. The patient came into the emergency department having physical therapy breathing. Note that on outpatient basis she has been maintained on a combination of Spiriva and Symbicort and her baseline FEV1 based on a spirometer this was done in 2017 showed an FEV1 of 0.84 L which is 41 % of predicted with some limited reversibility post-bronchodilation. The patient came in today to the emergency department and the patient complained of increased difficulty breathing without any significant sputum production. She was getting progressively more weak. She did not have any fever. She has no chest pain. No palpitations. No nausea vomiting or diarrhea. Chest x-ray shows hyperinflation COPD without any acute abnormalities. She was admitted to the hospital for further treatment. She is febrile with a temperature of 11.5 max and her subsequent temperatures 100.4. Her pulse ox was 87% on room air and currently she is on 2 L of oxygen nasal cannula bringing her pulse ox up to 95%. First set of troponin was at 0.097. Lactic acid level was at 1.4. The urinalysis was also abnormal with evidence of pyuria with 42 WBCs. Influenza screen was negative. EKG showed a normal sinus rhythm. There is some nonspecific T-wave inversions and depression and the ST segment in the lateral leads. On today's evaluation, the patient is less short of breath compared to yesterday. No cervical respiratory distress. No chest pain. She ruled in for an acute non-ST segment elevation myocardial infarction and the patient will be having a cardiac catheterization later stage. Her fever has defervesced and the patient has remained afebrile for now. No dysuria frequency or urgency. Urine culture is still pending for now. Chest x-ray as mentioned was negative and the patient's chest x-ray showed no evidence of any acute pneumonia. Urine analysis is also was abnormal. Urine cultures of been negative and the patient is on a combination of Rocephin and Zithromax. The echocardiogram showed a normal ejection fraction with 50-50% and the patient has moderate severe mitral regurgitation, moderate TR, right ventricular systolic pressure of around 43 mmHg. No pericardial effusion. Objective - Vital Signs Vital signs: Vital Signs Temp 97 F L 09/06/17 07:51 Pulse 68 09/06/17 11:08 Resp 16 09/06/17 07:54 BP 111/62 09/06/17 07:51 Pulse Ox 96 09/06/17 07:51 Intake & Output 09/05/17 09/06/17 09/06/17 18:59 06:59 18:59 Intake Total 780 100 0 Balance 780 100 0 Weight 54.431 kg 55 kg Intake: Oral 780 100 0 Other: Voiding Method Toilet Toilet # Voids 1 - Exam Physical exam revealed a 82-year-old female in no distress Head exam was generally normal. There was no scleral icterus or corneal arcus. Mucous membranes were moist. HEENT: Anicteric sclerae, pink and moist conjunctivae. Extraocular movements intact, pupils are reactive to light they are round and equal. External inspection of ears and nose showed normal mucosa. Oral mucosa, soft and hard palate tongue and posterior pharynx are intact. Neck: Supple no neck masses, no JVD, no thyroid enlargement, no adenopathy. Lungs: Symmetrical expansion, Diminished breath sounds at the bases no crackles or rhonchi and there is bilateral wheezes CVS: Regular rate and rhythm, normal S1 and S2, no gallops, no murmur, no rubs. Abdomen: Soft, nontender, no megaly, no rebound, no guarding, positive bowel sounds. Extremities: No clubbing, no edema, no cyanosis, 2+ pulses in upper and lower extremities.Laceration to right lower extremity covered with sterile dressing, not fully visualized. Musculoskeletal: Muscle strength and tone normal. Neurologic: Alert and oriented 3, normal affect, no focal neurologic deficits. Examination of the skin revealed no evidence of significant rashes, suspicious appearing nevi or other concerning lesions. - Labs CBC & Chem 7: 09/06/17 11:25 09/06/17 06:20 Labs: Abnormal Lab Results - Last 24 Hours (Table) 09/05/17 09/05/17 09/05/17 Range/Units 14:10 14:10 14:10 Plt Count 108 L (150-450) k/uL Neutrophils # (1.3-7.7) k/uL Lymphocytes # 0.7 L (1.0-4.8) k/uL BUN 29 H (7-17) mg/dL Creatinine (0.52-1.04) mg/dL Glucose 192 H (74-99) mg/dL POC Glucose (mg/dL) (75-99) mg/dL Troponin I 0.097 H* (0.000-0.034) ng/mL Total Protein 6.2 L (6.3-8.2) g/dL HDL Cholesterol (40-60) mg/dL Urine Appearance (Clear) Urine Protein (Negative) Urine Ketones (Negative) Urine Blood (Negative) Ur Leukocyte Esterase (Negative) Urine RBC (0-5) /hpf Urine WBC (0-5) /hpf Ur Squamous Epith Cells (0-4) /hpf Urine Mucus (None) /hpf 09/05/17 09/05/17 09/05/17 Range/Units 15:13 19:35 20:34 Plt Count (150-450) k/uL Neutrophils # (1.3-7.7) k/uL Lymphocytes # (1.0-4.8) k/uL BUN (7-17) mg/dL Creatinine (0.52-1.04) mg/dL Glucose (74-99) mg/dL POC Glucose (mg/dL) 137 H (75-99) mg/dL Troponin I 3.940 H* (0.000-0.034) ng/mL Total Protein (6.3-8.2) g/dL HDL Cholesterol (40-60) mg/dL Urine Appearance Turbid H (Clear) Urine Protein 2+ H (Negative) Urine Ketones 1+ H (Negative) Urine Blood Small H (Negative) Ur Leukocyte Esterase Large H (Negative) Urine RBC 40 H (0-5) /hpf Urine WBC 42 H (0-5) /hpf Ur Squamous Epith Cells 10 H (0-4) /hpf Urine Mucus Rare H (None) /hpf 09/06/17 09/06/17 09/06/17 Range/Units 05:31 06:20 06:20 Plt Count 113 L (150-450) k/uL Neutrophils # 8.3 H (1.3-7.7) k/uL Lymphocytes # 0.4 L (1.0-4.8) k/uL BUN 41 H (7-17) mg/dL Creatinine 1.21 H (0.52-1.04) mg/dL Glucose 125 H (74-99) mg/dL POC Glucose (mg/dL) 117 H (75-99) mg/dL Troponin I (0.000-0.034) ng/mL Total Protein (6.3-8.2) g/dL HDL Cholesterol 70 H (40-60) mg/dL Urine Appearance (Clear) Urine Protein (Negative) Urine Ketones (Negative) Urine Blood (Negative) Ur Leukocyte Esterase (Negative) Urine RBC (0-5) /hpf Urine WBC (0-5) /hpf Ur Squamous Epith Cells (0-4) /hpf Urine Mucus (None) /hpf 09/06/17 09/06/17 09/06/17 Range/Units 06:20 11:25 11:48 Plt Count 125 L (150-450) k/uL Neutrophils # 9.0 H (1.3-7.7) k/uL Lymphocytes # 0.8 L (1.0-4.8) k/uL BUN (7-17) mg/dL Creatinine (0.52-1.04) mg/dL Glucose (74-99) mg/dL POC Glucose (mg/dL) 108 H (75-99) mg/dL Troponin I 1.490 H* (0.000-0.034) ng/mL Total Protein (6.3-8.2) g/dL HDL Cholesterol (40-60) mg/dL Urine Appearance (Clear) Urine Protein (Negative) Urine Ketones (Negative) Urine Blood (Negative) Ur Leukocyte Esterase (Negative) Urine RBC (0-5) /hpf Urine WBC (0-5) /hpf Ur Squamous Epith Cells (0-4) /hpf Urine Mucus (None) /hpf Microbiology - Last 24 Hours (Table) 09/05/17 15:13 Urine Culture - Preliminary Urine,Voided Assessment and Plan Plan: Assessment 1 acute COPD exacerbation with secondary shortness of breath. Influenza screen is negative. Clinically improving with a combination of bronchodilators and steroids and antibiotics. 2 severe COPD with a baseline FEV1 of 40% of predicted maintain and accommodation Spiriva and Symbicort on outpatient basis 3 fever currently under investigation. Rule out underlying pneumonia. Rule out secondary to an urine tract infection. The patient has an abnormal urinalysis. 4 acute non-ST segment elevation myocardial infarction. Will need a cardiac catheterization later stage 5 hyperlipidemia 6 ALLERGIC rhinitis 7 fibrocystic disease of the breast 8 history of distal individual stricture with Schatzki's ring, status post dilatation Plan Continue current treatment. Echocardiogram was noted. The patient would have a cardiac catheterization later stage in regards to her acute non-ST segment elevation myocardial infarction. We'll continue to follow up this patient along with aggressive the consultants.
[2017-09-06 12:47] LABS: Partial Thromboplastin Time 23.8 sec (22.0-30.0); Prothrombin Time 10.1 sec (9.0-12.0)
[2017-09-06] MEDS: HEPARIN SOD,PORK IN 0.45% NACL 25,000 UNIT in 0.45% NACL 1 500ML.BAG IV SCH (12:48)
[2017-09-06] MEDS: SODIUM CHLORIDE 0.9% 1,000 ML IV SCH (12:50)
[2017-09-06] MEDS: SODIUM CHLORIDE 0.65% NASAL SPRAY 44 ML BTL NASAL SCH ×2 (12:51→21:19)
--- NOTE | 2017-09-06 13:56 | P.CRDCN ---
History of Present Illness Consult date: 09/06/17 Requesting physician: Hyacinth Sullivan Reason for Consult (text): elevated troponins Chief complaint: difficulty breathing, cough History of present illness: This is a pleasant 82 year-old female who was last seen by Dr. Kay in 2011. She has a history of COPD, hyperlipidemia and she underwent cardiac catheterization in 2011 due to complaints of chest discomfort and stress test showing possible ischemia. Heart catheterization in 2012 showed normal coronary arteries with normal left ventricular function. She presented to the hospital on this admission with complaints of shortness of breath, cough, weakness as well as nausea and dry heaving. Upon presentation she was found to be febrile with a temperature of 101.5. Chest x-ray on admission show prominent lung volumes suggestive underlying COPD and bronchial wall thickening , correlate for bronchitis, reactive airway disease. EKG on admission shows sinus rhythm with ST-T wave abnormalities. We were asked to see the patient in consultation due to elevated troponins which came back at 0.097, 3.94 and 1.49. Echocardiogram showed basal inferior wall hypokinesis with an ejection fraction of 50-55%, moderate to severe MR, moderate TR with mild pulmonary hypertension. Upon examination, patient is resting comfortably in bed. She does have a productive cough however she has not able to expectorate the sputum. She feels her breathing has improved and she's had no more nausea. Past Medical History Past Medical History: Cancer, COPD, GERD/Reflux, Hyperlipidemia, Osteoarthritis (OA), Pneumonia Additional Past Medical History / Comment(s): bronchits, acid reflux,,, ALLERGIC rhinitis, skin cancer, previous history of pneumonia back in 2016, previous history of fibrocystic breast disease with previous biopsy showing no evidence of any malignancy, degenerative cervical spine disease, history of difficulty swallowing had egd/w bx-neg and dilation small hiatal hernia.past fall w fx to ribs, nose, wrist. pt stated she had a pne vaccine few years ago nusre of date . investment underwriter unable to verify date at time of this admit. History of Any Multi-Drug Resistant Organisms: None Reported Past Surgical History: Hysterectomy, Tonsillectomy Additional Past Surgical History / Comment(s): rotator cuff rt, lt ankle with quan, breast cyst removed, lt breast bx- neg, EGD WITH DILATION.suzy cataracts w/ lens implants Past Anesthesia/Blood Transfusion Reactions: No Reported Reaction Additional Past Anesthesia/Blood Transfusion Reaction / Comment(s): PT DOES NOT KNOW FAMILY HX (FOSTER CHILD) Smoking Status: Former smoker - Past Family History Mother Family Medical History: No Reported History Additional Family Medical History / Comment(s): STATES UNKNOWN FAMILY HX. Medications and Allergies Home Medications Medication Instructions Recorded Confirmed Type Aspirin 81 mg PO DAILY 01/25/15 09/05/17 History Budesonide-Formot 160-4.5 Mcg 2 puff INHALATION RT-BID 01/25/15 09/05/17 History [Symbicort 160-4.5 Mcg Inhaler] Calcium Carbonate/Vitamin D3 1 tab PO TID 01/25/15 09/05/17 History [Calcium 600 + Vit D Tablet] EPINEPHrine [Epipen 2-Igor] 0.3 mg IM ONCE PRN 01/25/15 09/05/17 History Montelukast [Singulair] 10 mg PO HS 01/25/15 09/05/17 History Multivit-Min/FA/Lycopene/Lut 1 tab PO BID 01/25/15 09/05/17 History [Centrum Silver Tablet] Simvastatin [Zocor] 20 mg PO HS 01/25/15 09/05/17 History Tiotropium 18 Mcg/Puff [Spiriva] 1 cap INHALATION RT-DAILY 11/01/15 09/05/17 History Citalopram Hydrobromide [CeleXA] 10 mg PO HS 05/27/17 09/05/17 History Loratadine [Claritin] 10 mg PO DAILY 05/27/17 09/05/17 History Propylene Glycol/Peg 400/Pf 1 dropper BOTH EYES DAILY PRN 05/27/17 09/05/17 History [Systane 0.3-0.4% Eye Drops] Sodium Chloride 0.65% Nasal [Deep 2 spray NASAL BID 05/27/17 09/05/17 History Sea (Saline)] Benzonatate [Tessalon Perles] 100 mg PO TID PRN 09/05/17 09/05/17 History Doxycycline Monohydrate [Monodox] 100 mg PO Q12HR 09/05/17 09/05/17 History Allergies Allergy/AdvReac Type Severity Reaction Status Date / Time codeine Allergy Unknown Nausea & Verified 09/05/17 14:57 Vomiting Penicillins Allergy Unknown Rash/Hives, Verified 09/05/17 14:57 Throat Swelling venom-honey bee Allergy Unknown Anaphylaxis Verified 09/05/17 14:57 [bee venom (honey bee)] Sulfa (Sulfonamide AdvReac Unknown Nausea Verified 09/05/17 14:57 Antibiotics) Physical Exam Vitals: Vital Signs Temp Pulse Pulse Resp BP BP Pulse Ox 09/06/17 07:54 63 16 09/06/17 07:51 97 F L 63 16 111/62 96 09/06/17 06:59 95 09/06/17 04:00 96.8 F L 64 18 96/58 94 L 09/06/17 00:00 97.0 F L 66 19 93/57 96 09/05/17 20:00 96.3 F L 71 20 90/50 97 09/05/17 19:05 97.8 F 09/05/17 17:17 84 20 09/05/17 17:16 84 20 93/50 96 09/05/17 16:34 99 F 95 20 114/60 96 09/05/17 15:38 100.4 F H 98 20 113/62 95 09/05/17 14:03 101.5 F H 98 24 157/85 87 L Intake and Output 09/05/17 09/06/17 09/06/17 22:59 06:59 14:59 Intake Total 780 100 0 Balance 780 100 0 Intake: Oral 780 100 0 Other: Voiding Method Toilet Toilet Toilet # Voids 1 Weight 55 kg PHYSICAL EXAMINATION: HEENT: Head is atraumatic, normocephalic. Pupils equal, round. Neck is supple. There is no elevated jugular venous pressure. HEART EXAMINATION: Heart sounds regular, S1 and S2 with a holosystolic murmur. CHEST EXAMINATION: Lungs are diminished bilaterally with scattered rhonchi throughout. No chest wall tenderness is noted on palpation or with deep breathing. ABDOMEN: Soft, nontender. Bowel sounds are heard. No organomegaly noted. EXTREMITIES: 2+ peripheral pulses with no evidence of peripheral edema and no calf tenderness noted. NEUROLOGIC patient is awake, alert and oriented x3. . Results 09/06/17 11:25 09/06/17 06:20 Cardiac Enzymes 09/05/17 09/05/17 09/05/17 Range/Units 14:10 14:10 19:35 AST 32 (14-36) U/L Troponin I 0.097 H* 3.940 H* (0.000-0.034) ng/mL 09/06/17 Range/Units 06:20 AST (14-36) U/L Troponin I 1.490 H* (0.000-0.034) ng/mL Coagulation 09/05/17 Range/Units 14:10 PT 10.1 (9.0-12.0) sec APTT 22.6 (22.0-30.0) sec Lipids 09/06/17 Range/Units 06:20 Triglycerides 38 (<150) mg/dL Cholesterol 146 (<200) mg/dL HDL Cholesterol 70 H (40-60) mg/dL CBC 09/05/17 09/06/17 Range/Units 14:10 06:20 WBC 5.8 9.0 (3.8-10.6) k/uL RBC 4.19 4.21 (3.80-5.40) m/uL Hgb 12.3 12.5 (11.4-16.0) gm/dL Hct 37.4 38.0 (34.0-46.0) % Plt Count 108 L 113 L (150-450) k/uL Comprehensive Metabolic Panel 09/05/17 09/06/17 Range/Units 14:10 06:20 Sodium 139 143 (137-145) mmol/L Potassium 4.6 4.5 (3.5-5.1) mmol/L Chloride 103 106 (98-107) mmol/L Carbon Dioxide 22 24 (22-30) mmol/L BUN 29 H 41 H (7-17) mg/dL Creatinine 1.04 1.21 H (0.52-1.04) mg/dL Glucose 192 H 125 H (74-99) mg/dL Calcium 8.7 8.7 (8.4-10.2) mg/dL AST 32 (14-36) U/L ALT 28 (9-52) U/L Alkaline Phosphatase 48 (38-126) U/L Total Protein 6.2 L (6.3-8.2) g/dL Albumin 3.8 (3.5-5.0) g/dL Current Medications Generic Name Dose Route Start Last Admin Trade Name Freq PRN Reason Stop Dose Admin Acetaminophen 650 mg 09/05/17 19:23 Tylenol Tab PO Q6HR PRN Fever and/ or Mild Pain Albuterol/Ipratropium 3 ml 09/05/17 17:17 Duoneb 0.5 Mg-3 Mg/3 Ml Soln INHALATION RT-Q2H PRN Shortness Of Breath Or Wheezing Artificial Tears 1 drops 09/05/17 21:55 Artificial Tear Drops BOTH EYES DAILY PRN Dry Eye(s) Aspirin 81 mg 09/06/17 09:00 09/06/17 07:35 Aspirin PO 81 mg DAILY YORDY Administration Atorvastatin Calcium 10 mg 09/05/17 21:00 09/05/17 20:37 Lipitor PO 10 mg HS YORDY Administration Benzonatate 100 mg 09/05/17 21:55 Tessalon Perles PO TID PRN Cough Budesonide/Formoterol Fumarate 2 puff 09/05/17 20:00 09/06/17 06:59 Symbicort 160-4.5 Mcg Inhaler INHALATION 2 puff RT-BID YORDY Administration Calcium Carbonate 1 each 09/05/17 22:00 09/06/17 06:48 Oscal 500+D PO 1 each TID-W/MEALS YORDY Administration Ceftriaxone Sodium 1,000 mg 09/06/17 15:00 Rocephin IVP 09/09/17 15:01 Q24H [facility] Citalopram Hydrobromide 10 mg 09/05/17 21:00 09/05/17 20:38 Celexa PO 10 mg HS YORDY Administration Heparin Sodium (Porcine) 5,000 unit 09/06/17 09:00 09/06/17 07:36 Heparin SQ 5,000 unit Q12HR [facility] Administration Azithromycin 500 mg/ Sodium 250 mls @ 125 mls/hr 09/06/17 12:00 Chloride IVPB DAILY@1200 [facility] Insulin Aspart 0 unit 09/05/17 21:00 09/06/17 05:59 Novolog SQ Not Given ACHS [facility] Protocol Loratadine 10 mg 09/06/17 09:00 09/06/17 07:35 Claritin PO 10 mg DAILY YORDY Administration Methylprednisolone Sodium Succinate 60 mg 09/05/17 18:00 09/06/17 06:48 Solu-Medrol IV 60 mg Q6HR YORDY Administration Miscellaneous Information 1 each 09/05/17 15:14 Pneumonia Protocol Utilized PO ONCE PRN Per Protocol Montelukast Sodium 10 mg 09/05/17 21:00 09/05/17 20:37 Singulair PO 10 mg HS YORDY Administration Multivitamins 1 each 09/06/17 07:30 09/06/17 06:48 Theragran PO 1 each BID-W/MEALS YORDY Administration Sodium Chloride 2 spray 09/06/17 09:00 Deep Sea NASAL BID YORDY Intake and Output 09/05/17 09/06/17 09/06/17 22:59 06:59 14:59 Intake Total 780 100 0 Balance 780 100 0 Intake: Oral 780 100 0 Other: Voiding Method Toilet Toilet Toilet # Voids 1 Weight 55 kg 09/06/17 06:20 09/06/17 06:20 Assessment and Plan Assessment: #1 Acute COPD exacerbation #2 shortness of breath with productive cough and fever, possible pneumonia #3 Non-STEMI, may be due to type 2 event in view of absence of chest discomfort #4 Moderate to severe MR Plan: From Cariology's perspective, we will start IV heparin, hydrate her and continue aggressive medical management. May consider cardiac catheterization once infectious process resolves. We will continue to follow the patient and provide further recommendations accordingly. MACHINE STU[employer] note has been reviewed, I agree with a documented findings and plan of care. Patient was seen and examined.
[2017-09-06] MEDS: cefTRIAXone IN SWFI 1,000 MG/10 ML SYRINGE IVP SCH (16:27)
[2017-09-06 16:49] LABS: Glucose,Whole Blood 124 mg/dL (75-99)
--- NOTE | 2017-09-06 18:01 | P.PN ---
Subjective Progress Note Date: 09/06/17 progress note being dictated for Dr. Sullivan. Interval history: This is an 82-year-old female admitted with acute COPD exacerbation, possible bilateral bronchopneumonia, acute non-STEMI, acute UTI and multiple other medical issues. Maintained on IV antibiotics, nebulized bronchodilators, steroids. Breathing improving with minimal sputum production. Evaluated by both pulmonary and cardiology with recommendations noted. Anticoagulated on heparin drip. Maximizing medical therapy as per cardiology with potential cardiac cath once pulmonary status improves. Echo reporting normal LV function, EF 50-55%, moderate to severe mitral regurgitation, moderate tricuspid regurgitation. Telemetry sinus rhythm Denies chest pain, palpitations or increasing shortness of breath. Urine culture pending. Afebrile. Objective - Vital Signs Vital signs: Vital Signs Temp 97.5 F L 09/06/17 12:00 Pulse 68 09/06/17 16:00 Resp 16 09/06/17 16:00 BP 112/64 09/06/17 12:00 Pulse Ox 95 09/06/17 12:00 Intake & Output 09/05/17 09/06/17 09/06/17 18:59 06:59 18:59 Intake Total 780 100 236 Output Total 0 Balance 780 100 236 Weight 54.431 kg 55 kg Intake: Oral 780 100 236 Output: Urine 0 Stool 0 Urine/Stool Mix 0 Other: Voiding Method Toilet Toilet # Voids 1 0 # Bowel Movements 0 - Exam PHYSICAL EXAM: VITAL SIGNS: As above GENERAL: He up in bed, no acute distress HEENT: Conjunctivae normal. eyes normal. Oral mucosa moist NECK: No JVD. No thyroid enlargement. No LNs CARDIOVASCULAR: S1, S2 muffled. Systolic murmur RESPIRATION: Breath sounds diminished in the bases. Scattered rhonchi, no crackles. Expiratory wheezing ABDOMEN: Soft, nontender . No guarding. no masses palpable. Bowel sounds heard. LEGS: No edema. no swelling PSYCHIATRY: Alert and oriented -3, mood and affect normal. NERVOUS SYSTEM: Cranial N 2-12 grossly normal. Moves all 4 limbs. Diffuse weakness No focal deficits. Skin: no ulcer no rash Joints: No active swelling. No inflammation. Lymphatic system. No LN neck axilla or groin. - Labs CBC & Chem 7: 09/06/17 11:25 09/06/17 06:20 Labs: Abnormal Lab Results - Last 24 Hours (Table) 09/05/17 09/05/17 09/06/17 Range/Units 19:35 20:34 05:31 Plt Count (150-450) k/uL Neutrophils # (1.3-7.7) k/uL Lymphocytes # (1.0-4.8) k/uL APTT (22.0-30.0) sec BUN (7-17) mg/dL Creatinine (0.52-1.04) mg/dL Glucose (74-99) mg/dL POC Glucose (mg/dL) 137 H 117 H (75-99) mg/dL Troponin I 3.940 H* (0.000-0.034) ng/mL HDL Cholesterol (40-60) mg/dL 09/06/17 09/06/17 09/06/17 Range/Units 06:20 06:20 06:20 Plt Count 113 L (150-450) k/uL Neutrophils # 8.3 H (1.3-7.7) k/uL Lymphocytes # 0.4 L (1.0-4.8) k/uL APTT (22.0-30.0) sec BUN 41 H (7-17) mg/dL Creatinine 1.21 H (0.52-1.04) mg/dL Glucose 125 H (74-99) mg/dL POC Glucose (mg/dL) (75-99) mg/dL Troponin I 1.490 H* (0.000-0.034) ng/mL HDL Cholesterol 70 H (40-60) mg/dL 09/06/17 09/06/17 09/06/17 Range/Units 11:25 11:48 16:45 Plt Count 125 L (150-450) k/uL Neutrophils # 9.0 H (1.3-7.7) k/uL Lymphocytes # 0.8 L (1.0-4.8) k/uL APTT 54.4 H (22.0-30.0) sec BUN (7-17) mg/dL Creatinine (0.52-1.04) mg/dL Glucose (74-99) mg/dL POC Glucose (mg/dL) 108 H (75-99) mg/dL Troponin I (0.000-0.034) ng/mL HDL Cholesterol (40-60) mg/dL 09/06/17 Range/Units 16:47 Plt Count (150-450) k/uL Neutrophils # (1.3-7.7) k/uL Lymphocytes # (1.0-4.8) k/uL APTT (22.0-30.0) sec BUN (7-17) mg/dL Creatinine (0.52-1.04) mg/dL Glucose (74-99) mg/dL POC Glucose (mg/dL) 124 H (75-99) mg/dL Troponin I (0.000-0.034) ng/mL HDL Cholesterol (40-60) mg/dL Microbiology - Last 24 Hours (Table) 09/05/17 14:10 Blood Culture - Preliminary Blood No Growth after 24 hours 09/05/17 15:13 Urine Culture - Preliminary Urine,Voided Assessment and Plan Assessment: Acute severe COPD exacerbation with possible bilateral bronchopneumonia acute non-STEMI acute UTI Thrombocytopenia Plan: Continue on current medication regime ,monitoring and symptomatic treatment. Maintain nebulized medical dilators, steroids, antibiotics, beta ben. Follow closely with both cardiology and pulmonary. Maximizing medical therapy currently until pulmonary status improves with cardiac catheterization at [facility]. The impression and plan of care has been dictated as directed. : I performed a history and examination of this patient, discussed the same with the dictator. I agree with the dictator's note ,documented as a scribe. Any additional findings or plans will be noted.
[2017-09-06] MEDS: METOPROLOL TARTRATE 12.5 MG TAB PO SCH (21:18)
[2017-09-06] MEDS: ATORVASTATIN 40 MG TAB PO SCH (21:18)
[2017-09-06] MEDS: CITALOPRAM HYDROBROMIDE 10 MG TAB PO SCH (21:19)
[2017-09-06] MEDS: MONTELUKAST 10 MG TAB PO SCH (21:19)
[2017-09-06 21:20] LABS: Glucose,Whole Blood 148 mg/dL (75-99)
[2017-09-07] MEDS: methylPREDNISolone SOD SUCCI 125 MG/2 ML VIAL IV SCH ×5 (00:11→22:45)
[2017-09-07 06:01] LABS: Glucose,Whole Blood 119 mg/dL (75-99)
[2017-09-07] MEDS: INSULIN ASPART 100 UNIT/ML 1 ML 10 ML VIAL SQ SCH ×4 (06:34→21:02)
[2017-09-07] MEDS: SODIUM CHLORIDE 0.9% 1,000 ML IV SCH (06:34)
[2017-09-07] MEDS: MULTIVITAMINS, THERA 1 EACH TAB PO SCH ×2 (06:38→17:04)
[2017-09-07] MEDS: CALCIUM CARB-VIT D 500MG-200UN 1 EACH TAB PO SCH ×3 (06:41→17:04)
[2017-09-07 07:31] LABS: Basophils % (A) 0 %; Eosinophils % (A) 0 %; HCT 35.2 % (34.0-46.0); HGB 11.8 gm/dL (11.4-16.0); Lymphocytes # (A) 0.8 k/uL (1.0-4.8); Lymphocytes % (A) 8 %; MCH 30.2 pg (25.0-35.0); MCHC 33.6 g/dL (31.0-37.0); Mean Platelet Volume 7.7; Monocytes # (A) 0.3 k/uL (0-1.0); Monocytes % (A) 3 %; Neutrophils # (A) 8.4 k/uL (1.3-7.7); Neutrophils % (A) 88 %; Platelet Count 135 k/uL (150-450); RBC 3.91 m/uL (3.80-5.40); WBC 9.5 k/uL (3.8-10.6)
[2017-09-07 07:33] LABS: Calcium 9.3 mg/dL (8.4-10.2); Potassium 4.5 mmol/L (3.5-5.1)
[2017-09-07] MEDS: ASPIRIN 81 MG PO SCH (08:18)
[2017-09-07] MEDS: SYMBICORT 160-4.5 MCG INHALER INHALATION SCH ×2 (08:19→19:41)
[2017-09-07] MEDS: LORATADINE 10 MG TAB PO SCH (08:19)
[2017-09-07] MEDS: SODIUM CHLORIDE 0.65% NASAL SPRAY 44 ML BTL NASAL SCH ×2 (08:19→21:02)
[2017-09-07] MEDS: METOPROLOL TARTRATE 12.5 MG TAB PO SCH (08:19)
[2017-09-07 11:43] LABS: Glucose,Whole Blood 100 mg/dL (75-99)
[2017-09-07] MEDS: AZITHROMYCIN 500 MG TAB PO SCH (11:50)
[2017-09-07] MEDS: HEPARIN SOD,PORK IN 0.45% NACL 25,000 UNIT in 0.45% NACL 1 500ML.BAG IV SCH (12:03)
--- NOTE | 2017-09-07 12:12 | PN ---
PROGRESS NOTE Mrs. Romero is an 82-year-old female with a history of severe chronic obstructive lung disease who has been seen by Dr. Swanson in the past, has undergone cardiac catheterization, who presented with symptoms of upper respiratory infection with fever. She is feeling better this morning. Her breathing is better. She has coughed up some yellowish sputum. She denies any dizziness or palpitation. She denies any nausea. She has no chest discomfort. She had an echocardiogram that showed an ejection fraction of 50% to 55% with moderate to severe mitral and moderate tricuspid regurgitation. She continues to be at this time on aspirin once a day, Lipitor 40 mg daily, ceftriaxone, IV heparin, metoprolol tartrate 12.5 mg twice a day. PHYSICAL EXAMINATION: Blood pressure 112/60 with a heart rate in the 60s. LUNGS: A few crackles at the bases with decreased air exchange. HEART: Regular rate and rhythm. S1, S2. No S3, with a holosystolic murmur in the apex. ABDOMEN: Soft, nontender. EXTREMITIES: No edema. LAB DATA: Lab data revealed BUN and creatinine of 15 and 1.1. Potassium 4.5, hemoglobin of 11.8. IMPRESSION: 1. Respiratory infection in a patient with known history of severe chronic obstructive lung disease. 2. Non [id number] myocardial infarction. 3. Hyperlipidemia. 4. Renal failure. RECOMMENDATION: I will stop her IV heparin at this time. I will increase the dose of her beta ben. Will follow her renal function. The patient would require coronary angiography, but the timing of it depends on her lung status and renal function. MMODL / IJN: [id number] /
--- NOTE | 2017-09-07 15:13 | P.PN ---
Subjective Progress Note Date: 09/07/17 A pleasant 83-year-old female patient with known history of advanced COPD who has been followed up in our office by Dr. Guadalupe. She is also known to have hyperlipidemia and ALLERGIC rhinitis and acid reflux. The patient has degenerative arthritis also. The patient came into the emergency department having physical therapy breathing. Note that on outpatient basis she has been maintained on a combination of Spiriva and Symbicort and her baseline FEV1 based on a spirometer this was done in 2017 showed an FEV1 of 0.84 L which is 41 % of predicted with some limited reversibility post-bronchodilation. The patient came in today to the emergency department and the patient complained of increased difficulty breathing without any significant sputum production. She was getting progressively more weak. She did not have any fever. She has no chest pain. No palpitations. No nausea vomiting or diarrhea. Chest x-ray shows hyperinflation COPD without any acute abnormalities. She was admitted to the hospital for further treatment. She is febrile with a temperature of 11.5 max and her subsequent temperatures 100.4. Her pulse ox was 87% on room air and currently she is on 2 L of oxygen nasal cannula bringing her pulse ox up to 95%. First set of troponin was at 0.097. Lactic acid level was at 1.4. The urinalysis was also abnormal with evidence of pyuria with 42 WBCs. Influenza screen was negative. EKG showed a normal sinus rhythm. There is some nonspecific T-wave inversions and depression and the ST segment in the lateral leads. On today's evaluation, the patient is less short of breath compared to yesterday. No cervical respiratory distress. No chest pain. She ruled in for an acute non-ST segment elevation myocardial infarction and the patient will be having a cardiac catheterization later stage. Her fever has defervesced and the patient has remained afebrile for now. No dysuria frequency or urgency. Urine culture is still pending for now. Chest x-ray as mentioned was negative and the patient's chest x-ray showed no evidence of any acute pneumonia. Urine analysis is also was abnormal. Urine cultures of been negative and the patient is on a combination of Rocephin and Zithromax. The echocardiogram showed a normal ejection fraction with 50-50% and the patient has moderate severe mitral regurgitation, moderate TR, right ventricular systolic pressure of around 43 mmHg. No pericardial effusion. On 09/07/2017, I'm seeing this patient for a follow-up. The patient is less short of breath. She is improving in regards to her COPD exacerbation and she is less bronchospastic and wheezy. She remains on a combination of DuoNeb nebulized treatments and IV Solu-Medrol. She is also on a combination of Rocephin and Zithromax and she is afebrile for now. The urine culture has been negative. The blood cultures been negative. Has no significant leukocytosis. The patient had some derangements in her renal function for that reason the cardiac catheterization was postponed. Currently her creatinine is at 1.1 and the patient is possibly getting a cardiac catheterization for an acute non- STEMI within next 24-48 hours. Cardiology is on the case. The patient is free of any chest pain. The echocardiogram shows moderate to severe MR, moderate TR , mild pulmonary hypertension, presented LV function with an ejection fraction of 50-55%. No fever since admission. Her fever has defervesced. Objective - Vital Signs Vital signs: Vital Signs Temp 97.3 F L 09/07/17 11:40 Pulse 60 09/07/17 11:40 Resp 18 09/07/17 11:40 BP 143/76 09/07/17 11:40 Pulse Ox 93 L 09/07/17 11:40 Intake & Output 09/06/17 09/07/17 09/07/17 18:59 06:59 18:59 Intake Total 476 240 Output Total 0 0 Balance 476 0 240 Weight 53 kg Intake: Oral 476 240 Output: Urine 0 Stool 0 0 Urine/Stool Mix 0 Other: Voiding Method Toilet Toilet # Voids 0 1 # Bowel Movements 0 - Exam Physical exam revealed a 82-year-old female in no distress Head exam was generally normal. There was no scleral icterus or corneal arcus. Mucous membranes were moist. HEENT: Anicteric sclerae, pink and moist conjunctivae. Extraocular movements intact, pupils are reactive to light they are round and equal. External inspection of ears and nose showed normal mucosa. Oral mucosa, soft and hard palate tongue and posterior pharynx are intact. Neck: Supple no neck masses, no JVD, no thyroid enlargement, no adenopathy. Lungs: Symmetrical expansion, Diminished breath sounds at the bases no crackles or rhonchi and there is bilateral wheezes CVS: Regular rate and rhythm, normal S1 and S2, no gallops, no murmur, no rubs. Abdomen: Soft, nontender, no megaly, no rebound, no guarding, positive bowel sounds. Extremities: No clubbing, no edema, no cyanosis, 2+ pulses in upper and lower extremities.Laceration to right lower extremity covered with sterile dressing, not fully visualized. Musculoskeletal: Muscle strength and tone normal. Neurologic: Alert and oriented 3, normal affect, no focal neurologic deficits. Examination of the skin revealed no evidence of significant rashes, suspicious appearing nevi or other concerning lesions. - Labs CBC & Chem 7: 09/07/17 06:31 09/07/17 06:31 Labs: Abnormal Lab Results - Last 24 Hours (Table) 09/06/17 09/06/17 09/06/17 Range/Units 16:45 16:47 21:08 Plt Count (150-450) k/uL Neutrophils # (1.3-7.7) k/uL Lymphocytes # (1.0-4.8) k/uL APTT 54.4 H (22.0-30.0) sec BUN (7-17) mg/dL Creatinine (0.52-1.04) mg/dL Glucose (74-99) mg/dL POC Glucose (mg/dL) 124 H 148 H (75-99) mg/dL 09/07/17 09/07/17 09/07/17 Range/Units 05:59 06:31 06:31 Plt Count 135 L (150-450) k/uL Neutrophils # 8.4 H (1.3-7.7) k/uL Lymphocytes # 0.8 L (1.0-4.8) k/uL APTT (22.0-30.0) sec BUN 50 H (7-17) mg/dL Creatinine 1.11 H (0.52-1.04) mg/dL Glucose 123 H (74-99) mg/dL POC Glucose (mg/dL) 119 H (75-99) mg/dL 09/07/17 09/07/17 Range/Units 06:31 11:41 Plt Count (150-450) k/uL Neutrophils # (1.3-7.7) k/uL Lymphocytes # (1.0-4.8) k/uL APTT 37.7 H (22.0-30.0) sec BUN (7-17) mg/dL Creatinine (0.52-1.04) mg/dL Glucose (74-99) mg/dL POC Glucose (mg/dL) 100 H (75-99) mg/dL Microbiology - Last 24 Hours (Table) 09/05/17 15:13 Urine Culture - Final Urine,Voided 09/05/17 14:10 Blood Culture - Preliminary Blood No Growth after 24 hours Assessment and Plan Plan: Assessment 1 acute COPD exacerbation with secondary shortness of breath. Influenza screen is negative. Clinically improving with a combination of bronchodilators and steroids and antibiotics. 2 severe COPD with a baseline FEV1 of 40% of predicted maintain and accommodation Spiriva and Symbicort on outpatient basis 3 fever currently under investigation. Rule out underlying pneumonia. Rule out secondary to an urine tract infection. The patient has an abnormal urinalysis. 4 acute non-ST segment elevation myocardial infarction. Will need a cardiac catheterization later stage 5 hyperlipidemia 6 ALLERGIC rhinitis 7 fibrocystic disease of the breast 8 history of distal individual stricture with Schatzki's ring, status post dilatation Plan Continue same treatment for another 24 hours. The patient is afebrile. Still on same antibiotic coverage. Cultures been negative. Continue Spiriva and Symbicort. Will need a cardiac catheterization once renal function is more stable.
[2017-09-07] MEDS: cefTRIAXone IN SWFI 1,000 MG/10 ML SYRINGE IVP SCH (15:57)
[2017-09-07 16:40] LABS: Glucose,Whole Blood 143 mg/dL (75-99)
--- NOTE | 2017-09-07 17:48 | PN ---
PROGRESS NOTE DATE OF SERVICE: 09/07/2017 This 82-year-old woman admitted with COPD and possible bilateral bronchopneumonia, also suspected to have acute non ST elevation myocardial infarction or type 2 myocardial infarction. Cardiology is following the patient closely. Cardiology is awaiting a pulmonary status evaluation at this time. Symptomatically the patient is improving. No chest pain. No palpitations. No fever. PHYSICAL EXAM: Alert and oriented x3. Pulse 60, blood pressure 143/77, respiration 18, temperature 97.2, pulse ox 98% room air. HEENT: Conjunctivae normal. Oral mucosa moist. NECK: No jugular venous distention. No carotid bruit. No lymph node enlargement. CARDIOVASCULAR: S1, S2. No S3, no S4. RESPIRATORY: Breath sounds diminished in the bases. A few scattered rhonchi and crackles. ABDOMEN: Soft, nontender. LEGS: No edema. NERVOUS SYSTEM: No focal deficits. LABS: White count 9, hemoglobin 9.8, platelets 130. Creatinine is 1.11. ASSESSMENT: 1. Chronic obstructive pulmonary disease acute exacerbation with bilateral bronchopneumonia. 2. Possible acute non ST elevation myocardial infarction. 3. Acute urinary tract infection. 4. Thrombocytopenia. RECOMMENDATIONS AND DISCUSSION I recommend to continue current management and symptomatic treatment. Otherwise at this time I recommend bronchodilators. Continue with antibiotics. Closely follow with Cardiology and Pulmonology. Possible cardiac catheterization. Guarded prognosis. Further recommendations to follow. MMODL / IJN: [id number] /
[2017-09-07 20:48] LABS: Glucose,Whole Blood 128 mg/dL (75-99)
[2017-09-07] MEDS: ATORVASTATIN 40 MG TAB PO SCH (21:02)
[2017-09-07] MEDS: MONTELUKAST 10 MG TAB PO SCH (21:02)
[2017-09-07] MEDS: CITALOPRAM HYDROBROMIDE 10 MG TAB PO SCH (21:02)
[2017-09-07] MEDS: METOPROLOL TARTRATE 25 MG TAB PO SCH (21:02)
[2017-09-08 06:12] LABS: Basophils % (A) 0 %; Eosinophils % (A) 0 %; HCT 35.6 % (34.0-46.0); HGB 11.9 gm/dL (11.4-16.0); Lymphocytes # (A) 0.6 k/uL (1.0-4.8); Lymphocytes % (A) 9 %; MCH 30.1 pg (25.0-35.0); MCHC 33.4 g/dL (31.0-37.0); MCV 90.3 fL (80.0-100.0); Mean Platelet Volume 7.3; Monocytes # (A) 0.2 k/uL (0-1.0); Monocytes % (A) 3 %; Neutrophils # (A) 6.4 k/uL (1.3-7.7); Neutrophils % (A) 87 %; Platelet Count 151 k/uL (150-450); RBC 3.94 m/uL (3.80-5.40); RDW 12.9 % (11.5-15.5); WBC 7.4 k/uL (3.8-10.6)
[2017-09-08 06:18] LABS: Glucose,Whole Blood 123 mg/dL (75-99)
[2017-09-08] MEDS: SODIUM CHLORIDE 0.9% 1,000 ML IV SCH ×2 (06:30→09:36)
[2017-09-08] MEDS: INSULIN ASPART 100 UNIT/ML 1 ML 10 ML VIAL SQ SCH ×4 (06:31→21:14)
[2017-09-08 06:35] LABS: Calcium 9.2 mg/dL (8.4-10.2); Potassium 4.7 mmol/L (3.5-5.1)
[2017-09-08] MEDS: PANTOPRAZOLE 40 MG TABLET PO SCH (06:35)
[2017-09-08] MEDS: CALCIUM CARB-VIT D 500MG-200UN 1 EACH TAB PO SCH ×3 (06:35→21:03)
[2017-09-08] MEDS: MULTIVITAMINS, THERA 1 EACH TAB PO SCH ×2 (06:35→17:25)
[2017-09-08] MEDS: methylPREDNISolone SOD SUCCI 125 MG/2 ML VIAL IV SCH ×2 (06:35→12:23)
[2017-09-08] MEDS: ASPIRIN 81 MG PO SCH (08:02)
[2017-09-08] MEDS: SODIUM CHLORIDE 0.65% NASAL SPRAY 44 ML BTL NASAL SCH ×2 (08:02→20:59)
[2017-09-08] MEDS: METOPROLOL TARTRATE 25 MG TAB PO SCH ×2 (08:02→21:02)
[2017-09-08] MEDS: LORATADINE 10 MG TAB PO SCH (08:02)
[2017-09-08] MEDS: SYMBICORT 160-4.5 MCG INHALER INHALATION SCH ×2 (08:55→20:01)
[2017-09-08 11:36] LABS: Glucose,Whole Blood 133 mg/dL (75-99)
[2017-09-08] MEDS: AZITHROMYCIN 500 MG TAB PO SCH (12:23)
--- NOTE | 2017-09-08 12:30 | P.PN ---
Subjective Progress Note Date: 09/08/17 A pleasant 83-year-old female patient with known history of advanced COPD who has been followed up in our office by Dr. Guadalupe. She is also known to have hyperlipidemia and ALLERGIC rhinitis and acid reflux. The patient has degenerative arthritis also. The patient came into the emergency department having physical therapy breathing. Note that on outpatient basis she has been maintained on a combination of Spiriva and Symbicort and her baseline FEV1 based on a spirometer this was done in 2017 showed an FEV1 of 0.84 L which is 41 % of predicted with some limited reversibility post-bronchodilation. The patient came in today to the emergency department and the patient complained of increased difficulty breathing without any significant sputum production. She was getting progressively more weak. She did not have any fever. She has no chest pain. No palpitations. No nausea vomiting or diarrhea. Chest x-ray shows hyperinflation COPD without any acute abnormalities. She was admitted to the hospital for further treatment. She is febrile with a temperature of 11.5 max and her subsequent temperatures 100.4. Her pulse ox was 87% on room air and currently she is on 2 L of oxygen nasal cannula bringing her pulse ox up to 95%. First set of troponin was at 0.097. Lactic acid level was at 1.4. The urinalysis was also abnormal with evidence of pyuria with 42 WBCs. Influenza screen was negative. EKG showed a normal sinus rhythm. There is some nonspecific T-wave inversions and depression and the ST segment in the lateral leads. On today's evaluation, the patient is less short of breath compared to yesterday. No cervical respiratory distress. No chest pain. She ruled in for an acute non-ST segment elevation myocardial infarction and the patient will be having a cardiac catheterization later stage. Her fever has defervesced and the patient has remained afebrile for now. No dysuria frequency or urgency. Urine culture is still pending for now. Chest x-ray as mentioned was negative and the patient's chest x-ray showed no evidence of any acute pneumonia. Urine analysis is also was abnormal. Urine cultures of been negative and the patient is on a combination of Rocephin and Zithromax. The echocardiogram showed a normal ejection fraction with 50-50% and the patient has moderate severe mitral regurgitation, moderate TR, right ventricular systolic pressure of around 43 mmHg. No pericardial effusion. On 09/07/2017, I'm seeing this patient for a follow-up. The patient is less short of breath. She is improving in regards to her COPD exacerbation and she is less bronchospastic and wheezy. She remains on a combination of DuoNeb nebulized treatments and IV Solu-Medrol. She is also on a combination of Rocephin and Zithromax and she is afebrile for now. The urine culture has been negative. The blood cultures been negative. Has no significant leukocytosis. The patient had some derangements in her renal function for that reason the cardiac catheterization was postponed. Currently her creatinine is at 1.1 and the patient is possibly getting a cardiac catheterization for an acute non- STEMI within next 24-48 hours. Cardiology is on the case. The patient is free of any chest pain. The echocardiogram shows moderate to severe MR, moderate TR , mild pulmonary hypertension, presented LV function with an ejection fraction of 50-55%. No fever since admission. Her fever has defervesced. On 09/08/2017, the patient is still being treated for an acute COPD exacerbation. She is slowly improving. She is less bronchus spastic and wheezy compared to yesterday. She has afebrile. She is covered with accommodation Rocephin and Zithromax. The plan is to proceed with cardiac catheterization knowing that the patient sustained an acute non-ST segment elevation myocardial infarction during this current hospitalization. She is free of any chest pain. No angina. She has preserved LV function on her echo. No nausea. No vomiting. No altered mentation. No fever or chills. The sepsis workup was negative and the cultures of been negative and the patient did not spike any temperature over the past 24-48 hours. She is resting comfortably in bed. Final recommendations regarding cardiac catheterization will be done with the next 24-48 hours. Objective - Vital Signs Vital signs: Vital Signs Temp 97.3 F L 09/08/17 11:05 Pulse 53 L 09/08/17 11:05 Resp 16 09/08/17 11:05 BP 123/71 09/08/17 11:05 Pulse Ox 96 09/08/17 11:05 Intake & Output 09/07/17 09/08/17 09/08/17 18:59 06:59 18:59 Intake Total 820 400 Output Total 0 Balance 820 0 400 Weight 53 kg Intake: IV 400 Sodium Chloride 0.9% 1, 400 000 ml @ 50 mls/hr IV . Q20H YORDY Rx#:[id number] Intake, IV Titration 100 Amount Sodium Chloride 0.9% 1, 100 000 ml @ 50 mls/hr IV . Q20H [facility] Rx#:[id number] Oral 720 Output: Stool 0 Other: Voiding Method Toilet Toilet # Voids 1 - Exam Physical exam revealed a 82-year-old female in no distress Head exam was generally normal. There was no scleral icterus or corneal arcus. Mucous membranes were moist. HEENT: Anicteric sclerae, pink and moist conjunctivae. Extraocular movements intact, pupils are reactive to light they are round and equal. External inspection of ears and nose showed normal mucosa. Oral mucosa, soft and hard palate tongue and posterior pharynx are intact. Neck: Supple no neck masses, no JVD, no thyroid enlargement, no adenopathy. Lungs: Symmetrical expansion, Diminished breath sounds at the bases no crackles or rhonchi and there is bilateral wheezes CVS: Regular rate and rhythm, normal S1 and S2, no gallops, no murmur, no rubs. Abdomen: Soft, nontender, no megaly, no rebound, no guarding, positive bowel sounds. Extremities: No clubbing, no edema, no cyanosis, 2+ pulses in upper and lower extremities.Laceration to right lower extremity covered with sterile dressing, not fully visualized. Musculoskeletal: Muscle strength and tone normal. Neurologic: Alert and oriented 3, normal affect, no focal neurologic deficits. Examination of the skin revealed no evidence of significant rashes, suspicious appearing nevi or other concerning lesions. - Labs CBC & Chem 7: 09/08/17 05:50 09/08/17 05:50 Labs: Abnormal Lab Results - Last 24 Hours (Table) 09/07/17 09/07/17 09/08/17 Range/Units 16:39 20:47 05:50 Lymphocytes # 0.6 L (1.0-4.8) k/uL BUN (7-17) mg/dL Glucose (74-99) mg/dL POC Glucose (mg/dL) 143 H 128 H (75-99) mg/dL 09/08/17 09/08/17 09/08/17 Range/Units 05:50 06:16 11:29 Lymphocytes # (1.0-4.8) k/uL BUN 51 H (7-17) mg/dL Glucose 134 H (74-99) mg/dL POC Glucose (mg/dL) 123 H 133 H (75-99) mg/dL Microbiology - Last 24 Hours (Table) 09/05/17 14:10 Blood Culture - Preliminary Blood No Growth after 48 hours Assessment and Plan Plan: Assessment 1 acute COPD exacerbation with secondary shortness of breath. Influenza screen is negative. Clinically improving with a combination of bronchodilators and steroids and antibiotics. The patient is not having any significant respiratory distress today. She is laying comfortably in bed. She was taken off the IV Solu-Medrol and started on a prednisone burst taper. She is also on a combination of Rocephin and Zithromax pH is afebrile for now. 2 severe COPD with a baseline FEV1 of 40% of predicted maintain and accommodation Spiriva and Symbicort on outpatient basis 3 fever currently under investigation. Rule out underlying pneumonia. Rule out secondary to an urine tract infection. The patient has an abnormal urinalysis. The final urine culture and the blood culture came back negative and the patient is currently afebrile. 4 acute non-ST segment elevation myocardial infarction. Will need a cardiac catheterization later stage 5 hyperlipidemia 6 ALLERGIC rhinitis 7 fibrocystic disease of the breast 8 history of distal individual stricture with Schatzki's ring, status post dilatation Plan Continue same antibiotic coverage. This continued IV Solu Medrol and put the patient on prednisone burst taper. Asked the patient to ablate in the hallway. Continue bronchodilators. Cardiac catheterization with the next 24-48 hours upon the request of cardiology. We'll continue to follow.
--- NOTE | 2017-09-08 12:43 | PN ---
PROGRESS NOTE Mrs. Romero is an 82-year-old female who presented with symptoms of pneumonia. She had evidence of troponin elevation. She is feeling better today, coughing and producing sputum. She denies any chest pain. She denies any dizziness or palpitation. She denies any nausea. She is ambulating without difficulty. She continues to be on aspirin once a day, Lipitor 40 mg daily, metoprolol tartrate 25 mg twice a day. PHYSICAL EXAMINATION: Blood pressure 123/70 with a heart in the 50s. Lungs no wheezes. HEART: Regular rate and rhythm S1, S2. No S3. No rub. ABDOMEN: Soft, nontender. EXTREMITIES: No edema. LAB DATA: Revealed BUN and creatinine 51 and 1.0, potassium 4.7, hemoglobin of 11.9. IMPRESSION: 1. Pneumonia, improving. 2. [id number] elevation myocardial infarction. 3. Elevated BUN. RECOMMENDATION: From the cardiac standpoint, we will continue present therapy. If she remains stable in the next 24 hours, then I will proceed with coronary angiography, probably on Saturday to assess her status and guide her treatment. MMODL / IJN: [id number] /
[2017-09-08 16:49] LABS: Glucose,Whole Blood 119 mg/dL (75-99)
[2017-09-08] MEDS: cefTRIAXone IN SWFI 1,000 MG/10 ML SYRINGE IVP SCH (17:41)
--- NOTE | 2017-09-08 17:58 | PN ---
PROGRESS NOTE DATE OF SERVICE: 09/08/2017 This 82-year-old woman was admitted with COPD and bilateral bronchopneumonia also had a possible acute non-ST segment elevation myocardial infarction. The patient being closely monitored. No chest pain. No palpitations. No fever. EXAM: Alert and oriented times three. Pulse 53, blood pressure 123/71, respiratory rate 16, temperature 97.2, pulse ox 98% on room air. HEENT conjunctivae normal. Neck: No jugular venous distention. Cardiovascular: S1, S2 muffled. Respiratory: Breath sounds diminished in the bases. A few scattered rhonchi. No crackles. Abdomen is soft, nontender. No mass palpable. Legs no edema. Central nervous system: No focal deficits. LAB STUDIES: Glucose 131, 123, 151. ASSESSMENT: 1. Chronic obstructive pulmonary disease acute exacerbation with acute bibasilar bronchopneumonia. 2. Possible acute non ST-segment elevation myocardial infarction. 3. Acute urinary tract infection. 4. Thrombocytopenia, improved. RECOMMENDATIONS AND DISCUSSION: Recommend to continue current medications, management and symptomatic treatment. Otherwise at this time I recommend continue the current medications including antibiotics, possible cardiac with Cardiology. Guarded prognosis. Further recommendations to follow. MMODL / IJN: [id number] / MTDD
[2017-09-08] MEDS: ATORVASTATIN 40 MG TAB PO SCH (20:59)
[2017-09-08] MEDS: MONTELUKAST 10 MG TAB PO SCH (21:00)
[2017-09-08] MEDS: CITALOPRAM HYDROBROMIDE 10 MG TAB PO SCH (21:00)
[2017-09-08 21:12] LABS: Glucose,Whole Blood 151 mg/dL (75-99)
[2017-09-09 06:26] LABS: Glucose,Whole Blood 100 mg/dL (75-99)
[2017-09-09 06:37] LABS: Basophils % (A) 0 %; Eosinophils % (A) 0 %; HCT 34.1 % (34.0-46.0); HGB 11.3 gm/dL (11.4-16.0); Lymphocytes # (A) 0.6 k/uL (1.0-4.8); Lymphocytes % (A) 9 %; MCHC 33.2 g/dL (31.0-37.0); MCV 90.2 fL (80.0-100.0); Mean Platelet Volume 7.4; Monocytes # (A) 0.3 k/uL (0-1.0); Monocytes % (A) 5 %; Neutrophils # (A) 5.5 k/uL (1.3-7.7); Neutrophils % (A) 84 %; Platelet Count 152 k/uL (150-450); RBC 3.78 m/uL (3.80-5.40); RDW 12.8 % (11.5-15.5); WBC 6.5 k/uL (3.8-10.6)
[2017-09-09] MEDS: INSULIN ASPART 100 UNIT/ML 1 ML 10 ML VIAL SQ SCH ×4 (06:48→21:11)
[2017-09-09 06:49] LABS: Calcium 8.8 mg/dL (8.4-10.2); Potassium 4.5 mmol/L (3.5-5.1)
[2017-09-09] MEDS: CALCIUM CARB-VIT D 500MG-200UN 1 EACH TAB PO SCH ×3 (06:52→17:58)
[2017-09-09] MEDS: PANTOPRAZOLE 40 MG TABLET PO SCH (06:52)
[2017-09-09] MEDS: MULTIVITAMINS, THERA 1 EACH TAB PO SCH ×2 (06:52→17:57)
[2017-09-09] MEDS: SYMBICORT 160-4.5 MCG INHALER INHALATION SCH ×2 (08:36→20:47)
[2017-09-09] MEDS: SODIUM CHLORIDE 0.65% NASAL SPRAY 44 ML BTL NASAL SCH ×2 (10:14→20:34)
[2017-09-09] MEDS: predniSONE 20 MG TAB PO SCH (10:15)
[2017-09-09] MEDS: ASPIRIN 81 MG PO SCH (10:15)
[2017-09-09] MEDS: LORATADINE 10 MG TAB PO SCH (10:15)
[2017-09-09] MEDS: METOPROLOL TARTRATE 25 MG TAB PO SCH ×2 (10:15→20:33)
[2017-09-09] MEDS ORDERED: ASPIRIN 325 MG TAB PO STA (11:50)
[2017-09-09] MEDS ORDERED: ATORVASTATIN 80 MG TAB PO STA (11:50)
[2017-09-09] MEDS ORDERED: SODIUM CHLORIDE 0.9% 1,000 ML in EMPTY BAG 1 BAG IV ONE (11:50)
[2017-09-09] MEDS ORDERED: NITROGLYCERIN SL TABS 0.4 MG TAB SUBLINGUAL PRN (11:50)
[2017-09-09] MEDS ORDERED: ALPRAZolam 0.5 MG TAB PO PRN (11:50)
[2017-09-09] MEDS ORDERED: ALPRAZolam 0.25 MG TAB PO PRN (11:50)
[2017-09-09 11:54] LABS: Glucose,Whole Blood 81 mg/dL (75-99)
[2017-09-09] MEDS: AZITHROMYCIN 500 MG TAB PO SCH (13:01)
--- NOTE | 2017-09-09 14:48 | P.PN ---
Subjective Progress Note Date: 09/09/17 This is an 82-year-old female who presented to the hospital with symptoms of productive cough, was diagnosed with pneumonia. She was also noted to have evidence of troponin elevation. Patient was seen and examined this morning, is overall feeling significantly better, continues to have a cough but much less. Afebrile. An echocardiogram with Doppler study was performed which revealed an ejection fraction of 50-55%. Moderate severe mitral regurgitation and moderate tricuspid regurg also noted. Blood pressure 112/60, heart rate in the 50s, temperature 90.7. Hemoglobin 11.3, platelet count 152. Sodium 143, potassium 4.5, BUN 46, creatinine 0.8. Objective - Vital Signs Vital signs: Vital Signs Temp 97.0 F L 09/09/17 08:00 Pulse 53 L 09/09/17 12:00 Resp 14 09/09/17 12:00 BP 113/65 09/09/17 12:00 Pulse Ox 94 L 09/09/17 12:00 Intake & Output 09/08/17 09/09/17 09/09/17 18:59 06:59 18:59 Intake Total 1000 950 480 Output Total 0 0 Balance 1000 950 480 Weight 53 kg Intake: IV 400 150 Sodium Chloride 0.9% 1, 400 150 000 ml @ 50 mls/hr IV . Q20H [facility] Rx#:[id number] Intake, IV Titration 600 Amount Sodium Chloride 0.9% 1, 600 000 ml @ 50 mls/hr IV . Q20H [facility] Rx#:[id number] Oral 600 200 480 Output: Urine 0 Stool 0 0 Other: Voiding Method Toilet Toilet Toilet # Voids 1 1 - Exam PHYSICAL EXAMINATION: HEENT: [Head is atraumatic, normocephalic. Pupils equal, round. Neck is supple. There is no elevated jugular venous pressure.] HEART EXAMINATION: [Heart S1, S2 normal. No murmur or gallop heard.] CHEST EXAMINATION:[ Lungs are clear to auscultation and precussion. No chest wall tenderness is noted on palpation or with deep breathing.] ABDOMEN: [ Soft, nontender. Bowel sounds are heard. No organomegaly noted]. EXTREMITIES:[ 2+ peripheral pulses with no evidence of peripheral edema and no calf tenderness noted]. NEUROLOGIC [patient is awake, alert and oriented -3.] . - Labs CBC & Chem 7: 04/23/18 05:55 09/09/17 05:55 Labs: Abnormal Lab Results - Last 24 Hours (Table) 09/08/17 09/08/17 09/09/17 Range/Units 16:31 21:08 05:55 RBC 3.78 L (3.80-5.40) m/uL Hgb 11.3 L (11.4-16.0) gm/dL Lymphocytes # 0.6 L (1.0-4.8) k/uL Chloride (98-107) mmol/L BUN (7-17) mg/dL Glucose (74-99) mg/dL POC Glucose (mg/dL) 119 H 151 H (75-99) mg/dL 09/09/17 09/09/17 Range/Units 05:55 06:25 RBC (3.80-5.40) m/uL Hgb (11.4-16.0) gm/dL Lymphocytes # (1.0-4.8) k/uL Chloride 110 H (98-107) mmol/L BUN 47 H (7-17) mg/dL Glucose 107 H (74-99) mg/dL POC Glucose (mg/dL) 100 H (75-99) mg/dL Microbiology - Last 24 Hours (Table) 09/05/17 14:10 Blood Culture - Preliminary Blood No Growth after 72 hours Assessment and Plan Plan: Assessment and plan #1 pneumonia, improving #2 non-ST elevation myocardial infarction Plan Scheduled to undergo cardiac catheterization tomorrow Dr. Chandler. The risks and the benefits were explained to her in detail and she is willing to proceed. DNP note has been reviewed, I agree with a documented findings and plan of care. Patient was seen and examined.
--- NOTE | 2017-09-09 15:00 | P.PN ---
Subjective Progress Note Date: 09/09/17 Principal diagnosis: Acute exacerbation of COPD and acute non-ST elevation myocardial infarction A pleasant 83-year-old female patient with known history of advanced COPD who has been followed up in our office by Dr. Guadalupe. She is also known to have hyperlipidemia and ALLERGIC rhinitis and acid reflux. The patient has degenerative arthritis also. The patient came into the emergency department having physical therapy breathing. Note that on outpatient basis she has been maintained on a combination of Spiriva and Symbicort and her baseline FEV1 based on a spirometer this was done in 2017 showed an FEV1 of 0.84 L which is 41 % of predicted with some limited reversibility post-bronchodilation. The patient came in today to the emergency department and the patient complained of increased difficulty breathing without any significant sputum production. She was getting progressively more weak. She did not have any fever. She has no chest pain. No palpitations. No nausea vomiting or diarrhea. Chest x-ray shows hyperinflation COPD without any acute abnormalities. She was admitted to the hospital for further treatment. She is febrile with a temperature of 11.5 max and her subsequent temperatures 100.4. Her pulse ox was 87% on room air and currently she is on 2 L of oxygen nasal cannula bringing her pulse ox up to 95%. First set of troponin was at 0.097. Lactic acid level was at 1.4. The urinalysis was also abnormal with evidence of pyuria with 42 WBCs. Influenza screen was negative. EKG showed a normal sinus rhythm. There is some nonspecific T-wave inversions and depression and the ST segment in the lateral leads. On today's evaluation, the patient is less short of breath compared to yesterday. No cervical respiratory distress. No chest pain. She ruled in for an acute non-ST segment elevation myocardial infarction and the patient will be having a cardiac catheterization later stage. Her fever has defervesced and the patient has remained afebrile for now. No dysuria frequency or urgency. Urine culture is still pending for now. Chest x-ray as mentioned was negative and the patient's chest x-ray showed no evidence of any acute pneumonia. Urine analysis is also was abnormal. Urine cultures of been negative and the patient is on a combination of Rocephin and Zithromax. The echocardiogram showed a normal ejection fraction with 50-50% and the patient has moderate severe mitral regurgitation, moderate TR, right ventricular systolic pressure of around 43 mmHg. No pericardial effusion. On 09/07/2017, I'm seeing this patient for a follow-up. The patient is less short of breath. She is improving in regards to her COPD exacerbation and she is less bronchospastic and wheezy. She remains on a combination of DuoNeb nebulized treatments and IV Solu-Medrol. She is also on a combination of Rocephin and Zithromax and she is afebrile for now. The urine culture has been negative. The blood cultures been negative. Has no significant leukocytosis. The patient had some derangements in her renal function for that reason the cardiac catheterization was postponed. Currently her creatinine is at 1.1 and the patient is possibly getting a cardiac catheterization for an acute non- STEMI within next 24-48 hours. Cardiology is on the case. The patient is free of any chest pain. The echocardiogram shows moderate to severe MR, moderate TR , mild pulmonary hypertension, presented LV function with an ejection fraction of 50-55%. No fever since admission. Her fever has defervesced. On 09/08/2017, the patient is still being treated for an acute COPD exacerbation. She is slowly improving. She is less bronchus spastic and wheezy compared to yesterday. She has afebrile. She is covered with accommodation Rocephin and Zithromax. The plan is to proceed with cardiac catheterization knowing that the patient sustained an acute non-ST segment elevation myocardial infarction during this current hospitalization. She is free of any chest pain. No angina. She has preserved LV function on her echo. No nausea. No vomiting. No altered mentation. No fever or chills. The sepsis workup was negative and the cultures of been negative and the patient did not spike any temperature over the past 24-48 hours. She is resting comfortably in bed. Final recommendations regarding cardiac catheterization will be done with the next 24-48 hours. Patient was reevaluated today on 09/09/2017, feeling much better from the pulmonary perspective, hardly any cough, no wheezing, no shortness of breath. Obviously the patient is responding well to the course of bronchodilators and steroids as well as antibiotics. She is scheduled to undergo cardiac catheterization tomorrow. This will be done by Dr. Chandler. Labs were reviewed she had a relatively normal CBC and the relatively normal basic metabolic profile. BUN is a bit elevated at 47, creatinine is 0.86. Objective - Vital Signs Vital signs: Vital Signs Temp 97.0 F L 09/09/17 08:00 Pulse 53 L 09/09/17 12:00 Resp 14 09/09/17 12:00 BP 113/65 09/09/17 12:00 Pulse Ox 94 L 09/09/17 12:00 Intake & Output 09/08/17 09/09/17 09/09/17 18:59 06:59 18:59 Intake Total 1000 950 480 Output Total 0 0 Balance 1000 950 480 Weight 53 kg Intake: IV 400 150 Sodium Chloride 0.9% 1, 400 150 000 ml @ 50 mls/hr IV . Q20H YORDY Rx#:[id number] Intake, IV Titration 600 Amount Sodium Chloride 0.9% 1, 600 000 ml @ 50 mls/hr IV . Q20H YORDY Rx#:[id number] Oral 600 200 480 Output: Urine 0 Stool 0 0 Other: Voiding Method Toilet Toilet Toilet # Voids 1 1 - Exam Physical exam revealed a 82-year-old female in no distress Head exam was generally normal. There was no scleral icterus or corneal arcus. Mucous membranes were moist. HEENT: PERRLA, EOMI, no icterus. Neck is supple no neck masses no thyromegaly. Moist mucous membranes noted. Neck: Supple no neck masses, no JVD, no thyroid enlargement, no adenopathy. Lungs: Symmetrical expansion, Diminished breath sounds at the bases no crackles or rhonchi and there is bilateral wheezes CVS: Regular rate and rhythm, normal S1 and S2, no gallops, no murmur, no rubs. Abdomen: Soft, nontender, no megaly, no rebound, no guarding, positive bowel sounds. Extremities: No clubbing, no edema, no cyanosis, 2+ pulses in upper and lower extremities.Laceration to right lower extremity covered with sterile dressing, not fully visualized. Musculoskeletal: Muscle strength and tone normal. Neurologic: Alert and oriented 3, normal affect, no focal neurologic deficits. Examination of the skin revealed no evidence of significant rashes, suspicious appearing nevi or other concerning lesions. - Labs CBC & Chem 7: 09/09/17 05:55 09/09/17 05:55 Labs: Abnormal Lab Results - Last 24 Hours (Table) 09/08/17 09/08/17 09/09/17 Range/Units 16:31 21:08 05:55 RBC 3.78 L (3.80-5.40) m/uL Hgb 11.3 L (11.4-16.0) gm/dL Lymphocytes # 0.6 L (1.0-4.8) k/uL Chloride (98-107) mmol/L BUN (7-17) mg/dL Glucose (74-99) mg/dL POC Glucose (mg/dL) 119 H 151 H (75-99) mg/dL 09/09/17 09/09/17 Range/Units 05:55 06:25 RBC (3.80-5.40) m/uL Hgb (11.4-16.0) gm/dL Lymphocytes # (1.0-4.8) k/uL Chloride 110 H (98-107) mmol/L BUN 47 H (7-17) mg/dL Glucose 107 H (74-99) mg/dL POC Glucose (mg/dL) 100 H (75-99) mg/dL Microbiology - Last 24 Hours (Table) 09/05/17 14:10 Blood Culture - Preliminary Blood No Growth after 72 hours Assessment and Plan Assessment: 1 acute COPD exacerbation with secondary shortness of breath. Influenza screen is negative. Clinically improving with a combination of bronchodilators and steroids and antibiotics. The patient is not having any significant respiratory distress today. She is laying comfortably in bed. She was taken off the IV Solu-Medrol and started on a prednisone burst taper. She is also on a combination of Rocephin and Zithromax pH is afebrile for now. 2 severe COPD with a baseline FEV1 of 40% of predicted maintain and accommodation Spiriva and Symbicort on outpatient basis 3 fever currently under investigation. Rule out underlying pneumonia. Rule out secondary to an urine tract infection. The patient has an abnormal urinalysis. The final urine culture and the blood culture came back negative and the patient is currently afebrile. 4 acute non-ST segment elevation myocardial infarction. Will need a cardiac catheterization later stage 5 hyperlipidemia 6 ALLERGIC rhinitis 7 fibrocystic disease of the breast 8 history of distal individual stricture with Schatzki's ring, status post dilatation Recommendation: Continue present supportive treatment plan including antibiotics , steroids, antibiotics, plans for cardiac catheterization tomorrow R in progress. Time with Patient: Less than 30
[2017-09-09 16:53] LABS: Glucose,Whole Blood 132 mg/dL (75-99)
[2017-09-09] MEDS: cefTRIAXone IN SWFI 1,000 MG/10 ML SYRINGE IVP SCH (17:58)
--- NOTE | 2017-09-09 18:58 | P.PN ---
Subjective Progress Note Date: 09/09/17 progress note being dictated for Dr. Sullivan. Interval history: This is an 82-year-old female admitted with acute COPD exacerbation, possible bilateral bronchopneumonia, acute non-STEMI, acute UTI and multiple other medical issues. Maintained on IV antibiotics, nebulized bronchodilators, steroids. Breathing improving with minimal sputum production. Evaluated by both pulmonary and cardiology with recommendations noted. Anticoagulated on heparin drip. Maximizing medical therapy as per cardiology with potential cardiac cath once pulmonary status improves. Echo reporting normal LV function, EF 50-55%, moderate to severe mitral regurgitation, moderate tricuspid regurgitation. Telemetry sinus rhythm Denies chest pain, palpitations or increasing shortness of breath. Urine culture pending. Afebrile. 09/09/2017 respiratory status significantly improved .scheduled for cardiac cath tomorrow. Telemetry sinus rhythm. Ambulated, showered, tolerated exertion. Denies chest pain, palpitations or increasing shortness of breath. Objective - Vital Signs Vital signs: Vital Signs Temp 97.8 F 09/09/17 16:00 Pulse 56 L 09/09/17 16:00 Resp 18 09/09/17 16:00 BP 122/75 09/09/17 16:00 Pulse Ox 97 09/09/17 16:00 Intake & Output 09/08/17 09/09/17 09/09/17 18:59 06:59 18:59 Intake Total 1000 950 720 Output Total 0 0 Balance 1000 950 720 Weight 53 kg Intake: IV 400 150 Sodium Chloride 0.9% 1, 400 150 000 ml @ 50 mls/hr IV . Q20H YORDY Rx#:[id number] Intake, IV Titration 600 Amount Sodium Chloride 0.9% 1, 600 000 ml @ 50 mls/hr IV . Q20H YORDY Rx#:[id number] Oral 600 200 720 Output: Urine 0 Stool 0 0 Other: Voiding Method Toilet Toilet Toilet # Voids 1 1 - Exam PHYSICAL EXAM: VITAL SIGNS: As above GENERAL: Sitting up in bed, no acute distress HEENT: Conjunctivae normal. eyes normal. Oral mucosa moist NECK: No JVD. No thyroid enlargement. No LNs CARDIOVASCULAR: S1, S2 muffled. Systolic murmur RESPIRATION: Breath sounds diminished in the bases. No rhonchi, no crackles, no wheezing ABDOMEN: Soft, nontender . No guarding. no masses palpable. Bowel sounds heard. LEGS: No edema. no swelling PSYCHIATRY: Alert and oriented -3, mood and affect normal. NERVOUS SYSTEM: Cranial N 2-12 grossly normal. Moves all 4 limbs. Diffuse weakness No focal deficits. Skin: no ulcer no rash Joints: No active swelling. No inflammation. Lymphatic system. No LN neck axilla or groin. - Labs CBC & Chem 7: 09/09/17 05:55 09/09/17 05:55 Labs: Abnormal Lab Results - Last 24 Hours (Table) 09/08/17 09/09/17 09/09/17 Range/Units 21:08 05:55 05:55 RBC 3.78 L (3.80-5.40) m/uL Hgb 11.3 L (11.4-16.0) gm/dL Lymphocytes # 0.6 L (1.0-4.8) k/uL Chloride 110 H (98-107) mmol/L BUN 47 H (7-17) mg/dL Glucose 107 H (74-99) mg/dL POC Glucose (mg/dL) 151 H (75-99) mg/dL 09/09/17 09/09/17 Range/Units 06:25 16:45 RBC (3.80-5.40) m/uL Hgb (11.4-16.0) gm/dL Lymphocytes # (1.0-4.8) k/uL Chloride (98-107) mmol/L BUN (7-17) mg/dL Glucose (74-99) mg/dL POC Glucose (mg/dL) 100 H 132 H (75-99) mg/dL Microbiology - Last 24 Hours (Table) 09/05/17 14:10 Blood Culture - Preliminary Blood No Growth after 96 hours Assessment and Plan Assessment: Acute severe COPD exacerbation with possible bilateral bronchopneumonia acute non-STEMI acute UTI Thrombocytopenia Plan: Continue on current medication regime ,monitoring and symptomatic treatment. Maintain nebulized medical dilators, steroids, antibiotics, beta ben. Scheduled for cardiac catheterization tomorrow. The impression and plan of care has been dictated as directed. : I performed a history and examination of this patient, discussed the same with the dictator. I agree with the dictator's note ,documented as a scribe. Any additional findings or plans will be noted.
[2017-09-09] MEDS: SODIUM CHLORIDE 0.9% 1,000 ML IV SCH (20:32)
[2017-09-09] MEDS: ATORVASTATIN 40 MG TAB PO SCH (20:33)
[2017-09-09] MEDS: CITALOPRAM HYDROBROMIDE 10 MG TAB PO SCH (20:33)
[2017-09-09 20:49] LABS: Glucose,Whole Blood 116 mg/dL (75-99)
[2017-09-09] MEDS: MONTELUKAST 10 MG TAB PO SCH (21:11)
[2017-09-10 06:28] LABS: Basophils % (A) 0 %; Eosinophils % (A) 1 %; HCT 34.5 % (34.0-46.0); HGB 11.2 gm/dL (11.4-16.0); Lymphocytes # (A) 1.2 k/uL (1.0-4.8); Lymphocytes % (A) 20 %; MCH 29.3 pg (25.0-35.0); MCHC 32.6 g/dL (31.0-37.0); MCV 89.9 fL (80.0-100.0); Mean Platelet Volume 7.3; Monocytes # (A) 0.5 k/uL (0-1.0); Monocytes % (A) 8 %; Neutrophils # (A) 4.1 k/uL (1.3-7.7); Neutrophils % (A) 70 %; Platelet Count 161 k/uL (150-450); RBC 3.83 m/uL (3.80-5.40); RDW 12.8 % (11.5-15.5); WBC 5.9 k/uL (3.8-10.6)
[2017-09-10 06:42] LABS: Calcium 8.6 mg/dL (8.4-10.2); Potassium 4.3 mmol/L (3.5-5.1)
[2017-09-10 06:49] LABS: Glucose,Whole Blood 78 mg/dL (75-99)
[2017-09-10] MEDS: INSULIN ASPART 100 UNIT/ML 1 ML 10 ML VIAL SQ SCH ×4 (06:51→22:10)
[2017-09-10] MEDS: ASPIRIN 81 MG PO SCH (06:51)
[2017-09-10] MEDS: METOPROLOL TARTRATE 25 MG TAB PO SCH ×2 (07:00→20:49)
[2017-09-10] MEDS: SYMBICORT 160-4.5 MCG INHALER INHALATION SCH ×2 (08:19→19:17)
[2017-09-10] MEDS: LORATADINE 10 MG TAB PO SCH (09:01)
[2017-09-10] MEDS: MULTIVITAMINS, THERA 1 EACH TAB PO SCH ×2 (09:01→15:48)
[2017-09-10] MEDS: CALCIUM CARB-VIT D 500MG-200UN 1 EACH TAB PO SCH ×3 (09:01→15:49)
[2017-09-10] MEDS: PANTOPRAZOLE 40 MG TABLET PO SCH (09:02)
[2017-09-10] MEDS: SODIUM CHLORIDE 0.65% NASAL SPRAY 44 ML BTL NASAL SCH ×2 (09:02→20:49)
[2017-09-10] MEDS ORDERED: LIDOCAINE 2% INJ 20 MG/ML (20 ML MDV) ONE (09:18)
[2017-09-10] MEDS ORDERED: diphenhydrAMINE 50 MG/ML 1 ML VIAL ONE (09:19)
[2017-09-10] MEDS ORDERED: fentaNYL (PF) 50 MCG/ML 2 ML AMP ONE ×2 (09:19→12:22)
[2017-09-10] MEDS ORDERED: VERAPAMIL 2.5 MG/ML 2 ML AMP ONE (09:27)
[2017-09-10] MEDS ORDERED: HEPARIN SODIUM 1,000 UN/ML (10ML VL) ONE (09:27)
[2017-09-10] MEDS ORDERED: IV FLUID CONTINUATION 500 ML IV ONE (09:31)
[2017-09-10] MEDS ORDERED: diphenhydrAMINE 50 MG/ML 1 ML VIAL IVP ONE (09:36)
[2017-09-10] MEDS ORDERED: fentaNYL (PF) 50 MCG/ML 2 ML AMP IVP ONE (09:59)
[2017-09-10] MEDS ORDERED: LIDOCAINE 2% INJ 20 MG/ML SQ ONE (10:04)
[2017-09-10] MEDS ORDERED: VERAPAMIL SYRINGE (5 MG/10 ML) INTRAARTER ONE (10:06)
[2017-09-10] MEDS ORDERED: HEPARIN SODIUM 1,000 UN/ML (10ML VL) IV ONE (10:16)
[2017-09-10] MEDS ORDERED: IOPAMIDOL-370 125ML BTL INJ ONE (10:24)
[2017-09-10] MEDS ORDERED: RX INFO: IV CONTRAST WAS GIVEN 1 EACH MISC MISCELLANE PRN (10:34)
[2017-09-10] MEDS ORDERED: SODIUM CHLORIDE 0.9% 1,000 ML IV SCH (10:45)
--- NOTE | 2017-09-10 11:02 | CC ---
CARDIAC CATHETERIZATION REPORT Ms. Romero is an 82-year-old female with no prior documented history of coronary artery disease who presented with symptoms of pneumonia but had abnormality on her troponin up to 3 with no significant EKG changes. After treating her pneumonia and stabilizing her, recommendation was made regarding cardiac catheterization. The procedure as well as the risks and the complications were discussed with the patient who is in full understanding and agreement. PROCEDURE: Patient was brought to the biology laboratory assistant in fasting semi-sedated state after receiving fentanyl and Benadryl and achieving moderate conscious sedated state. Using Xylocaine anesthesia in the Seldinger technique, a 6-Angolan sheath was introduced in the right radial artery. Selective right and left coronary angiography performed using 5- Angolan 3.5 bend bend right and left Frances catheter. Multiple views of the coronary artery including hemiaxial views were obtained. Following that, a 5-Angolan tight pigtail catheter was introduced into the left ventricle and a 30-degree SALINAS view of the left ventricular obtained. Following that, the catheter and sheaths were removed. Hemostasis was obtained with deployment of a TR band. There was no immediate complication. Patient is returned to room in stable condition. Of note, the patient received 3000 units of intravenous heparin as well as intra-arterial verapamil. FINDINGS: LEFT MAIN: This is a very short size vessel almost nonexisting bifurcating to the left circumflex and left anterior descending artery. Left main coronary artery has no evidence of obstructive coronary artery disease. LEFT ANTERIOR DESCENDING ARTERY: This is a large-sized vessel reaching towards the apex with a wraparound apex segment giving rise to a moderately sized diagonal branch in the mid segment. The left anterior descending artery as well as branches have no evidence of obstructive coronary artery disease. LEFT CIRCUMFLEX: This is a nondominant vessel, large in caliber giving rise to 3 obtuse marginal branches. The left circumflex as well as branches have no evidence of obstructive coronary artery disease. RIGHT CORONARY ARTERY: This is a dominant vessel, small in caliber bifurcating distally in PDA and posterolateral segment and branches. The right coronary artery as well as branches have no evidence of obstructive coronary artery disease. LEFT VENTRICULOGRAM: Left ventriculogram is performed in 30-degree SALINAS view and revealed inferobasal hypokinesis with ejection fraction of 50%. There was arrhythmia induced mitral regurgitation. CONCLUSION: 1. Normal coronary arteries. 2. Mildly impaired left ventricular systolic function with segmental wall motion abnormality raising the possibility of a transient occlusion of the vessel. RECOMMENDATION: Patient will be continued on the aggressive coronary risk modification and depending on her progress, further recommendation will be made. Those findings and recommendations were discussed with the patient and her family and are in full understanding and agreement. Duration of the procedure is 22 minutes. RYLEE / MICHAEL: [id number] / MTDD
--- NOTE | 2017-09-10 11:08 | LTR ---
September 10, 2017 Re: Amelia Roemro Dear Dr. Maza: I had the opportunity to perform cardiac catheterization on Mrs. Romero at [facility] on the 10 of September and a full copy of the procedure note will be forwarded to you. In brief, she was found to have no evidence of obstructive coronary artery disease with a mildly impaired left ventricular systolic function. Based on those findings, I recommend to continue medical therapy with aggressive coronary risk modification that has been initiated. Thank you again for allowing me the opportunity to participate in her care. Please feel free to call for any questions. Sincerely yours, MD CAMRON BairdL / CLARITAN: [id number] /
[2017-09-10] MEDS: predniSONE 20 MG TAB PO SCH (11:11)
[2017-09-10 11:48] LABS: Glucose,Whole Blood 133 mg/dL (75-99)
[2017-09-10] MEDS: AZITHROMYCIN 500 MG TAB PO SCH (12:01)
[2017-09-10] MEDS: SODIUM CHLORIDE 0.9% 1,000 ML IV SCH (12:02)
--- NOTE | 2017-09-10 12:35 | P.PN ---
Subjective Progress Note Date: 09/10/17 Principal diagnosis: Acute exacerbation of COPD and acute non-ST elevation myocardial infarction A pleasant 83-year-old female patient with known history of advanced COPD who has been followed up in our office by Dr. Guadalupe. She is also known to have hyperlipidemia and ALLERGIC rhinitis and acid reflux. The patient has degenerative arthritis also. The patient came into the emergency department having physical therapy breathing. Note that on outpatient basis she has been maintained on a combination of Spiriva and Symbicort and her baseline FEV1 based on a spirometer this was done in 2017 showed an FEV1 of 0.84 L which is 41 % of predicted with some limited reversibility post-bronchodilation. The patient came in today to the emergency department and the patient complained of increased difficulty breathing without any significant sputum production. She was getting progressively more weak. She did not have any fever. She has no chest pain. No palpitations. No nausea vomiting or diarrhea. Chest x-ray shows hyperinflation COPD without any acute abnormalities. She was admitted to the hospital for further treatment. She is febrile with a temperature of 11.5 max and her subsequent temperatures 100.4. Her pulse ox was 87% on room air and currently she is on 2 L of oxygen nasal cannula bringing her pulse ox up to 95%. First set of troponin was at 0.097. Lactic acid level was at 1.4. The urinalysis was also abnormal with evidence of pyuria with 42 WBCs. Influenza screen was negative. EKG showed a normal sinus rhythm. There is some nonspecific T-wave inversions and depression and the ST segment in the lateral leads. On today's evaluation, the patient is less short of breath compared to yesterday. No cervical respiratory distress. No chest pain. She ruled in for an acute non-ST segment elevation myocardial infarction and the patient will be having a cardiac catheterization later stage. Her fever has defervesced and the patient has remained afebrile for now. No dysuria frequency or urgency. Urine culture is still pending for now. Chest x-ray as mentioned was negative and the patient's chest x-ray showed no evidence of any acute pneumonia. Urine analysis is also was abnormal. Urine cultures of been negative and the patient is on a combination of Rocephin and Zithromax. The echocardiogram showed a normal ejection fraction with 50-50% and the patient has moderate severe mitral regurgitation, moderate TR, right ventricular systolic pressure of around 43 mmHg. No pericardial effusion. On 09/07/2017, I'm seeing this patient for a follow-up. The patient is less short of breath. She is improving in regards to her COPD exacerbation and she is less bronchospastic and wheezy. She remains on a combination of DuoNeb nebulized treatments and IV Solu-Medrol. She is also on a combination of Rocephin and Zithromax and she is afebrile for now. The urine culture has been negative. The blood cultures been negative. Has no significant leukocytosis. The patient had some derangements in her renal function for that reason the cardiac catheterization was postponed. Currently her creatinine is at 1.1 and the patient is possibly getting a cardiac catheterization for an acute non- STEMI within next 24-48 hours. Cardiology is on the case. The patient is free of any chest pain. The echocardiogram shows moderate to severe MR, moderate TR , mild pulmonary hypertension, presented LV function with an ejection fraction of 50-55%. No fever since admission. Her fever has defervesced. On 09/08/2017, the patient is still being treated for an acute COPD exacerbation. She is slowly improving. She is less bronchus spastic and wheezy compared to yesterday. She has afebrile. She is covered with accommodation Rocephin and Zithromax. The plan is to proceed with cardiac catheterization knowing that the patient sustained an acute non-ST segment elevation myocardial infarction during this current hospitalization. She is free of any chest pain. No angina. She has preserved LV function on her echo. No nausea. No vomiting. No altered mentation. No fever or chills. The sepsis workup was negative and the cultures of been negative and the patient did not spike any temperature over the past 24-48 hours. She is resting comfortably in bed. Final recommendations regarding cardiac catheterization will be done with the next 24-48 hours. Patient was reevaluated today on 09/09/2017, feeling much better from the pulmonary perspective, hardly any cough, no wheezing, no shortness of breath. Obviously the patient is responding well to the course of bronchodilators and steroids as well as antibiotics. She is scheduled to undergo cardiac catheterization tomorrow. This will be done by Dr. Chandler. Labs were reviewed she had a relatively normal CBC and the relatively normal basic metabolic profile. BUN is a bit elevated at 47, creatinine is 0.86. The patient is seen again today 09/10/2017 in follow-up in the selective care unit. She is currently awake and alert in no acute distress. She denies any shortness of breath, cough or congestion. She is maintaining good O2 saturations in the high 90s on room air. She's been afebrile. Hemodynamically stable. She did undergo cardiac catheterization this morning and was found to have normal coronary arteries. There is just mildly impaired left ventricular systolic function with segmental wall motion abnormality reason the possibility of a transient occlusion of the vessel. She'll be treated medically. Objective - Vital Signs Vital signs: Vital Signs Temp 97.4 F L 09/10/17 09:00 Pulse 54 L 09/10/17 09:00 Resp 18 09/10/17 09:00 BP 139/74 09/10/17 09:00 Pulse Ox 97 09/10/17 09:00 Intake & Output 09/09/17 09/10/17 09/10/17 18:59 06:59 18:59 Intake Total 720 75 Output Total 0 0 0 Balance 720 0 75 Weight 55 kg Intake: IV 75 Oral 720 Output: Stool 0 0 0 Other: Voiding Method Toilet Toilet Toilet # Voids 1 1 1 # Bowel Movements 1 - Exam Physical exam revealed a 82-year-old female in no distress Head exam was generally normal. There was no scleral icterus or corneal arcus. Mucous membranes were moist. HEENT: PERRLA, EOMI, no icterus. Neck is supple no neck masses no thyromegaly. Moist mucous membranes noted. Neck: Supple no neck masses, no JVD, no thyroid enlargement, no adenopathy. Lungs: Symmetrical expansion, Diminished breath sounds at the bases no crackles or rhonchi and there is bilateral wheezes CVS: Regular rate and rhythm, normal S1 and S2, no gallops, no murmur, no rubs. Abdomen: Soft, nontender, no megaly, no rebound, no guarding, positive bowel sounds. Extremities: No clubbing, no edema, no cyanosis, 2+ pulses in upper and lower extremities.Laceration to right lower extremity covered with sterile dressing, not fully visualized. Musculoskeletal: Muscle strength and tone normal. Neurologic: Alert and oriented 3, normal affect, no focal neurologic deficits. Examination of the skin revealed no evidence of significant rashes, suspicious appearing nevi or other concerning lesions. - Labs CBC & Chem 7: 09/10/17 06:01 09/10/17 06:01 Labs: Abnormal Lab Results - Last 24 Hours (Table) 09/09/17 09/09/17 09/10/17 Range/Units 16:45 20:47 06:01 Hgb 11.2 L (11.4-16.0) gm/dL Chloride (98-107) mmol/L BUN (7-17) mg/dL POC Glucose (mg/dL) 132 H 116 H (75-99) mg/dL 09/10/17 09/10/17 Range/Units 06:01 11:47 Hgb (11.4-16.0) gm/dL Chloride 110 H (98-107) mmol/L BUN 37 H (7-17) mg/dL POC Glucose (mg/dL) 133 H (75-99) mg/dL Microbiology - Last 24 Hours (Table) 09/05/17 14:10 Blood Culture - Preliminary Blood No Growth after 96 hours Assessment and Plan Assessment: 1 acute COPD exacerbation with secondary shortness of breath. Influenza screen is negative. Clinically improving with a combination of bronchodilators and steroids and antibiotics. The patient is not having any significant respiratory distress today. She is laying comfortably in bed. She was taken off the IV Solu-Medrol and started on a prednisone burst taper. She is also on a combination of Rocephin and Zithromax pH is afebrile for now. 2 severe COPD with a baseline FEV1 of 40% of predicted maintain and accommodation Spiriva and Symbicort on outpatient basis 3 fever currently under investigation. Rule out underlying pneumonia. Rule out secondary to an urine tract infection. The patient has an abnormal urinalysis. The final urine culture and the blood culture came back negative and the patient is currently afebrile. 4 acute non-ST segment elevation myocardial infarction. Cardiac catheterization was performed today revealed normal coronary arteries. There was mildly impaired left ventricular systolic function with segmental wall motion abnormality raising the possibility of a transient occlusion of the vessel. The plan is to treat medically. 5 hyperlipidemia 6 ALLERGIC rhinitis 7 fibrocystic disease of the breast 8 history of distal individual stricture with Schatzki's ring, status post dilatation Recommendation: The patient was seen and evaluated by Dr. Maza. She is stable from the pulmonary standpoint. She remains on Symbicort and DuoNeb inhalations. She is on a prednisone taper. Antibiotics in the form of azithromycin. Cardiac catheterization revealed normal coronary arteries. I, the cosigning physician, performed a history & physical examination of the patient. Lungs sounds are clear. Maintaining good O2 saturations in the 90s on room air. I discussed the assessment and plan of care with my nurse practitioner, Karina Werner. I attest to the above note as dictated by her.
[2017-09-10 16:49] LABS: Glucose,Whole Blood 175 mg/dL (75-99)
--- NOTE | 2017-09-10 16:49 | P.PN ---
Subjective Progress Note Date: 09/10/17 progress note being dictated for Dr. Sullivan. Interval history: This is an 82-year-old female admitted with acute COPD exacerbation, possible bilateral bronchopneumonia, acute non-STEMI, acute UTI and multiple other medical issues. Maintained on IV antibiotics, nebulized bronchodilators, steroids. Breathing improving with minimal sputum production. Evaluated by both pulmonary and cardiology with recommendations noted. Anticoagulated on heparin drip. Maximizing medical therapy as per cardiology with potential cardiac cath once pulmonary status improves. Echo reporting normal LV function, EF 50-55%, moderate to severe mitral regurgitation, moderate tricuspid regurgitation. Telemetry sinus rhythm Denies chest pain, palpitations or increasing shortness of breath. Urine culture pending. Afebrile. 09/09/2017 respiratory status significantly improved .scheduled for cardiac cath tomorrow. Telemetry sinus rhythm. Ambulated, showered, tolerated exertion. Denies chest pain, palpitations or increasing shortness of breath. 09/10/2017 underwent cardiac catheterization today, reporting normal coronary arteries with mild impaired LV function, subsegmental wall motion abnormality, possible transient occlusion of the vessel with medical management recommended. Denies chest pain, palpitations or increasing shortness of breath. Maintaining O2 sats in the high 90s on room air. Objective - Vital Signs Vital signs: Vital Signs Temp 97.4 F L 09/10/17 09:00 Pulse 54 L 09/10/17 09:00 Resp 18 09/10/17 09:00 BP 139/74 09/10/17 09:00 Pulse Ox 97 09/10/17 09:00 Intake & Output 09/09/17 09/10/17 09/10/17 18:59 06:59 18:59 Intake Total 720 75 Output Total 0 0 0 Balance 720 0 75 Weight 55 kg Intake: IV 75 Oral 720 Output: Stool 0 0 0 Other: Voiding Method Toilet Toilet Toilet # Voids 1 1 1 # Bowel Movements 1 - Exam PHYSICAL EXAM: VITAL SIGNS: As above GENERAL: Lying in bed, no acute distress. HEENT: Conjunctivae normal. eyes normal. Oral mucosa moist NECK: No JVD. No thyroid enlargement. No LNs CARDIOVASCULAR: S1, S2 muffled. Systolic murmur RESPIRATION: Breath sounds diminished in the bases. No rhonchi, no crackles, no wheezing ABDOMEN: Soft, nontender . No guarding. no masses palpable. Bowel sounds heard. LEGS: No edema. no swelling PSYCHIATRY: Alert and oriented -3, mood and affect normal. NERVOUS SYSTEM: Cranial N 2-12 grossly normal. Moves all 4 limbs. Diffuse weakness No focal deficits. Skin: no ulcer no rash - Labs CBC & Chem 7: 09/10/17 06:01 09/10/17 06:01 Labs: Abnormal Lab Results - Last 24 Hours (Table) 09/09/17 09/09/17 09/10/17 Range/Units 16:45 20:47 06:01 Hgb 11.2 L (11.4-16.0) gm/dL Chloride (98-107) mmol/L BUN (7-17) mg/dL POC Glucose (mg/dL) 132 H 116 H (75-99) mg/dL 09/10/17 09/10/17 Range/Units 06:01 11:47 Hgb (11.4-16.0) gm/dL Chloride 110 H (98-107) mmol/L BUN 37 H (7-17) mg/dL POC Glucose (mg/dL) 133 H (75-99) mg/dL Microbiology - Last 24 Hours (Table) 09/05/17 14:10 Blood Culture - Preliminary Blood No Growth after 96 hours Assessment and Plan Assessment: Acute severe COPD exacerbation with possible bilateral bronchopneumonia acute non-STEMI, status post cardiac catheterization reporting normal coronary arteries with mild impaired LV function, segmental wall motion abnormality. Medical management acute UTI Thrombocytopenia Plan: Continue on current medication regime ,monitoring and symptomatic treatment. Continue on nebulized medical dilators, steroids, antibiotics, beta ben. Steroid tapering in progress as per pulmonary. Discharge planning in progress for tomorrow pending cardiology clearance. The impression and plan of care has been dictated as directed. : I performed a history and examination of this patient, discussed the same with the dictator. I agree with the dictator's note ,documented as a scribe. Any additional findings or plans will be noted.
[2017-09-10] MEDS: ATORVASTATIN 40 MG TAB PO SCH (20:48)
[2017-09-10] MEDS: MONTELUKAST 10 MG TAB PO SCH (20:49)
[2017-09-10] MEDS: CITALOPRAM HYDROBROMIDE 10 MG TAB PO SCH (20:49)
[2017-09-10 21:19] LABS: Glucose,Whole Blood 92 mg/dL (75-99)
[2017-09-11 06:00] LABS: Glucose,Whole Blood 76 mg/dL (75-99)
[2017-09-11] MEDS: INSULIN ASPART 100 UNIT/ML 1 ML 10 ML VIAL SQ SCH ×2 (06:08→13:18)
[2017-09-11] MEDS: CALCIUM CARB-VIT D 500MG-200UN 1 EACH TAB PO SCH ×2 (06:49→13:23)
[2017-09-11] MEDS: MULTIVITAMINS, THERA 1 EACH TAB PO SCH (06:49)
[2017-09-11] MEDS: PANTOPRAZOLE 40 MG TABLET PO SCH (06:49)
[2017-09-11 06:54] LABS: Basophils % (A) 0 %; Eosinophils % (A) 1 %; HCT 35.7 % (34.0-46.0); HGB 11.9 gm/dL (11.4-16.0); Lymphocytes # (A) 1.7 k/uL (1.0-4.8); Lymphocytes % (A) 25 %; MCH 29.4 pg (25.0-35.0); MCHC 33.4 g/dL (31.0-37.0); MCV 88.2 fL (80.0-100.0); Mean Platelet Volume 6.9; Monocytes # (A) 0.5 k/uL (0-1.0); Monocytes % (A) 8 %; Neutrophils # (A) 4.3 k/uL (1.3-7.7); Neutrophils % (A) 65 %; Platelet Count 178 k/uL (150-450); RBC 4.05 m/uL (3.80-5.40); RDW 12.6 % (11.5-15.5); WBC 6.6 k/uL (3.8-10.6)
[2017-09-11] MEDS: SYMBICORT 160-4.5 MCG INHALER INHALATION SCH (07:16)
[2017-09-11] MEDS: SODIUM CHLORIDE 0.9% 1,000 ML IV SCH (08:41)
[2017-09-11] MEDS: SODIUM CHLORIDE 0.65% NASAL SPRAY 44 ML BTL NASAL SCH (08:45)
[2017-09-11] MEDS: ASPIRIN 81 MG PO SCH (08:45)
[2017-09-11] MEDS: METOPROLOL TARTRATE 25 MG TAB PO SCH (08:46)
[2017-09-11] MEDS: predniSONE 20 MG TAB PO SCH (08:46)
[2017-09-11] MEDS: LORATADINE 10 MG TAB PO SCH (08:47)
[2017-09-11 08:49] VITALS: BP 119/65; PULSE 52; TEMP 97.8
[2017-09-11 11:36] LABS: Glucose,Whole Blood 106 mg/dL (75-99)
--- NOTE | 2017-09-11 11:37 | P.PN ---
Subjective Progress Note Date: 09/11/17 Principal diagnosis: Acute exacerbation of COPD and acute non-ST elevation myocardial infarction A pleasant 83-year-old female patient with known history of advanced COPD who has been followed up in our office by Dr. Guadalupe. She is also known to have hyperlipidemia and ALLERGIC rhinitis and acid reflux. The patient has degenerative arthritis also. The patient came into the emergency department having physical therapy breathing. Note that on outpatient basis she has been maintained on a combination of Spiriva and Symbicort and her baseline FEV1 based on a spirometer this was done in 2017 showed an FEV1 of 0.84 L which is 41 % of predicted with some limited reversibility post-bronchodilation. The patient came in today to the emergency department and the patient complained of increased difficulty breathing without any significant sputum production. She was getting progressively more weak. She did not have any fever. She has no chest pain. No palpitations. No nausea vomiting or diarrhea. Chest x-ray shows hyperinflation COPD without any acute abnormalities. She was admitted to the hospital for further treatment. She is febrile with a temperature of 11.5 max and her subsequent temperatures 100.4. Her pulse ox was 87% on room air and currently she is on 2 L of oxygen nasal cannula bringing her pulse ox up to 95%. First set of troponin was at 0.097. Lactic acid level was at 1.4. The urinalysis was also abnormal with evidence of pyuria with 42 WBCs. Influenza screen was negative. EKG showed a normal sinus rhythm. There is some nonspecific T-wave inversions and depression and the ST segment in the lateral leads. On today's evaluation, the patient is less short of breath compared to yesterday. No cervical respiratory distress. No chest pain. She ruled in for an acute non-ST segment elevation myocardial infarction and the patient will be having a cardiac catheterization later stage. Her fever has defervesced and the patient has remained afebrile for now. No dysuria frequency or urgency. Urine culture is still pending for now. Chest x-ray as mentioned was negative and the patient's chest x-ray showed no evidence of any acute pneumonia. Urine analysis is also was abnormal. Urine cultures of been negative and the patient is on a combination of Rocephin and Zithromax. The echocardiogram showed a normal ejection fraction with 50-50% and the patient has moderate severe mitral regurgitation, moderate TR, right ventricular systolic pressure of around 43 mmHg. No pericardial effusion. On 09/07/2017, I'm seeing this patient for a follow-up. The patient is less short of breath. She is improving in regards to her COPD exacerbation and she is less bronchospastic and wheezy. She remains on a combination of DuoNeb nebulized treatments and IV Solu-Medrol. She is also on a combination of Rocephin and Zithromax and she is afebrile for now. The urine culture has been negative. The blood cultures been negative. Has no significant leukocytosis. The patient had some derangements in her renal function for that reason the cardiac catheterization was postponed. Currently her creatinine is at 1.1 and the patient is possibly getting a cardiac catheterization for an acute non- STEMI within next 24-48 hours. Cardiology is on the case. The patient is free of any chest pain. The echocardiogram shows moderate to severe MR, moderate TR , mild pulmonary hypertension, presented LV function with an ejection fraction of 50-55%. No fever since admission. Her fever has defervesced. On 09/08/2017, the patient is still being treated for an acute COPD exacerbation. She is slowly improving. She is less bronchus spastic and wheezy compared to yesterday. She has afebrile. She is covered with accommodation Rocephin and Zithromax. The plan is to proceed with cardiac catheterization knowing that the patient sustained an acute non-ST segment elevation myocardial infarction during this current hospitalization. She is free of any chest pain. No angina. She has preserved LV function on her echo. No nausea. No vomiting. No altered mentation. No fever or chills. The sepsis workup was negative and the cultures of been negative and the patient did not spike any temperature over the past 24-48 hours. She is resting comfortably in bed. Final recommendations regarding cardiac catheterization will be done with the next 24-48 hours. Patient was reevaluated today on 09/09/2017, feeling much better from the pulmonary perspective, hardly any cough, no wheezing, no shortness of breath. Obviously the patient is responding well to the course of bronchodilators and steroids as well as antibiotics. She is scheduled to undergo cardiac catheterization tomorrow. This will be done by Dr. Chandler. Labs were reviewed she had a relatively normal CBC and the relatively normal basic metabolic profile. BUN is a bit elevated at 47, creatinine is 0.86. The patient is seen again today 09/10/2017 in follow-up in the selective care unit. She is currently awake and alert in no acute distress. She denies any shortness of breath, cough or congestion. She is maintaining good O2 saturations in the high 90s on room air. She's been afebrile. Hemodynamically stable. She did undergo cardiac catheterization this morning and was found to have normal coronary arteries. There is just mildly impaired left ventricular systolic function with segmental wall motion abnormality reason the possibility of a transient occlusion of the vessel. She'll be treated medically. The patient is seen again today 09/11/2017 in follow-up on the selective care unit. She is currently resting quite comfortably in bed. She is awake and alert in no acute distress. She denies any shortness of breath, cough or congestion. Continues to maintain good O2 saturations in the 90s on room air. She is afebrile. Hemodynamically stable. No chest pain, palpitations lightheadedness or dizziness. Blood cultures reveal no growth. White count 6.6. Hemoglobin 11.9. Urine culture reveals no growth. She is feeling nearly back to her baseline. She is hoping to go home. Objective - Vital Signs Vital signs: Vital Signs Temp 97.8 F 09/11/17 08:48 Pulse 52 L 09/11/17 08:48 Resp 16 09/11/17 08:48 BP 119/65 09/11/17 08:48 Pulse Ox 96 09/11/17 08:48 Intake & Output 09/10/17 09/11/17 09/11/17 18:59 06:59 18:59 Intake Total 551 240 Output Total 0 0 200 Balance 551 0 40 Weight 55.1 kg Intake: IV 75 Oral 476 240 Output: Urine 200 Stool 0 0 Other: Voiding Method Toilet Toilet # Voids 1 2 1 # Bowel Movements 0 - Exam Physical exam revealed a 82-year-old female in no distress Head exam was generally normal. There was no scleral icterus or corneal arcus. Mucous membranes were moist. HEENT: PERRLA, EOMI, no icterus. Neck is supple no neck masses no thyromegaly. Moist mucous membranes noted. Neck: Supple no neck masses, no JVD, no thyroid enlargement, no adenopathy. Lungs: Symmetrical expansion, Diminished breath sounds at the bases no crackles or rhonchi and there is bilateral wheezes CVS: Regular rate and rhythm, normal S1 and S2, no gallops, no murmur, no rubs. Abdomen: Soft, nontender, no megaly, no rebound, no guarding, positive bowel sounds. Extremities: No clubbing, no edema, no cyanosis, 2+ pulses in upper and lower extremities.Laceration to right lower extremity covered with sterile dressing, not fully visualized. Musculoskeletal: Muscle strength and tone normal. Neurologic: Alert and oriented 3, normal affect, no focal neurologic deficits. Examination of the skin revealed no evidence of significant rashes, suspicious appearing nevi or other concerning lesions. - Labs CBC & Chem 7: 09/11/17 06:40 09/10/17 06:01 Labs: Abnormal Lab Results - Last 24 Hours (Table) 09/10/17 09/10/17 Range/Units 11:47 16:46 POC Glucose (mg/dL) 133 H 175 H (75-99) mg/dL Microbiology - Last 24 Hours (Table) 09/05/17 14:10 Blood Culture - Preliminary Blood No Growth after 120 hours Assessment and Plan Assessment: 1 acute COPD exacerbation with secondary shortness of breath. Influenza screen is negative. Clinically improving with a combination of bronchodilators and steroids and antibiotics. The patient is not having any significant respiratory distress today. She is laying comfortably in bed. She was taken off the IV Solu-Medrol and started on a prednisone burst taper. She is also on Zithromax and is afebrile for now. 2 severe COPD with a baseline FEV1 of 40% of predicted maintain and accommodation Spiriva and Symbicort on outpatient basis 3 fever currently under investigation. Rule out underlying pneumonia. Rule out secondary to an urine tract infection. The patient has an abnormal urinalysis. The final urine culture and the blood culture came back negative and the patient is currently afebrile. 4 acute non-ST segment elevation myocardial infarction. Cardiac catheterization was performed today revealed normal coronary arteries. There was mildly impaired left ventricular systolic function with segmental wall motion abnormality raising the possibility of a transient occlusion of the vessel. The plan is to treat medically. 5 hyperlipidemia 6 ALLERGIC rhinitis 7 fibrocystic disease of the breast 8 history of distal individual stricture with Schatzki's ring, status post dilatation Recommendation: The patient was seen and evaluated by Dr. Maza. She is stable from the pulmonary standpoint. She remains on Symbicort and DuoNeb inhalations. She is on a prednisone taper. Antibiotics in the form of azithromycin. Cardiac catheterization revealed normal coronary arteries. He is cleared for discharge. She'll follow-up in our office with Dr. Maza in 1-2 weeks' time. I, the cosigning physician, performed a history & physical examination of the patient. Lungs sounds are clear. Maintaining good O2 saturations in the 90s on room air. I discussed the assessment and plan of care with my nurse practitioner, Karina Werner. I attest to the above note as dictated by her.
[2017-09-11] MEDS: AZITHROMYCIN 500 MG TAB PO SCH (13:23)
[2017-09-11 15:00] VITALS: RESP 14
--- NOTE | 2017-09-11 15:57 | P.PN ---
Subjective Progress Note Date: 09/11/17 This is an 82-year-old female who presented to the hospital with symptoms of productive cough, was diagnosed with pneumonia. She was also noted to have evidence of troponin elevation. Patient was seen and examined this morning, is overall feeling significantly better, continues to have a cough but much less. Afebrile. An echocardiogram with Doppler study was performed which revealed an ejection fraction of 50-55%. Moderate severe mitral regurgitation and moderate tricuspid regurg also noted. Blood pressure 112/60, heart rate in the 50s, temperature 90.7. Hemoglobin 11.3, platelet count 152. Sodium 143, potassium 4.5, BUN 46, creatinine 0.8. 2017 Patient seen and examined this morning, denies any chest pain, breathing is stable. Underwent a cardiac catheterization yesterday which revealed normal coronary arteries with mildly impaired left ventricular systolic function. Hemodynamically stable today. From cardiology's perspective, she may be able to be discharged home to follow-up with Dr. Chandler in one week in the office. Objective - Vital Signs Vital signs: Vital Signs Temp 97.8 F 09/11/17 08:48 Pulse 52 L 09/11/17 14:00 Resp 14 09/11/17 14:00 BP 119/65 09/11/17 08:48 Pulse Ox 96 09/11/17 08:48 Intake & Output 09/10/17 09/11/17 09/11/17 18:59 06:59 18:59 Intake Total 551 480 Output Total 0 0 400 Balance 551 0 80 Weight 55.1 kg Intake: IV 75 Oral 476 480 Output: Urine 400 Stool 0 0 0 Other: Voiding Method Toilet Toilet Toilet # Voids 1 2 1 # Bowel Movements 0 - Exam PHYSICAL EXAMINATION: HEENT: Head is atraumatic, normocephalic. Pupils equal, round. Neck is supple. There is no elevated jugular venous pressure. HEART EXAMINATION: Heart S1, S2 normal. No murmur or gallop heard. CHEST EXAMINATION: Lungs are clear to auscultation and precussion. No chest wall tenderness is noted on palpation or with deep breathing. ABDOMEN: Soft, nontender. Bowel sounds are heard. No organomegaly noted. EXTREMITIES: 2+ peripheral pulses with no evidence of peripheral edema and no calf tenderness noted. Right radial site clean and dry, good distal pulse. NEUROLOGIC patient is awake, alert and oriented -3. . - Labs CBC & Chem 7: 09/11/17 06:40 09/10/17 06:01 Labs: Abnormal Lab Results - Last 24 Hours (Table) 09/10/17 09/11/17 Range/Units 16:46 11:35 POC Glucose (mg/dL) 175 H 106 H (75-99) mg/dL Microbiology - Last 24 Hours (Table) 09/05/17 14:10 Blood Culture - Preliminary Blood No Growth after 120 hours Assessment and Plan Plan: Assessment and plan #1 pneumonia, improving #2 non-ST elevation myocardial infarction Plan Cardiac catheterization performed yesterday revealed normal coronary arteries with mild impairment of the left ventricular systolic function. From cardiology 's perspective, patient may be able to be discharged home today. We will make her a follow-up appointment to see Dr. Chandler in the office post discharge. DNP note has been reviewed, I agree with a documented findings and plan of care. Patient was seen and examined.
--- NOTE | 2017-09-11 22:12 | DS ---
DISCHARGE SUMMARY DATE OF SERVICE: 09/11/2017 FINAL DIAGNOSES: 1. Chronic obstructive pulmonary disease, acute exacerbation, with possible bilateral bronchopneumonia. 2. Acute [id number] myocardial infarction, status post cardiac catheterization showing normal coronary arteries with a mildly impaired left ventricular function with segmental wall abnormalities. 3. Acute urinary tract infection. 4. Thrombocytopenia. DISCHARGE DISPOSITION: The patient will be discharged in stable condition with guarded prognosis. HISTORY OF PRESENT ILLNESS: This 82-year-old woman with a past medical history of multiple medical problems was treated symptomatically with antibiotics for pneumonia. Troponins were elevated and cardiac cath findings were normal. Patient was treated medically. On exam, vitals are stable. CARDIOVASCULAR SYSTEM: S1, S2 muffled. ABDOMEN: Soft. NERVOUS SYSTEM: No focal deficit. DISCHARGE ADVICE AND MEDICATIONS: 1. Diet is cardiac. 2. Activity limited until followup. 3. Follow up with Dr. Maza as advised. 4. Follow up with Dr. Wolfe as recommended. 5. Follow up with Cardiology as recommended. 6. Albuterol 2 puffs q.6 p.r.n. 7. Aspirin 81 mg p.o. daily. 8. Zithromax 500 mg p.o. daily for 5 days. 9. Tessalon Perles 100 mg p.o. t.i.d. 10.Symbicort 160/4.5 two puffs b.i.d. 11.Calcium with vitamin D one p.o. t.i.d. 12.Celexa 10 mg at bedtime. 13.Claritin 10 mg daily. 14.Lopressor 25 mg p.o. b.i.d. 15.Singulair 10 mg at bedtime. 16.Multivitamins 1 p.o. daily. 17.Protonix 40 mg b.i.d. 18.Prednisone taper: 40 mg daily for 3 days; 30 mg daily for 3 days; 20 mg daily for 3 days; 10 mg daily for 3 days. 19.Zocor 20 mg at bedtime. 20.Spiriva 1 puff daily. MMODL / IJN: [id number] /
== END 2017-09-11 16:16 | disposition home or self-care (01) | DRG 280 ==
LOC: EC 14:02 → 6SEL 15:14
PROVIDERS: ADMIT Hospitalist; ATTEND Hospitalist
PROC: B2151ZZ Fluoroscopy of Left Heart using Low Osmolar Contrast (ICD-10-PCS; principal; 2017-09-10 09:00)
PROC: 4A023N7 Measurement of Cardiac Sampling and Pressure, Left Heart, Percutaneous Approach (ICD-10-PCS; principal; 2017-09-10 09:00)
PROC: B2111ZZ Fluoroscopy of Multiple Coronary Arteries using Low Osmolar Contrast (ICD-10-PCS; principal; 2017-09-10 09:00)
DX: I21.4 Non-ST elevation (NSTEMI) myocardial infarction (principal); J18.0 Bronchopneumonia, unspecified organism; D69.6 Thrombocytopenia, unspecified; I27.20 Pulmonary hypertension, unspecified; J44.0 Chronic obstructive pulmonary disease with (acute) lower respiratory infection; I08.1 Rheumatic disorders of both mitral and tricuspid valves; J44.1 Chronic obstructive pulmonary disease with (acute) exacerbation; N39.0 Urinary tract infection, site not specified; E78.5 Hyperlipidemia, unspecified; J30.9 Allergic rhinitis, unspecified; K21.9 Gastro-esophageal reflux disease without esophagitis; K22.2 Esophageal obstruction; M19.90 Unspecified osteoarthritis, unspecified site; M47.812 Spondylosis without myelopathy or radiculopathy, cervical region; Z96.1 Presence of intraocular lens; Z79.51 Long term (current) use of inhaled steroids; Z79.52 Long term (current) use of systemic steroids; Z79.82 Long term (current) use of aspirin; Z79.899 Other long term (current) drug therapy; Z85.828 Personal history of other malignant neoplasm of skin; Z87.01 Personal history of pneumonia (recurrent); Z87.891 Personal history of nicotine dependence; Z90.710 Acquired absence of both cervix and uterus; Z98.42 Cataract extraction status, left eye; Z98.41 Cataract extraction status, right eye; Z88.5 Allergy status to narcotic agent; Z88.0 Allergy status to penicillin; Z88.2 Allergy status to sulfonamides; Z91.030 Bee allergy status
CPT/HCPCS: 36415; 71046; 80048; 80053; 80061; 81001; 83036; 83605; 84484; 85025; 85610; 85730; 87040; 87086; 87502; 93005; 93306; 93458; 94640; 94760; 96365; 96375; 99285

== ENCOUNTER → 2017-09-16 | Outpatient (CLI) | payer MEDICARE, BC ==
[2017-09-16 16:27] LABS: Basophils % (A) 0 %; Eosinophils % (A) 0 %; HCT 35.7 % (34.0-46.0); HGB 11.7 gm/dL (11.4-16.0); Lymphocytes # (A) 0.7 k/uL (1.0-4.8); Lymphocytes % (A) 6 %; MCH 29.4 pg (25.0-35.0); MCHC 32.7 g/dL (31.0-37.0); Monocytes # (A) 0.4 k/uL (0-1.0); Monocytes % (A) 3 %; Neutrophils # (A) 11.1 k/uL (1.3-7.7); Neutrophils % (A) 91 %; Platelet Count 319 k/uL (150-450); RBC 3.96 m/uL (3.80-5.40); RDW 13.2 % (11.5-15.5); WBC 12.2 k/uL (3.8-10.6)
[2017-09-16 16:39] LABS: Calcium 8.9 mg/dL (8.4-10.2); Potassium 4.5 mmol/L (3.5-5.1)
== END | disposition home or self-care (01) ==
LOC: LABWHC1 15:35
PROVIDERS: ATTEND Nurse Practitioner
DX: I21.4 Non-ST elevation (NSTEMI) myocardial infarction (principal)
CPT/HCPCS: 36415; 80048; 85025

== ENCOUNTER → 2017-12-26 | Outpatient (CLI) | payer MEDICARE, BC ==
[2017-12-26 11:17] VITALS: BP 116/63; PULSE 65; RESP 18; TEMP 98.3
== END | disposition home or self-care (01) ==
LOC: PROCWHC3 10:59
PROVIDERS: ATTEND Family Medicine
DX: M81.0 Age-related osteoporosis without current pathological fracture (principal)
CPT/HCPCS: 96372; J0897

== ENCOUNTER → 2018-06-30 | Outpatient (CLI) | payer MEDICARE, BC ==
[~2018-06-30] MED LIST changes: +DENOSUMAB 60 MG/ML 1 ML SYRINGE SQ NR; -DENOSUMAB 60 MG/ML 1 ML SYRINGE SQ ONE
[2018-06-30 11:28] VITALS: BP 128/72; PULSE 59; RESP 18; TEMP 97.6
== END | disposition home or self-care (01) ==
LOC: PROCWHC3 10:53
PROVIDERS: ATTEND Family Medicine
DX: M81.0 Age-related osteoporosis without current pathological fracture (principal)
CPT/HCPCS: 96372; J0897

== ENCOUNTER → 2018-12-18 | Outpatient (CLI) | payer MEDICARE, BC ==
--- NOTE | 2018-12-18 14:52 | MM ---
Reason for exam: additional evaluation requested from prior study. Last mammogram was performed 1 year and 10 months ago. History: Patient is postmenopausal, has history of high-risk lesion on a previous biopsy at age 80, and history of other cancer. High risk US breast localization LT, January 03, 2016. Benign US biopsy breast VAD LT of the left breast, December 12, 2015. Benign right mammotome panel of the right breast, September 30, 2006. Benign excisional biopsy of the left breast, 1969. Benign excisional biopsy of the right breast, 1969. Physical Findings: Nurse did not find any significant physical abnormalities on exam. MG 3D Diag Mammo W/Cad BALDEMAR Bilateral CC and MLO view(s) were taken. Prior study comparison: February 28, 2017, bilateral MG 3d diag mammo w/cad BALDEMAR. January 03, 2016, left breast MG diagnostic mammo LT wo CAD. The breast tissue is heterogeneously dense. This may lower the sensitivity of mammography. Benign appearing bilateral calcifications. Post excisional biopsy change on the left. These results were verbally communicated with the patient and result sheet given to the patient on 12/18/18. ASSESSMENT: Benign, BI-RAD 2 RECOMMENDATION: Routine screening mammogram of both breasts in 1 year.
== END | disposition home or self-care (01) ==
LOC: RADMAMWWP 13:29
PROVIDERS: ATTEND Family Medicine
DX: R92.8 Other abnormal and inconclusive findings on diagnostic imaging of breast (principal)
CPT/HCPCS: 77062; 77066

== ENCOUNTER → 2019-01-06 | Outpatient (CLI) | payer MEDICARE, BC ==
[~2019-01-06] MED LIST changes: -DENOSUMAB 60 MG/ML 1 ML SYRINGE SQ NR; +DENOSUMAB 60 MG/ML 1 ML SYRINGE SQ ONE
[2019-01-06 11:38] VITALS: BP 131/80; PULSE 56; RESP 16; TEMP 98.2
== END | disposition home or self-care (01) ==
LOC: PROCWHC3 11:15
PROVIDERS: ATTEND Family Medicine
DX: M81.0 Age-related osteoporosis without current pathological fracture (principal)
CPT/HCPCS: 96372; J0897

== ENCOUNTER 2019-04-26 15:41 | Emergency (ER) | payer MEDICARE, BC ==
[2019-04-26 15:48] VITALS: RESP 18; TEMP 97.9
[2019-04-26 17:49] LABS: Basophils % (A) 0 %; Eosinophils # (A) 0.1 k/uL (0-0.7); Eosinophils % (A) 2 %; HCT 38.4 % (34.0-46.0); HGB 12.9 gm/dL (11.4-16.0); Lymphocytes # (A) 1.5 k/uL (1.0-4.8); Lymphocytes % (A) 24 %; MCH 32.4 pg (25.0-35.0); MCHC 33.6 g/dL (31.0-37.0); MCV 96.3 fL (80.0-100.0); Mean Platelet Volume 5.9; Monocytes # (A) 0.4 k/uL (0-1.0); Monocytes % (A) 6 %; Neutrophils % (A) 65 %; Platelet Count 199 k/uL (150-450); RBC 3.99 m/uL (3.80-5.40); WBC 6.1 k/uL (3.8-10.6)
[2019-04-26 17:57] LABS: INR 0.9 (<1.2); Partial Thromboplastin Time 22.4 sec (22.0-30.0); Prothrombin Time 9.7 sec (9.0-12.0)
--- NOTE | 2019-04-26 17:58 | XR ---
EXAMINATION TYPE: XR chest 2V DATE OF EXAM: 04/26/2019 COMPARISON: 09/06/2017 HISTORY: Chronic cough TECHNIQUE: Frontal and lateral views of the chest are obtained. FINDINGS: There is no focal air space opacity, pleural effusion, or pneumothorax seen. Emphysematou s changes are seen in the lungs with biapical lucency and pulmonary hyperinflation. The cardiac silho uette size is mildly enlarged. The osseous structures are intact. Moderate degenerative changes of the spine and diffuse osseous demineralization. IMPRESSION: No acute cardiopulmonary process. Underlying COPD.
[2019-04-26 17:59] LABS: Albumin 4.2 g/dL (3.5-5.0); Calcium 9.7 mg/dL (8.4-10.2); Magnesium 2.1 mg/dL (1.6-2.3); Potassium 4.4 mmol/L (3.5-5.1); Total Bilirubin 0.2 mg/dL (0.2-1.3); Total Protein 6.8 g/dL (6.3-8.2)
[2019-04-26] MEDS ORDERED: ALBUTEROL NEBULIZED 2.5 MG/3 ML INHALATION STA (18:17)
[2019-04-26] MEDS ORDERED: IPRATROPIUM 0.5 MG/2.5 ML NEBU INHALATION STA (18:17)
[2019-04-26] MEDS ORDERED: predniSONE 20 MG TAB PO STA (18:17)
[2019-04-26 19:43] VITALS: BP 138/69
[2019-04-26 19:49] VITALS: PULSE 70
--- NOTE | 2019-04-26 19:54 | ED ---
URI HPI - General Chief Complaint: Upper Respiratory Infection Stated Complaint: Cough Time Seen by Provider: 04/26/19 16:53 Source: patient Mode of arrival: ambulatory Limitations: no limitations - History of Present Illness Initial Comments: Patient complains of a cough and shortness of breath. She has no chest pain or pressure. She has no nausea or vomiting. She has no diaphoresis. She has no lightheadedness or dizziness. She has no focal weakness. She has no pain or swelling in the arms or legs. She has no palpitations. She has no exertional chest pain or pressure or shortness of breath. She has a cough which is nonproductive. She has no weakness. She has had no sick contacts. She has had no travel. - Related Data Home Medications Medication Instructions Recorded Confirmed Aspirin 81 mg PO DAILY 01/25/15 01/06/19 Budesonide-Formot 160-4.5 Mcg 2 puff INHALATION RT-BID 01/25/15 01/06/19 [Symbicort 160-4.5 Mcg Inhaler] EPINEPHrine [Epipen 2-Igor] 0.3 mg IM ONCE PRN 01/25/15 01/06/19 Simvastatin [Zocor] 20 mg PO HS 01/25/15 01/06/19 Tiotropium 18 Mcg/Puff [Spiriva] 1 cap INHALATION RT-DAILY 11/01/15 01/06/19 Citalopram Hydrobromide [CeleXA] 10 mg PO HS 05/27/17 01/06/19 Sodium Chloride 0.65% Nasal [Deep 2 spray NASAL BID 05/27/17 01/06/19 Sea (Saline)] Acetaminophen Tab [Tylenol Tab] 500 mg PO Q6HR PRN 01/06/19 01/06/19 Calcium Carbonate [Calcium] 600 mg PO DAILY 01/06/19 01/06/19 Equate Eye Drops 01/06/19 Fexofenadine/Pseudoephedrine 1 each PO DIRECTED PRN 01/06/19 01/06/19 [Cherelle-D 12 Hour Tablet] Montelukast [Singulair] 10 mg PO DAILY 01/06/19 01/06/19 Omeprazole [PriLOSEC] 10 mg PO DAILY 01/06/19 01/06/19 Sennosides/Docusate Sodium [Cassidy 1 tab PO DIRECTED PRN 01/06/19 01/06/19 Colace] Previous Rx's Medication Instructions Recorded predniSONE 50 mg PO DAILY #3 tab 04/26/19 Allergies Allergy/AdvReac Type Severity Reaction Status Date / Time codeine Allergy Unknown Nausea & Verified 04/26/19 15:43 Vomiting Penicillins Allergy Unknown Rash/Hives, Verified 04/26/19 15:43 Throat Swelling venom-honey bee Allergy Unknown Anaphylaxis Verified 04/26/19 15:43 [bee venom (honey bee)] Sulfa (Sulfonamide AdvReac Unknown Nausea Verified 04/26/19 15:43 Antibiotics) Review of Systems ROS Statement: Those systems with pertinent positive or pertinent negative responses have been documented in the HPI. ROS Other: All systems not noted in ROS Statement are negative. Past Medical History Past Medical History: Cancer, COPD, Myocardial Infarction ([place]), Osteoarthritis (OA), Pneumonia Additional Past Medical History / Comment(s): HX OF SKIN CANCER, BRONCHITIS, STATES PNEUMONIA IN NOVEMBER 2015, FEELS LIKE SOMETHING IN HER THROAT-STATES HX OF EGD WITH DILATION. History of Any Multi-Drug Resistant Organisms: None Reported Past Surgical History: Hysterectomy, Tonsillectomy Additional Past Surgical History / Comment(s): rotator cuff rt, lt ankle with quan, breast cyst removed, BREAST BIOPSY, EGD WITH DILATION. Past Anesthesia/Blood Transfusion Reactions: No Reported Reaction Additional Past Anesthesia/Blood Transfusion Reaction / Comment(s): PT DOES NOT KNOW FAMILY HX (FOSTER CHILD) Past Psychological History: No Psychological Hx Reported Smoking Status: Former smoker Past Alcohol Use History: None Reported Past Drug Use History: None Reported - Past Family History Mother Family Medical History: No Reported History Additional Family Medical History / Comment(s): STATES UNKNOWN FAMILY HX. General Exam Limitations: no limitations General appearance: alert, in no apparent distress Head exam: Present: atraumatic, normocephalic, normal inspection Eye exam: Present: normal appearance, PERRL, EOMI. Absent: scleral icterus, conjunctival injection, periorbital swelling ENT exam: Present: normal exam, mucous membranes moist Neck exam: Present: normal inspection. Absent: tenderness, meningismus, lymphadenopathy Respiratory exam: Present: wheezes. Absent: respiratory distress, rales, rh onchi, stridor Cardiovascular Exam: Present: regular rate, normal rhythm, normal heart sounds. Absent: systolic murmur, diastolic murmur, rubs, gallop, clicks GI/Abdominal exam: Present: soft, normal bowel sounds. Absent: distended, tenderness, guarding, rebound, rigid Extremities exam: Present: normal inspection, full ROM, normal capillary refill. Absent: tenderness, pedal edema, joint swelling, calf tenderness Back exam: Present: normal inspection Neurological exam: Present: alert, oriented X3, CN II-XII intact Psychiatric exam: Present: normal affect, normal mood Skin exam: Present: warm, dry, intact, normal color. Absent: rash Course Vital Signs 04/26/19 04/26/19 04/26/19 15:44 17:59 18:39 Temperature 97.9 F Pulse Rate 66 63 60 Respiratory 18 18 Rate Blood Pressure 134/77 133/74 O2 Sat by Pulse 96 98 Oximetry 04/26/19 04/26/19 04/26/19 18:51 19:21 19:42 Temperature Pulse Rate 60 68 85 Respiratory 18 Rate Blood Pressure 138/69 O2 Sat by Pulse 100 Oximetry 04/26/19 19:48 Temperature Pulse Rate 70 Respiratory Rate Blood Pressure O2 Sat by Pulse Oximetry Medical Decision Making - Medical Decision Making Patient presents with shortness of breath. She is given breathing treatments. She is feeling better. She has no pneumonia. Her EKG is unremarkable. Laboratory studies are all normal. She is stable for discharge. - Lab Data Result diagrams: 04/26/19 17:37 04/26/19 17:37 Lab Results 04/26/19 04/26/19 04/26/19 Range/Units 17:37 17:37 17:37 WBC 6.1 (3.8-10.6) k/uL RBC 3.99 (3.80-5.40) m/uL Hgb 12.9 (11.4-16.0) gm/dL Hct 38.4 (34.0-46.0) % MCV 96.3 (80.0-100.0) fL MCH 32.4 (25.0-35.0) pg MCHC 33.6 (31.0-37.0) g/dL RDW 13.0 (11.5-15.5) % Plt Count 199 (150-450) k/uL Neutrophils % 65 % Lymphocytes % 24 % Monocytes % 6 % Eosinophils % 2 % Basophils % 0 % Neutrophils # 4.0 (1.3-7.7) k/uL Lymphocytes # 1.5 (1.0-4.8) k/uL Monocytes # 0.4 (0-1.0) k/uL Eosinophils # 0.1 (0-0.7) k/uL Basophils # 0.0 (0-0.2) k/uL PT (9.0-12.0) sec INR (<1.2) APTT (22.0-30.0) sec Sodium 141 (137-145) mmol/L Potassium 4.4 (3.5-5.1) mmol/L Chloride 106 (98-107) mmol/L Carbon Dioxide 26 (22-30) mmol/L Anion Gap 9 mmol/L BUN 40 H (7-17) mg/dL Creatinine 1.36 H (0.52-1.04) mg/dL Est GFR (CKD-EPI)AfAm 42 (>60 ml/min/1.73 sqM) Est GFR (CKD-EPI)NonAf 36 (>60 ml/min/1.73 sqM) Glucose 110 H (74-99) mg/dL Calcium 9.7 (8.4-10.2) mg/dL Magnesium 2.1 (1.6-2.3) mg/dL Total Bilirubin 0.2 (0.2-1.3) mg/dL AST 21 (14-36) U/L ALT 16 (9-52) U/L Alkaline Phosphatase 58 (38-126) U/L Troponin I (0.000-0.034) ng/mL NT-Pro-B Natriuret Pep 785 pg/mL Total Protein 6.8 (6.3-8.2) g/dL Albumin 4.2 (3.5-5.0) g/dL 04/26/19 04/26/19 Range/Units 17:37 17:37 WBC (3.8-10.6) k/uL RBC (3.80-5.40) m/uL Hgb (11.4-16.0) gm/dL Hct (34.0-46.0) % MCV (80.0-100.0) fL MCH (25.0-35.0) pg MCHC (31.0-37.0) g/dL RDW (11.5-15.5) % Plt Count (150-450) k/uL Neutrophils % % Lymphocytes % % Monocytes % % Eosinophils % % Basophils % % Neutrophils # (1.3-7.7) k/uL Lymphocytes # (1.0-4.8) k/uL Monocytes # (0-1.0) k/uL Eosinophils # (0-0.7) k/uL Basophils # (0-0.2) k/uL PT 9.7 (9.0-12.0) sec INR 0.9 (<1.2) APTT 22.4 (22.0-30.0) sec Sodium (137-145) mmol/L Potassium (3.5-5.1) mmol/L Chloride (98-107) mmol/L Carbon Dioxide (22-30) mmol/L Anion Gap mmol/L BUN (7-17) mg/dL Creatinine (0.52-1.04) mg/dL Est GFR (CKD-EPI)AfAm (>60 ml/min/1.73 sqM) Est GFR (CKD-EPI)NonAf (>60 ml/min/1.73 sqM) Glucose (74-99) mg/dL Calcium (8.4-10.2) mg/dL Magnesium (1.6-2.3) mg/dL Total Bilirubin (0.2-1.3) mg/dL AST (14-36) U/L ALT (9-52) U/L Alkaline Phosphatase (38-126) U/L Troponin I <0.012 (0.000-0.034) ng/mL NT-Pro-B Natriuret Pep pg/mL Total Protein (6.3-8.2) g/dL Albumin (3.5-5.0) g/dL 04/26/19 19:52 Twelve-lead EKG shows ventricular rate 59 bpm, normal MD interval and QRS complexes, no ST elevation or depression, interpreted by me as sinus rhythm. Disposition Clinical Impression: COPD (chronic obstructive pulmonary disease) Disposition: HOME SELF-CARE Condition: Good Prescriptions: predniSONE 50 mg PO DAILY #3 tab Is patient prescribed a controlled substance at d/c from ED?: No Referrals: Antony Wolfe DO [Primary Care Provider] - 1-2 days
== END 2019-04-26 20:29 | disposition home or self-care (01) ==
LOC: EC 15:41
DX: J44.9 Chronic obstructive pulmonary disease, unspecified (principal); I25.2 Old myocardial infarction; Z79.82 Long term (current) use of aspirin; Z79.51 Long term (current) use of inhaled steroids; Z79.899 Other long term (current) drug therapy; Z88.0 Allergy status to penicillin; Z88.2 Allergy status to sulfonamides; Z88.5 Allergy status to narcotic agent; Z91.030 Bee allergy status; Z87.891 Personal history of nicotine dependence; Z85.828 Personal history of other malignant neoplasm of skin
CPT/HCPCS: 36415; 94644; 83880; 80053; 83735; 84484; 85025; 85610; 85730; 71046; 99284; J7512

== ENCOUNTER → 2019-10-20 | Outpatient (CLI) | payer MEDICARE, BC ==
[2019-10-20 17:48] LABS: African American GFR (CKD) 48.1 (60.0-200.0); Albumin 4.3 g/dL (3.80-4.90); Albumin/Globulin Ratio 2.26 (1.60-3.17); Anion Gap 7.3 mmol/L (4.00-12.00); BUN/Creat Ratio 28.33 Ratio (12.00-20.00); Calcium 9.6 mg/dL (8.7-10.3); Carbon Dioxide 28.7 mmol/L (21.6-31.8); Chol/HDL Ratio 2.36; Globulin 1.9 g/dL (1.6-3.3); LDL Cholesterol,Calculated 78.4 mg/dL (0.0-131.0); Non-African American GFR(CKD) 41.5 (60.0-200.0); Potassium 4.9 mmol/L (3.5-5.5); Total Bilirubin 0.5 mg/dL (0.3-1.2); Total Protein 6.2 g/dL (6.2-8.2); VLDL Calculation 22.6 mg/dL (5.00-40.00)
== END | disposition home or self-care (01) ==
LOC: LABWHC1 08:35
PROVIDERS: ATTEND Internal Medicine Interventional Cardiology
DX: E78.2 Mixed hyperlipidemia (principal)
CPT/HCPCS: 36415; 80053; 80061

== ENCOUNTER 2019-12-08 14:53 | Emergency (ER) | payer MEDICARE, BC ==
[2019-12-08 15:02] VITALS: RESP 16; TEMP 98.2
--- NOTE | 2019-12-08 15:24 | ED ---
Fall HPI - General Chief Complaint: Fall Stated Complaint: Fall, R Wrist Injury Time Seen by Provider: 12/08/19 15:04 Source: patient, RN notes reviewed Mode of arrival: wheelchair Limitations: no limitations - History of Present Illness Initial Comments: 84-year-old female presents emergency Department chief complaint of a fall. Patient was attempting to walk back to the house to get a cane for her which she tripped on a crack in the road. Patient has a minor skin tears to her hands, wrists primarily complains of right wrist pain and mild facial pain no headache no dizziness no neck pain denies any loss conscious. Patient denies any blood thinners. - Related Data Home Medications Medication Instructions Recorded Confirmed Budesonide-Formot 160-4.5 Mcg 2 puff INHALATION RT-BID 01/25/15 12/08/19 [Symbicort 160-4.5 Mcg Inhaler] Simvastatin [Zocor] 20 mg PO HS 01/25/15 12/08/19 Tiotropium 18 Mcg/Puff [Spiriva] 1 cap INHALATION RT-DAILY@119911/01/15 12/08/19 Citalopram Hydrobromide [CeleXA] 10 mg PO HS 05/27/17 12/08/19 Acetaminophen Tab [Tylenol Tab] 500 mg PO QID 01/06/19 12/08/19 Calcium Carbonate [Calcium] 600 mg PO BID 01/06/19 12/08/19 Montelukast [Singulair] 10 mg PO DAILY@1200 01/06/19 12/08/19 Aspirin EC [Ecotrin Low Dose] 81 mg PO DAILY@119912/08/19 12/08/19 Metoprolol Tartrate [Lopressor] 25 mg PO BID 12/08/19 12/08/19 Multivit-Min/Iron/Folic/Lutein 1 tab PO TID 12/08/19 12/08/19 [Centrum Silver Women Tablet] Allergies Allergy/AdvReac Type Severity Reaction Status Date / Time codeine Allergy Unknown Nausea & Verified 12/08/19 15:03 Vomiting Penicillins Allergy Unknown Rash/Hives, Verified 12/08/19 15:03 Throat Swelling venom-honey bee Allergy Unknown Anaphylaxis Verified 12/08/19 15:03 [bee venom (honey bee)] Sulfa (Sulfonamide AdvReac Unknown Nausea Verified 12/08/19 15:03 Antibiotics) Review of Systems ROS Statement: Those systems with pertinent positive or pertinent negative responses have been documented in the HPI. ROS Other: All systems not noted in ROS Statement are negative. Past Medical History Past Medical History: Cancer, COPD, Myocardial Infarction ([place]), Osteoarthritis (OA), Pneumonia Additional Past Medical History / Comment(s): HX OF SKIN CANCER, BRONCHITIS, STATES PNEUMONIA IN NOVEMBER 2015, FEELS LIKE SOMETHING IN HER THROAT-STATES HX OF EGD WITH DILATION. History of Any Multi-Drug Resistant Organisms: None Reported Past Surgical History: Hysterectomy, Tonsillectomy Additional Past Surgical History / Comment(s): rotator cuff rt, lt ankle with quan, breast cyst removed, BREAST BIOPSY, EGD WITH DILATION. Past Anesthesia/Blood Transfusion Reactions: No Reported Reaction Additional Past Anesthesia/Blood Transfusion Reaction / Comment(s): PT DOES NOT KNOW FAMILY HX (FOSTER CHILD) Past Psychological History: No Psychological Hx Reported Past Alcohol Use History: None Reported Past Drug Use History: None Reported - Past Family History Mother Family Medical History: No Reported History Additional Family Medical History / Comment(s): STATES UNKNOWN FAMILY HX. General Exam Limitations: no limitations General appearance: alert, in no apparent distress Head exam: Present: atraumatic, normocephalic, normal inspection Eye exam: Present: normal appearance, PERRL, EOMI, periorbital swelling, periorbital tenderness, other (Ecchymosis, abrasion and swelling of the right maxillary right periorbital region). Absent: scleral icterus, conjunctival injection ENT exam: Present: normal exam, normal oropharynx, mucous membranes moist, TM's normal bilaterally Neck exam: Present: normal inspection, full ROM. Absent: tenderness, meningismus, lymphadenopathy Respiratory exam: Present: normal lung sounds bilaterally. Absent: respiratory distress, wheezes, rales, rhonchi, stridor Cardiovascular Exam: Present: regular rate, normal rhythm, normal heart sounds. Absent: systolic murmur, diastolic murmur, rubs, gallop, clicks Extremities exam: Present: other (Skin tear in the left thumb, right medial aspect of the hand, there is tenderness over the right wrist with mild swelling no ecchymosis neurovascular intact remaining extremity exam within normal limits) Back exam: Present: full ROM. Absent: tenderness Neurological exam: Present: alert, oriented X3, reflexes normal. Absent: motor sensory deficit Skin exam: Present: warm, dry, normal color. Absent: rash Course Vital Signs 12/08/19 14:58 Temperature 98.2 F Pulse Rate 65 Respiratory 16 Rate Blood Pressure 141/72 O2 Sat by Pulse 97 Oximetry Medical Decision Making - Medical Decision Making 84-year-old female presented for fall CT of the brain C-spine and facial bones are negative. Patient might her right wrist pain which is negative for acute fracture. She has some skin abrasions, skin tears. Patient tetanus is up-to-date. No other complaints patient we discharged stable condition. Disposition Clinical Impression: Fall, Skin tear, Facial contusion, Right wrist sprain Disposition: HOME SELF-CARE Condition: Stable Instructions (If sedation given, give patient instructions): Wrist Sprain (ED), Facial Contusion (ED) Additional Instructions: Please return to the Emergency Department if symptoms worsen or any other concerns. Is patient prescribed a controlled substance at d/c from ED?: No Referrals: Antony Wolfe DO [Primary Care Provider] - 1-2 days Time of Disposition: 16:09
--- NOTE | 2019-12-08 15:54 | CT ---
EXAMINATION TYPE: CT brain cspine wo con, CT facial bones wo con DATE OF EXAM: 12/08/2019 COMPARISON: CT cervical spine 01/02/2017 HISTORY: fall with right side periorbital contusion CT DLP: 972.7 (accession [id number]), 744.9 (accession [id number]) mGycm Automated exposure control for dose reduction was used. TECHNIQUE: CT scan of the head and cervical spine facial bones are performed without contrast. FINDINGS: There is no acute intracranial hemorrhage, mass effect, or midline shift identified. The ventricles and sulci are within normal limits in size. The globes are intact and the visualized sin uses are clear. Periventricular white matter shows patchy low attenuation. Cortical atrophy. Cervical spine is visualized in its entirety from C1 through upper thoracic levels and demonstrates a natomic alignment without evidence of acute fracture or dislocation. Prevertebral soft tissue appear s within normal limits. The C1-C2 articulation is for extensive arthropathy change. There is multil evel spondylosis, loss of disc height at intervertebral levels, descending aorta is ectatic at 3.2 cm Ostiomeatal units are patent. Temporomandibular joints are intact, there is degenerative change. Brad tory ossicles are normal as visualized, there is no erosion of the scutum. No thickening of the tympa ethan membranes. External auditory canals are patent. Orbits are intact. No evident air-fluid level to suggest acute hemorrhage the paranasal sinuses. Suspect some chronic sinusitis, is calcification with in the left mastoid sinus, consider superimposed fungal infection. There is some mucoperiosteal thick ening present. IMPRESSION: 1. There is no acute fracture or dislocation evident in the cervical spine. 2. No acute intracranial hemorrhage, mass effect, or midline shift is seen. 3. Aortic aneurysm.
--- NOTE | 2019-12-08 16:01 | XR ---
Right wrist HISTORY: Trauma and pain 4 views the right wrist, correlation prior exam 03/30/2013 Bone mineralization is reduced. There is loss of joint space at the intercarpal joints, radiocarpal j oint, is remodeling of the radiocarpal joint. Small ossific density at the level of the radial styloi d is well-corticated and not acute. Alignment is maintained. IMPRESSION: No acute fracture or dislocation.
[2019-12-08] MEDS ORDERED: DIPH,PERTUS(ACELL)TETVAC-LF 0.5 ML VIAL IM ONE (16:15)
[2019-12-08 16:25] VITALS: BP 149/72; PULSE 62
== END 2019-12-08 16:34 | disposition home or self-care (01) ==
LOC: EC 14:53
DX: S63.501A Unspecified sprain of right wrist, initial encounter (principal); S00.83XA Contusion of other part of head, initial encounter; S61.012A Laceration without foreign body of left thumb without damage to nail, initial encounter; J44.9 Chronic obstructive pulmonary disease, unspecified; M19.90 Unspecified osteoarthritis, unspecified site; I25.2 Old myocardial infarction; Z79.899 Other long term (current) drug therapy; Z79.82 Long term (current) use of aspirin; Z79.51 Long term (current) use of inhaled steroids; Z88.5 Allergy status to narcotic agent; Z88.0 Allergy status to penicillin; Z91.030 Bee allergy status; Z88.2 Allergy status to sulfonamides; Z85.828 Personal history of other malignant neoplasm of skin; Z23 Encounter for immunization; W01.0XXA Fall on same level from slipping, tripping and stumbling without subsequent striking against object, initial encounter; Y93.01 Activity, walking, marching and hiking; Y92.410 Unspecified street and highway as the place of occurrence of the external cause
CPT/HCPCS: 70450; 70486; 72125; 90471; 90715; 99284

== ENCOUNTER → 2020-01-20 | Outpatient (CLI) | payer MEDICARE, BC ==
[2020-01-20 11:33] VITALS: BP 139/82; PULSE 54; RESP 16; TEMP 97.5
== END | disposition home or self-care (01) ==
LOC: PROCWHC3 11:21
PROVIDERS: ATTEND Family Medicine
DX: M81.0 Age-related osteoporosis without current pathological fracture (principal)
CPT/HCPCS: 96372; J0897

== ENCOUNTER → 2020-07-21 | Outpatient (CLI) | payer MEDICARE, BC ==
[~2020-07-21] MED LIST changes: +DENOSUMAB 60 MG/ML 1 ML SYRINGE SQ NR; -DENOSUMAB 60 MG/ML 1 ML SYRINGE SQ ONE
[2020-07-21 11:25] VITALS: BP 145/73; PULSE 54; RESP 16; TEMP 97.7
== END | disposition home or self-care (01) ==
LOC: PROCWHC3 11:12
PROVIDERS: ATTEND Family Medicine
DX: M81.0 Age-related osteoporosis without current pathological fracture (principal)
CPT/HCPCS: 96372; J0897

== ENCOUNTER 2020-08-28 08:00 | Emergency (ER) | payer MEDICARE, BC ==
[2020-08-28 08:06] VITALS: BP 118/71; PULSE 89; RESP 18; TEMP 99.7
--- NOTE | 2020-08-28 09:04 | XR ---
EXAMINATION TYPE: XR chest 1V portable DATE OF EXAM: 08/28/2020 COMPARISON: 06/27/2018 INDICATION: Upper respiratory tract infection cough and congestion TECHNIQUE: Single frontal view of the chest is obtained. FINDINGS: The heart size is upper limits of normal. The pulmonary vasculature is normal. The lungs are clear. No suspicious infiltrates are evident. Follow-up can be performed as clinically indicated IMPRESSION: 1. No acute pulmonary process.
--- NOTE | 2020-08-28 09:28 | ED ---
General Adult HPI - General Chief complaint: Upper Respiratory Infection Stated complaint: cough, diarrhea Time Seen by Provider: 08/28/20 08:18 Source: patient Mode of arrival: ambulatory Limitations: physical limitation - History of Present Illness Initial comments: Dictation was produced using [employer] dictation software. please excuse any grammatical, word or spelling errors. This patient was cared for during a federal and state declared state of emergency secondary to Covid 19 Chief Complaint: 85-year-old female with past medical history of COPD DC, osteoporosis arthritis presents emergency department for sinus infections History of Present Illness: Patient is a 85-year-old female she states she's been having 2-3 weeks of sinus infections. Patient states that she has seen her primary care physician about this. Patient states that her symptoms have been chronic. She also feels like she's been having increasing joint pain. She does not know exactly when her symptoms began however she does strongly feel that her symptoms have an ongoing for more than 10 days. Denies any fevers. She does feel some mild dyspnea when she ambulates. She has not been exposed to anybody with obvious URI symptoms. She does have a dry cough. The ROS documented in this emergency department record has been reviewed and confirmed by me. Those systems with pertinent positive or negative responses have been documented in the HPI. All other systems are other negative and/or noncontributory. PHYSICAL EXAM: General Impression: Alert and oriented x3, not in acute distress HEENT: Normocephalic atraumatic, extra-ocular movements intact, pupils equal and reactive to light bilaterally, mucous membranes moist. Cardiovascular: Heart regular rate and rhythm Chest: Able to complete full sentences, no retractions, no tachypnea Abdomen: abdomen soft, non-tender, non-distended, no organomegaly Musculoskeletal: Pulses present and equal in all extremities, no peripheral edema Motor: no focal deficits noted Neurological: CN II-XII grossly intact, no focal motor or sensory deficits noted Skin: Intact with no visualized rashes Psych: Normal affect and mood ED course: 85-year-old female presents emergency department for URI symptoms. States that her symptoms have been ongoing for more than 10 days. Signs upon arrival shows temperature 99.7, 94% on room air. Patient is rotavirus positive. Chest x-ray is unremarkable. And with her pulse ox is 94-95%. Patient's well- appearing showing signs of distress. Patient will be urged. Patient told to quarantine. Advised to monitor symptoms at home and return to the emergency department if her symptoms acutely worsen. Patient is not a candidate for monoclonal antibodies due to duration of symptoms greater than 10 days. - Related Data Home Medications Medication Instructions Recorded Confirmed Budesonide-Formot 160-4.5 Mcg 2 puff INHALATION RT-BID 01/25/15 07/21/20 [Symbicort 160-4.5 Mcg Inhaler] Simvastatin [Zocor] 20 mg PO HS 01/25/15 07/21/20 Tiotropium 18 Mcg/Puff [Spiriva] 1 cap INHALATION RT-DAILY@1200 11/01/15 07/21/20 Citalopram Hydrobromide [CeleXA] 10 mg PO HS 05/27/17 07/21/20 Acetaminophen Tab [Tylenol Tab] 500 mg PO QID 01/06/19 07/21/20 Calcium Carbonate [Calcium] 600 mg PO BID 01/06/19 07/21/20 Montelukast [Singulair] 10 mg PO DAILY@1200 01/06/19 07/21/20 Aspirin EC [Ecotrin Low Dose] 81 mg PO DAILY@1200 12/08/19 07/21/20 Metoprolol Tartrate [Lopressor] 25 mg PO BID 12/08/19 07/21/20 Multivit-Min/Iron/Folic/Lutein 1 tab PO TID 12/08/19 07/21/20 [Centrum Silver Women Tablet] Allergies Allergy/AdvReac Type Severity Reaction Status Date / Time codeine Allergy Unknown Nausea & Verified 08/28/20 08:05 Vomiting Penicillins Allergy Unknown Rash/Hives, Verified 08/28/20 08:05 Throat Swelling venom-honey bee Allergy Unknown Anaphylaxis Verified 08/28/20 08:05 [bee venom (honey bee)] Sulfa (Sulfonamide AdvReac Unknown Nausea Verified 08/28/20 08:05 Antibiotics) Review of Systems ROS Statement: Those systems with pertinent positive or pertinent negative responses have been documented in the HPI. ROS Other: All systems not noted in ROS Statement are negative. Past Medical History Past Medical History: Cancer, COPD, Myocardial Infarction ([place]), Osteoarthritis (OA), Pneumonia Additional Past Medical History / Comment(s): HX OF SKIN CANCER, BRONCHITIS History of Any Multi-Drug Resistant Organisms: None Reported Past Surgical History: Hysterectomy, Tonsillectomy Additional Past Surgical History / Comment(s): rotator cuff rt, lt ankle with quan, breast cyst removed, BREAST BIOPSY, EGD WITH DILATION. Past Anesthesia/Blood Transfusion Reactions: No Reported Reaction Additional Past Anesthesia/Blood Transfusion Reaction / Comment(s): PT DOES NOT KNOW FAMILY HX (FOSTER CHILD) Past Psychological History: No Psychological Hx Reported Smoking Status: Never smoker Past Alcohol Use History: None Reported Past Drug Use History: None Reported - Past Family History Mother Family Medical History: No Reported History Additional Family Medical History / Comment(s): STATES UNKNOWN FAMILY HX. General Exam Limitations: physical limitation Course Vital Signs 08/28/20 08:02 Temperature 99.7 F H Pulse Rate 89 Respiratory 18 Rate Blood Pressure 118/71 O2 Sat by Pulse 94 L Oximetry Medical Decision Making - Lab Data Lab Results 08/28/20 Range/Units 08:50 Coronavirus (PCR) Detected A (Not Detectd) Disposition Clinical Impression: COVID-19 Disposition: HOME SELF-CARE Condition: Good Instructions (If sedation given, give patient instructions): Coronavirus Disease 2019 (COVID-19) Additional Instructions: Today you were evaluated for symptoms consistent with upper respiratory infection. Today you tested positive for Covid 19. Your are stable for discharge, however it is instructed to to seek immediate medical attention especially if you develop worsening symptoms especially respiratory distress. If possible, try to obtain a pulse oximeter and monitor your oxygen at home. In the meantime please remain in quarantine for 14 days. For any other questions please contact [facility] for here in emergency department or [facility] at [phone] Is patient prescribed a controlled substance at d/c from ED?: No Referrals: Antony Wolfe DO [Primary Care Provider] - 1-2 days Time of Disposition: 09:28
== END 2020-08-28 09:38 | disposition home or self-care (01) ==
LOC: EC 08:00
DX: U07.1 COVID-19 (principal); J44.9 Chronic obstructive pulmonary disease, unspecified; M19.90 Unspecified osteoarthritis, unspecified site; I25.2 Old myocardial infarction
CPT/HCPCS: 71045; 87635; 99283

== ENCOUNTER 2020-11-11 18:13 | Emergency (ER) | payer MEDICARE, BC ==
[2020-11-11 18:18] VITALS: TEMP 98.2
[2020-11-11] MEDS ORDERED: LIDOCAINE/EPINEPHR/TETRACAINE 5 ML BOTTLE TOPICAL ONE (18:32)
[2020-11-11] MEDS ORDERED: DIPH,PERTUS(ACELL)TETVAC-LF 0.5 ML VIAL IM ONE (18:32)
--- NOTE | 2020-11-11 18:40 | ED ---
Fall HPI - General Chief Complaint: Fall Stated Complaint: Fall/Rt Arm&Leg Injury Source: patient, RN notes reviewed Mode of arrival: ambulatory Limitations: no limitations - History of Present Illness Initial Comments: 85-year-old white female, alert and oriented 4, presents to the emergency room with complaints of slipping off of one step on the deck today which is wet. Pat ient states that this Caused an abrasion to her right forearm and skin tear to her right lower leg. Patient states that she came in because she needs a tetanus and probably stitches to her right lower leg. Patient denies any other injuries. She is ambulatory on scene. Did not hit her head. Does not take any blood thinners. She has no C-spine tenderness. Patient has a history of osteoarthritis, COPD, skin cancer. States that her pain is 0. MD Complaint: fall -: hour(s) (1739 today) Fall From: standing, down stairs (#) (1) When Fall Occurred: 1 [address] [employer] [address] Fall Occurred: home Loss of Consciousness: none Prolonged Down Time?: no Symptoms Prior to Fall: none Location - Extremities: Right: Forearm, Leg Severity scale (1-10): 0 Context: tripped/slipped (Slipped down one step off deck) - Related Data Home Medications Medication Instructions Recorded Confirmed Budesonide-Formot 160-4.5 Mcg 2 puff INHALATION RT-BID 01/25/15 11/11/20 [Symbicort 160-4.5 Mcg Inhaler] Simvastatin [Zocor] 20 mg PO HS 01/25/15 11/11/20 Tiotropium 18 Mcg/Puff [Spiriva] 1 cap INHALATION RT-DAILY@119911/01/15 11/11/20 Citalopram Hydrobromide [CeleXA] 10 mg PO HS 05/27/17 11/11/20 Calcium Carbonate [Calcium] 600 mg PO BID 01/06/19 11/11/20 Montelukast [Singulair] 10 mg PO DAILY@119901/06/19 11/11/20 Aspirin EC [Ecotrin Low Dose] 81 mg PO DAILY@1200 12/08/19 11/11/20 Metoprolol Tartrate [Lopressor] 25 mg PO BID 12/08/19 11/11/20 Multivit-Min/Iron/Folic/Lutein 1 tab PO TID 12/08/19 11/11/20 [Centrum Silver Women Tablet] Allergies Allergy/AdvReac Type Severity Reaction Status Date / Time codeine Allergy Unknown Nausea & Verified 11/11/20 18:52 Vomiting Penicillins Allergy Unknown Rash/Hives, Verified 11/11/20 18:52 Throat Swelling venom-honey bee Allergy Unknown Anaphylaxis Verified 11/11/20 18:52 [bee venom (honey bee)] iron Allergy Unknown Verified 11/11/20 18:52 Sulfa (Sulfonamide AdvReac Unknown Nausea Verified 11/11/20 18:52 Antibiotics) Review of Systems ROS Statement: Those systems with pertinent positive or pertinent negative responses have been documented in the HPI. ROS Other: All systems not noted in ROS Statement are negative. Past Medical History Past Medical History: Cancer, COPD, Myocardial Infarction ([place]), Osteoarthritis (OA), Pneumonia Additional Past Medical History / Comment(s): HX OF SKIN CANCER, BRONCHITIS History of Any Multi-Drug Resistant Organisms: None Reported Past Surgical History: Hysterectomy, Tonsillectomy Additional Past Surgical History / Comment(s): rotator cuff rt, lt ankle with quan, breast cyst removed, BREAST BIOPSY, EGD WITH DILATION. Past Anesthesia/Blood Transfusion Reactions: No Reported Reaction Additional Past Anesthesia/Blood Transfusion Reaction / Comment(s): PT DOES NOT KNOW FAMILY HX (FOSTER CHILD) Past Psychological History: No Psychological Hx Reported Smoking Status: Former smoker Past Alcohol Use History: None Reported Past Drug Use History: None Reported - Past Family History Mother Family Medical History: No Reported History Additional Family Medical History / Comment(s): STATES UNKNOWN FAMILY HX. General Exam Limitations: no limitations General appearance: alert, in no apparent distress Head exam: Present: atraumatic, normocephalic, normal inspection Eye exam: Present: normal appearance, PERRL, EOMI. Absent: scleral icterus, conjunctival injection, periorbital swelling ENT exam: Present: normal exam, normal oropharynx, mucous membranes moist Neck exam: Present: normal inspection, full ROM. Absent: tenderness, meningismus, lymphadenopathy Respiratory exam: Present: normal lung sounds bilaterally. Absent: respiratory distress, wheezes, rales, rhonchi, stridor, chest wall tenderness, accessory muscle use, decreased breath sounds Cardiovascular Exam: Present: normal rhythm, bradycardia, normal heart sounds. Absent: systolic murmur, diastolic murmur, rubs, gallop, clicks GI/Abdominal exam: Present: soft, normal bowel sounds. Absent: distended, tenderness, guarding, rebound, rigid Extremities exam: Present: full ROM, normal capillary refill. Absent: tenderness, pedal edema, joint swelling, calf tenderness Back exam: Present: normal inspection, full ROM. Absent: tenderness, CVA tenderness (R), CVA tenderness (L), muscle spasm, paraspinal tenderness, verte bral tenderness Neurological exam: Present: alert, oriented X3, CN II-XII intact Psychiatric exam: Present: normal affect, normal mood Skin exam: Present: warm, dry, normal color, other (Skin tear noted to right lateral calf approximately 5 cm x 5cm semicircle; 0.5 mm skin tear right forearm). Absent: rash, cyanosis, diaphoretic, erythema, urticaria, vesicles, petechiae, pallor, mottled Course Vital Signs 11/11/20 18:15 Temperature 98.2 F Pulse Rate 56 L Respiratory 18 Rate Blood Pressure 164/76 O2 Sat by Pulse 97 Oximetry Procedures - Laceration Laceration #1 Site: lower extremity Description: flap (5 cm x 5 cm flap/ skin tear) Depth: simple, single layer Anesthetic Used: lidocaine 1% Anesthesia Technique: local infiltration Amount (mls): 6 Pre-repair: irrigated extensively (700ml) Type of Sutures: nylon Size of Sutures: 4-0, 5-0 Number of Sutures: 12 Technique: simple, interrupted Patient Tolerated Procedure: well Medical Decision Making - Medical Decision Making 5 cm x 5 cm flap skin avulsion to right lower leg. Closed with 12 sutures and Steri-Strips. Wound was irrigated extensively with 700 mL of sterile water. We will to bear weight and has no focal motor deficits. Flexion and extension of the ankle intact no knee pain. Patient's tetanus updated at this visit. Neosporin dressing applied to the right forearm skin tear. Patient did not hit her head there is no oral injuries she has no C-spine tenderness. Patient takes an aspirin a day., No other blood thinners. Case discussed with Dr. Wellington. Disposition Clinical Impression: Laceration of leg, Skin tear Disposition: HOME SELF-CARE Condition: Good Instructions (If sedation given, give patient instructions): Care For Your Stitches (ED), Laceration (ED), Fall Prevention for Older Adults (ED) Additional Instructions: Keep the wound clean and dry, bacitracin or Neosporin dressing to the right forearm skin tear. Follow-up with your primary care doctor in 7-10 days for suture removal or return to the emergency room. Return if any signs and symptoms of infection including drainage, fever, or increased bleeding. Is patient prescribed a controlled substance at d/c from ED?: No Referrals: Antony Wolfe DO [Primary Care Provider] - 1-2 days Time of Disposition: 20:06
[2020-11-11] MEDS ORDERED: LIDOCAINE 1% INJ 10MG/ML (20 ML MDV) SQ ONE (18:41)
[2020-11-11] MEDS ORDERED: BACITRACIN OINT 1 EACH PACKET TOPICAL ONE (20:13)
[2020-11-11 20:33] VITALS: BP 152/62; PULSE 66; RESP 16
== END 2020-11-11 20:33 | disposition home or self-care (01) ==
LOC: EC 18:13
DX: S81.811A Laceration without foreign body, right lower leg, initial encounter (principal); S51.811A Laceration without foreign body of right forearm, initial encounter; I25.2 Old myocardial infarction; M19.90 Unspecified osteoarthritis, unspecified site; J44.9 Chronic obstructive pulmonary disease, unspecified; Z87.891 Personal history of nicotine dependence; Z88.0 Allergy status to penicillin; Z88.2 Allergy status to sulfonamides; Z88.5 Allergy status to narcotic agent; Z91.030 Bee allergy status; Z91.048 Other nonmedicinal substance allergy status; Z79.82 Long term (current) use of aspirin; Z79.899 Other long term (current) drug therapy; Z79.51 Long term (current) use of inhaled steroids; Z23 Encounter for immunization; W01.0XXA Fall on same level from slipping, tripping and stumbling without subsequent striking against object, initial encounter; Y92.009 Unspecified place in unspecified non-institutional (private) residence as the place of occurrence of the external cause
CPT/HCPCS: 12042 ×2; 99283 ×2; 90471; 90715; J2001

== ENCOUNTER 2020-12-10 15:41 | Emergency (ER) | payer MEDICARE, BC ==
[2020-12-10 15:45] VITALS: BP 153/79; PULSE 69; RESP 16; TEMP 98.4
--- NOTE | 2020-12-10 16:00 | ED ---
General Adult HPI - General Chief complaint: Skin/Abscess/Foreign Body Stated complaint: R leg pain Source: patient, RN notes reviewed Mode of arrival: ambulatory Limitations: no limitations - History of Present Illness Initial comments: 85-year-old well-appearing white female, alert and oriented 4, presents to the emergency room with complaints of redness to her right lower extremity after suture removal. Patient states that she did notice a small amount of drainage and has been using Neosporin twice a day and keeping it covered. Patient denies any fevers, nausea vomiting or diarrhea. She states that it is red and tender but not very painful. She states her tetanus shot was updated at last visit and she did finish her antibiotics as prescribed. -: days(s) (2) Location: right, lower extremity Radiation: non-radiation Severity scale (1-10): 4 Quality: other Consistency: constant (Tender) Improves with: none Worsens with: none Associated Symptoms: denies other symptoms Treatments Prior to Arrival: other (Neosporin) - Related Data Home Medications Medication Instructions Recorded Confirmed Budesonide-Formot 160-4.5 Mcg 2 puff INHALATION RT-BID 01/25/15 11/11/20 [Symbicort 160-4.5 Mcg Inhaler] Simvastatin [Zocor] 20 mg PO HS 01/25/15 11/11/20 Tiotropium 18 Mcg/Puff [Spiriva] 1 cap INHALATION RT-DAILY@119911/01/15 11/11/20 Citalopram Hydrobromide [CeleXA] 10 mg PO HS 05/27/17 11/11/20 Calcium Carbonate [Calcium] 600 mg PO BID 01/06/19 11/11/20 Montelukast [Singulair] 10 mg PO DAILY@119901/06/19 11/11/20 Aspirin EC [Ecotrin Low Dose] 81 mg PO DAILY@119912/08/19 11/11/20 Metoprolol Tartrate [Lopressor] 25 mg PO BID 12/08/19 11/11/20 Multivit-Min/Iron/Folic/Lutein 1 tab PO TID 12/08/19 11/11/20 [Centrum Silver Women Tablet] Previous Rx's Medication Instructions Recorded Cephalexin [Keflex] 500 mg PO Q6HR 5 Days #20 cap 11/23/20 Doxycycline Monohydrate [Monodox] 100 mg PO Q12HR 7 Days #14 cap 12/10/20 Allergies Allergy/AdvReac Type Severity Reaction Status Date / Time codeine Allergy Unknown Nausea & Verified 12/10/20 15:45 Vomiting Penicillins Allergy Unknown Rash/Hives, Verified 12/10/20 15:45 Throat Swelling venom-honey bee Allergy Unknown Anaphylaxis Verified 12/10/20 15:45 [bee venom (honey bee)] iron Allergy Unknown Verified 12/10/20 15:45 Sulfa (Sulfonamide AdvReac Unknown Nausea Verified 12/10/20 15:45 Antibiotics) Review of Systems ROS Statement: Those systems with pertinent positive or pertinent negative responses have been documented in the HPI. ROS Other: All systems not noted in ROS Statement are negative. Past Medical History Past Medical History: Cancer, COPD, Myocardial Infarction ([place]), Osteoarthritis (OA), Pneumonia Additional Past Medical History / Comment(s): HX OF SKIN CANCER, BRONCHITIS History of Any Multi-Drug Resistant Organisms: None Reported Past Surgical History: Hysterectomy, Tonsillectomy Additional Past Surgical History / Comment(s): rotator cuff rt, lt ankle with ro d, breast cyst removed, BREAST BIOPSY, EGD WITH DILATION. Past Anesthesia/Blood Transfusion Reactions: No Reported Reaction Additional Past Anesthesia/Blood Transfusion Reaction / Comment(s): PT DOES NOT KNOW FAMILY HX (FOSTER CHILD) Past Psychological History: No Psychological Hx Reported Smoking Status: Former smoker Past Alcohol Use History: None Reported Past Drug Use History: None Reported - Past Family History Mother Family Medical History: No Reported History Additional Family Medical History / Comment(s): STATES UNKNOWN FAMILY HX. General Exam Limitations: no limitations General appearance: alert, in no apparent distress Head exam: Present: atraumatic, normocephalic, normal inspection Eye exam: Present: normal appearance, PERRL, EOMI. Absent: scleral icterus, conjunctival injection, periorbital swelling ENT exam: Present: normal exam, normal oropharynx, mucous membranes moist Neck exam: Present: normal inspection, full ROM. Absent: tenderness, meningismus, lymphadenopathy Respiratory exam: Present: normal lung sounds bilaterally. Absent: respiratory distress, wheezes, rales, rhonchi, stridor, chest wall tenderness, accessory muscle use Cardiovascular Exam: Present: regular rate, normal rhythm, normal heart sounds. Absent: systolic murmur, diastolic murmur, rubs, gallop, clicks GI/Abdominal exam: Present: soft, normal bowel sounds. Absent: distended, tenderness, guarding, rebound, rigid Extremities exam: Present: normal inspection, full ROM, normal capillary refill. Absent: tenderness, pedal edema, joint swelling, calf tenderness Neurological exam: Present: alert, oriented X3, CN II-XII intact Psychiatric exam: Present: normal affect, normal mood Skin exam: Present: warm, dry, intact, normal color, erythema (Right lower leg). Absent: rash, cyanosis, diaphoretic, petechiae, pallor, mottled Course Vital Signs 12/10/20 15:42 Temperature 98.4 F Pulse Rate 69 Respiratory 16 Rate Blood Pressure 153/79 O2 Sat by Pulse 92 L Oximetry Medical Decision Making - Medical Decision Making Patient had sutures removed from her right lower leg and has developed some redness and tenderness at the site with some drainage. She finished Keflex that was prescribed and will now be placed on doxycycline 100 mg twice a day for 7 days. She'll be continued to use the Neosporin and keep covered. Follow-up with her primary care doctor in 1 week. Return if worsening symptoms including fevers or increased redness. Case discussed with Dr. Benito. Disposition Clinical Impression: Cellulitis Disposition: HOME SELF-CARE Condition: Good Instructions (If sedation given, give patient instructions): Cellulitis (ED) Additional Instructions: Take doxycycline antibiotic twice a day for the next 7 days. Follow-up with the primary care doctor. Return to the emergency room if any fevers or increasing pain. Prescriptions: Doxycycline Monohydrate [Monodox] 100 mg PO Q12HR 7 Days #14 cap Is patient prescribed a controlled substance at d/c from ED?: No Referrals: Antony Wolfe DO [Primary Care Provider] - 1-2 days Time of Disposition: 16:19
== END 2020-12-10 16:32 | disposition home or self-care (01) ==
LOC: EC 15:41
DX: L03.115 Cellulitis of right lower limb (principal); I25.2 Old myocardial infarction; J44.9 Chronic obstructive pulmonary disease, unspecified; M19.90 Unspecified osteoarthritis, unspecified site; Z79.51 Long term (current) use of inhaled steroids; Z79.82 Long term (current) use of aspirin; Z87.891 Personal history of nicotine dependence; Z88.0 Allergy status to penicillin; Z88.2 Allergy status to sulfonamides; Z88.5 Allergy status to narcotic agent; Z91.030 Bee allergy status; Z88.8 Allergy status to other drugs, medicaments and biological substances
CPT/HCPCS: 99283

== ENCOUNTER → 2021-01-24 | Outpatient (CLI) | payer MEDICARE, BC ==
[2021-01-24 10:58] VITALS: BP 127/81; PULSE 56; RESP 16; TEMP 97.7
== END | disposition home or self-care (01) ==
LOC: PROCWHC3 10:46
PROVIDERS: ATTEND Family Medicine
DX: M81.0 Age-related osteoporosis without current pathological fracture (principal)
CPT/HCPCS: 96372; J0897

== ENCOUNTER 2021-05-02 18:19 | Observation (INO) | payer MEDICARE, BC ==
[2021-05-02] MEDS ORDERED: ONDANSETRON 4 MG/2 ML VIAL IVP STA (20:59)
--- NOTE | 2021-05-02 21:03 | ED ---
General Adult HPI - General Source: patient, RN notes reviewed, old records reviewed - History of Present Illness -: hour(s) (10) Location: chest Severity scale (1-10): 0 Associated Symptoms: cough, loss of appetite, nausea/vomiting, weakness Treatments Prior to Arrival: none <Manolo Capps - Last Filed: 05/02/21 22:29> <JustusLeana Olga - Last Filed: 05/03/21 16:42> - General Chief complaint: Upper Respiratory Infection Stated complaint: cough & chest burning-post booster shot Time Seen by Provider: 05/02/21 20:50 - History of Present Illness Initial comments: This is a well-appearing 85-year-old female that presents to the emergency room with complaints of generalized weakness with 2 episodes of nausea and vomiting that started at 11:30 today. Patient states that she also has a cough. She states that she got her Covid booster yesterday. She denies any fevers, difficulty breathing or chest pain. (Manolo Capps) - Related Data Home Medications Medication Instructions Recorded Confirmed Budesonide-Formot 160-4.5 Mcg 2 puff INHALATION RT-BID 01/25/15 05/02/21 [Symbicort 160-4.5 Mcg Inhaler] Simvastatin [Zocor] 20 mg PO DAILY 01/25/15 05/02/21 Tiotropium 18 Mcg/Puff [Spiriva] 1 cap INHALATION RT-DAILY 11/01/15 05/02/21 Citalopram Hydrobromide [CeleXA] 10 mg PO DAILY 05/27/17 05/02/21 Calcium Carbonate [Calcium] 600 mg PO DAILY 01/06/19 05/02/21 Montelukast [Singulair] 10 mg PO DAILY 01/06/19 05/02/21 Aspirin EC [Ecotrin Low Dose] 81 mg PO DAILY 12/08/19 05/02/21 Metoprolol Tartrate [Lopressor] 25 mg PO BID 12/08/19 05/02/21 Multivit-Min/Iron/Folic/Lutein 1 tab PO DAILY 12/08/19 05/02/21 [Centrum Silver Women Tablet] Acetaminophen Tab [Tylenol Tab] 500 mg PO Q6H PRN 05/02/21 05/02/21 Docusate 50mg 50 mg PO DAILY PRN 05/02/21 05/02/21 Equate Dry Eye Relief 1 - 2 drop BOTH EYES QID PRN 05/02/21 05/02/21 Fexofenadine/Pseudoephedrine 1 tab PO DAILY PRN 05/02/21 05/02/21 [Cherelle-D 24 Hour Tablet] Sodium Chloride [Saline Nasal 1 spray EA NOSTRIL DAILY PRN 05/02/21 05/02/21 [place]] Vitamin C/Biotin [Hair, Skin and 1 tab PO DAILY 05/02/21 05/02/21 Nails Chew] Allergies Allergy/AdvReac Type Severity Reaction Status Date / Time codeine Allergy Unknown Nausea & Verified 05/02/21 22:50 Vomiting Penicillins Allergy Unknown Rash/Hives, Verified 05/02/21 22:50 Throat Swelling venom-honey bee Allergy Unknown Anaphylaxis Verified 05/02/21 22:50 [bee venom (honey bee)] iron Allergy Unknown Verified 05/02/21 22:50 Sulfa (Sulfonamide AdvReac Unknown Nausea Verified 05/02/21 22:50 Antibiotics) Review of Systems ROS Other: All systems not noted in ROS Statement are negative. <Manolo Capps - Last Filed: 05/02/21 22:29> ROS Other: All systems not noted in ROS Statement are negative. <Leana Jerome - Last Filed: 05/03/21 16:42> ROS Statement: Those systems with pertinent positive or pertinent negative responses have been documented in the HPI. Past Medical History Past Medical History: Cancer, COPD, Myocardial Infarction ([place]), Osteoarthritis (OA), Pneumonia Additional Past Medical History / Comment(s): HX OF SKIN CANCER, BRONCHITIS Last Myocardial Infarction Date:: unknown if [place] History of Any Multi-Drug Resistant Organisms: None Reported Past Surgical History: Hysterectomy, Tonsillectomy Additional Past Surgical History / Comment(s): rotator cuff rt, lt ankle with quan, breast cyst removed, BREAST BIOPSY, EGD WITH DILATION. Past Anesthesia/Blood Transfusion Reactions: No Reported Reaction Additional Past Anesthesia/Blood Transfusion Reaction / Comment(s): PT DOES NOT KNOW FAMILY HX (FOSTER CHILD) Past Psychological History: No Psychological Hx Reported Smoking Status: Former smoker Past Alcohol Use History: None Reported Past Drug Use History: None Reported - Past Family History Mother Family Medical History: No Reported History Additional Family Medical History / Comment(s): STATES UNKNOWN FAMILY HX. <Manolo Capps - Last Filed: 05/02/21 22:29> General Exam General appearance: alert, in no apparent distress Head exam: Present: atraumatic, normocephalic, normal inspection Eye exam: Present: normal appearance, EOMI ENT exam: Present: normal exam, normal oropharynx, mucous membranes moist Neck exam: Present: normal inspection, full ROM. Absent: tenderness, meningismus, lymphadenopathy, thyromegaly Respiratory exam: Present: normal lung sounds bilaterally. Absent: respiratory distress, wheezes, rales, rhonchi, stridor, chest wall tenderness, accessory muscle use, decreased breath sounds Cardiovascular Exam: Present: tachycardia. Absent: JVD GI/Abdominal exam: Present: soft, normal bowel sounds. Absent: distended, tenderness, guarding, rebound, rigid Extremities exam: Present: normal capillary refill. Absent: pedal edema, calf tenderness Back exam: Present: normal inspection, full ROM. Absent: tenderness, CVA tenderness (R), CVA tenderness (L), rash noted Neurological exam: Present: alert, oriented X3 Psychiatric exam: Present: normal affect, normal mood Skin exam: Present: warm, dry, intact, normal color. Absent: rash, cyanosis, diaphoretic, petechiae, pallor <Manolo Capps - Last Filed: 05/02/21 22:29> Course Vital Signs 05/02/21 05/02/21 05/02/21 20:17 21:30 22:23 Temperature 98.2 F 99.0 F Pulse Rate 107 H 99 Pulse Rate [ Pulse Oximetery ] Respiratory 18 18 18 Rate Blood Pressure 127/79 139/84 Blood Pressure [Left Arm] O2 Sat by Pulse 94 L 97 Oximetry 05/02/21 05/02/21 05/03/21 23:00 23:12 02:40 Temperature 98.1 F 98.4 F Pulse Rate 88 96 Pulse Rate [ 85 Pulse Oximetery ] Respiratory 18 20 20 Rate Blood Pressure 116/75 146/74 Blood Pressure 144/79 [Left Arm] O2 Sat by Pulse 95 95 95 Oximetry 05/03/21 05/03/21 05/03/21 06:02 08:00 08:47 Temperature 98.4 F 98.6 F Pulse Rate 87 85 Pulse Rate [ Pulse Oximetery ] Respiratory 20 20 20 Rate Blood Pressure 136/74 132/75 Blood Pressure [Left Arm] O2 Sat by Pulse 95 95 Oximetry EKG Findings - EKG Results: EKG: sinus rhythm (Ventricular rate of 100, OH interval 0.132, QRS 0.82, QTC 0.448) <Manolo Capps - Last Filed: 05/02/21 22:29> Medical Decision Making - Lab Data Result diagrams: 05/02/21 21:25 05/02/21 21:25 <Manolo Capps - Last Filed: 05/02/21 22:29> - Lab Data Result diagrams: 05/02/21 21:25 05/02/21 21:25 <Leana Jerome - Last Filed: 05/03/21 16:42> - Medical Decision Making This is an 85-year-old female, alert and oriented 4, presents to the emergency room with weakness and nausea and vomiting after getting her Covid booster yesterday. She's had decreased appetite. States when she tried to get up to use the bathroom she felt weak and "wobbly". She is afraid of falling as she has had multiple falls and multiple fractures. She states she does live alone and loss her this summer. There is no evidence of leukocytosis. Troponin is negative, EKG shows sinus rhythm. Urinalysis shows 2+ ketones, otherwise negative. Chest x-ray is clear with no acute cardiopulmonary process. Case discussed with Dr. Jerome. Will admit patient to observation for dehydration. (Manolo Capps) I was available for consultation in the emergency department. The history and physical exam were done by the midlevel provider. I was consulted for this patients care. I reviewed the case with the midlevel provider and based on their presentation of the patient, I agree with the assessment, medical decision making and plan of care as documented. Chart was dictated using [employer] dictation software. Attempts were made to correct any dictation errors however some typographical errors may persist. (Leana Jerome) - Lab Data Lab Results 05/02/21 05/02/21 05/02/21 Range/Units 21:25 21:25 21:25 WBC 6.2 (3.8-10.6) k/uL RBC 3.97 (3.80-5.40) m/uL Hgb 12.6 (11.4-16.0) gm/dL Hct 37.9 (34.0-46.0) % MCV 95.2 (80.0-100.0) fL MCH 31.6 (25.0-35.0) pg MCHC 33.2 (31.0-37.0) g/dL RDW 13.1 (11.5-15.5) % Plt Count 150 (150-450) k/uL MPV 6.6 Neutrophils % 82 % Lymphocytes % 9 % Monocytes % 6 % Eosinophils % 1 % Basophils % 0 % Neutrophils # 5.0 (1.3-7.7) k/uL Lymphocytes # 0.6 L (1.0-4.8) k/uL Monocytes # 0.4 (0-1.0) k/uL Eosinophils # 0.1 (0-0.7) k/uL Basophils # 0.0 (0-0.2) k/uL PT 10.2 (9.0-12.0) sec INR 0.9 (<1.2) APTT 22.6 (22.0-30.0) sec Sodium 137 (137-145) mmol/L Potassium 4.4 (3.5-5.1) mmol/L Chloride 102 (98-107) mmol/L Carbon Dioxide 23 (22-30) mmol/L Anion Gap 12 mmol/L BUN 25 H (7-17) mg/dL Creatinine 1.12 H (0.52-1.04) mg/dL Est GFR (CKD-EPI)AfAm 52 (>60 ml/min/1.73 sqM) Est GFR (CKD-EPI)NonAf 45 (>60 ml/min/1.73 sqM) Glucose 112 H (74-99) mg/dL Calcium 9.7 (8.4-10.2) mg/dL Magnesium 1.9 (1.6-2.3) mg/dL Total Bilirubin 0.4 (0.2-1.3) mg/dL AST 27 (14-36) U/L ALT 18 (4-34) U/L Alkaline Phosphatase 44 (38-126) U/L Troponin I (0.000-0.034) ng/mL Total Protein 6.7 (6.3-8.2) g/dL Albumin 4.0 (3.5-5.0) g/dL Urine Color Urine Appearance (Clear) Urine pH (5.0-8.0) Ur Specific [place] (1.001-1.035) Urine Protein (Negative) Urine Glucose (UA) (Negative) Urine Ketones (Negative) Urine Blood (Negative) Urine Nitrite (Negative) Urine Bilirubin (Negative) Urine Urobilinogen (<2.0) mg/dL Ur Leukocyte Esterase (Negative) Urine RBC (0-5) /hpf Urine WBC (0-5) /hpf Urine Mucus (None) /hpf Coronavirus (PCR) (Not Detectd) 05/02/21 05/02/21 05/02/21 Range/Units 21:25 21:25 21:45 WBC (3.8-10.6) k/uL RBC (3.80-5.40) m/uL Hgb (11.4-16.0) gm/dL Hct (34.0-46.0) % MCV (80.0-100.0) fL MCH (25.0-35.0) pg MCHC (31.0-37.0) g/dL RDW (11.5-15.5) % Plt Count (150-450) k/uL MPV Neutrophils % % Lymphocytes % % Monocytes % % Eosinophils % % Basophils % % Neutrophils # (1.3-7.7) k/uL Lymphocytes # (1.0-4.8) k/uL Monocytes # (0-1.0) k/uL Eosinophils # (0-0.7) k/uL Basophils # (0-0.2) k/uL PT (9.0-12.0) sec INR (<1.2) APTT (22.0-30.0) sec Sodium (137-145) mmol/L Potassium (3.5-5.1) mmol/L Chloride (98-107) mmol/L Carbon Dioxide (22-30) mmol/L Anion Gap mmol/L BUN (7-17) mg/dL Creatinine (0.52-1.04) mg/dL Est GFR (CKD-EPI)AfAm (>60 ml/min/1.73 sqM) Est GFR (CKD-EPI)NonAf (>60 ml/min/1.73 sqM) Glucose (74-99) mg/dL Calcium (8.4-10.2) mg/dL Magnesium (1.6-2.3) mg/dL Total Bilirubin (0.2-1.3) mg/dL AST (14-36) U/L ALT (4-34) U/L Alkaline Phosphatase (38-126) U/L Troponin I 0.015 (0.000-0.034) ng/mL Total Protein (6.3-8.2) g/dL Albumin (3.5-5.0) g/dL Urine Color Yellow Urine Appearance Clear (Clear) Urine pH 7.0 (5.0-8.0) Ur Specific [place] 1.023 (1.001-1.035) Urine Protein Trace H (Negative) Urine Glucose (UA) Negative (Negative) Urine Ketones 2+ H (Negative) Urine Blood Trace H (Negative) Urine Nitrite Negative (Negative) Urine Bilirubin Negative (Negative) Urine Urobilinogen <2.0 (<2.0) mg/dL Ur Leukocyte Esterase Small H (Negative) Urine RBC 5 (0-5) /hpf Urine WBC 5 (0-5) /hpf Urine Mucus Rare H (None) /hpf Coronavirus (PCR) Not Detected (Not Detectd) Disposition Decision Date: 05/02/21 Decision Time: 22:25 <Manolo Capps - Last Filed: 05/02/21 22:29> <Leana Jerome - Last Filed: 05/03/21 16:42> Clinical Impression: Dehydration, Weakness Disposition: ADMITTED IP TO THIS [facility] Condition: Good
[2021-05-02 21:33] LABS: Basophils % (A) 0 %; Eosinophils # (A) 0.1 k/uL (0-0.7); Eosinophils % (A) 1 %; HCT 37.9 % (34.0-46.0); HGB 12.6 gm/dL (11.4-16.0); Lymphocytes # (A) 0.6 k/uL (1.0-4.8); Lymphocytes % (A) 9 %; MCH 31.6 pg (25.0-35.0); MCHC 33.2 g/dL (31.0-37.0); MCV 95.2 fL (80.0-100.0); Mean Platelet Volume 6.6; Monocytes # (A) 0.4 k/uL (0-1.0); Monocytes % (A) 6 %; Neutrophils % (A) 82 %; Platelet Count 150 k/uL (150-450); RBC 3.97 m/uL (3.80-5.40); RDW 13.1 % (11.5-15.5); WBC 6.2 k/uL (3.8-10.6)
--- NOTE | 2021-05-02 21:36 | XR ---
EXAMINATION TYPE: XR chest 2V DATE OF EXAM: 05/02/2021 9:28 PM COMPARISON: 08/28/2020 CLINICAL INDICATION:Female, 85 years old with history of Weakness; TECHNIQUE: Frontal and lateral views of the chest. FINDINGS: Lungs/Pleura: There is no evidence of pleural effusion, focal consolidation, or pneumothorax. Pulmonary vascularity: Unremarkable. Heart/mediastinum: Cardiomediastinal silhouette is unremarkable. Musculoskeletal: No acute osseous pathology. IMPRESSION: No acute cardiopulmonary disease/process.
[2021-05-02 21:43] LABS: Calcium 9.7 mg/dL (8.4-10.2); Magnesium 1.9 mg/dL (1.6-2.3); Potassium 4.4 mmol/L (3.5-5.1); Total Bilirubin 0.4 mg/dL (0.2-1.3); Total Protein 6.7 g/dL (6.3-8.2)
[2021-05-02 22:00] LABS: INR 0.9 (<1.2); Partial Thromboplastin Time 22.6 sec (22.0-30.0); Prothrombin Time 10.2 sec (9.0-12.0)
[2021-05-02 22:01] LABS: Appearance,Urine Clear (Clear); Bilirubin,Urine Negative (Negative); Blood,Urine Trace (Negative); Color,Urine Yellow; Glucose,Urine (UA) Negative (Negative); Ketones,Urine 2+ (Negative); Leukocyte Esterase,Urine Small (Negative); Mucus,Urine Rare /hpf; Nitrite,Urine Negative (Negative); Protein,Urine Trace (Negative); RBC,Urine 5 /hpf (0-5); Specific Gravity,Urine 1.023 (1.001-1.035); Urobilinogen,Urine <2.0 mg/dL (<2.0); WBC,Urine 5 /hpf (0-5)
[2021-05-02] MEDS ORDERED: NALOXONE 0.4 MG/ML 1 ML VIAL IV PRN (22:25)
[2021-05-02] MEDS ORDERED: ACETAMINOPHEN TAB 325 MG TAB PO PRN (22:25)
[2021-05-02] MEDS: SODIUM CHLORIDE 0.9% 1,000 ML IV SCH (23:00)
[2021-05-03] MEDS ORDERED: DOCUSATE ORAL SOLN 100 MG/10 ML CUP PO PRN (00:35)
[2021-05-03] MEDS: BENZONATATE 100 MG CAP PO PRN ×2 (00:46→10:37)
[2021-05-03] MEDS: TIOTROPIUM 2.5 MCG INHALER INHALATION SCH (08:11)
[2021-05-03] MEDS: SYMBICORT 160-4.5 MCG INHALER INHALATION SCH ×2 (08:12→21:27)
[2021-05-03] MEDS: CITALOPRAM HYDROBROMIDE 10 MG TAB PO SCH (10:36)
[2021-05-03] MEDS: MONTELUKAST 10 MG TAB PO SCH (10:36)
[2021-05-03] MEDS: METOPROLOL TARTRATE 25 MG TAB PO SCH ×2 (10:36→21:22)
[2021-05-03] MEDS: ATORVASTATIN 10 MG TAB PO SCH (10:37)
[2021-05-03] MEDS: CALCIUM CARBONATE 500 MG CHEWABLE PO SCH (10:37)
[2021-05-03] MEDS: ASPIRIN 81 MG PO SCH (10:38)
--- NOTE | 2021-05-03 13:32 | P.CRDCN ---
History of Present Illness Consult date: 05/03/21 History of present illness: HISTORY OF PRESENT ILLNESS: This is a 85-year-old female with a past medical history significant for COPD, and hyperlipidemia, hypertension. Patient follows in the office with Dr. Chandler. We have been asked to see the patient in consultation for weakness, dehydration, and shortness of breath. Patient examined at the bedside. Patient states she got her Covid booster on 05/01/2021. She states she started getting a cough yesterday that was persistent. She states she was coughing so bad she would gag and feel nauseous. She denies having any episodes of vomiting. She denies feeling short of breath. She denies chest pain or pressure. She also reports feeling cold yesterday and laying on the couch all day with multiple blankets. However, she states she did not check her temperature. She called her granddau judy who wanted her to come to the hospital to be evaluated. EKG reveals sinus mechanism with no signs of acute ischemia Chest xray negative for acute process Laboratory data: WBC 6.2. Hemoglobin 12.6. Platelet count 250. Sodium 137. Potassium 4.4. BUN 25. Creatinine 1.12. Troponin negative 1. Current home cardiac medications include simvastatin 20 mg daily, metoprolol tartrate 25 mg twice a day, aspirin 81 mg daily Most recent echocardiogram obtained in December 2017 EF 50-55%, basal inferior LV wall hypokinesis, moderate to severe mitral regurgitation, moderate tricuspid regurgitation, and mild pulmonary hypertension Cardiac catheterization history: 2018 revealing normal coronary arteries REVIEW OF SYSTEMS: At the time of my exam: CONSTITUTIONAL: Denies fever. + chills. + generalized weakness HEENT: Denies blurred vision, vision changes, or eye pain. Denies hemoptysis CARDIOVASCULAR: Denies chest pain. Denies orthopnea. Denies PND. Denies p alpitations RESPIRATORY: Denies shortness of breath. GASTROINTESTINAL: Denies abdominal pain. Denies nausea or vomiting. HEMATOLOGIC: Denies bleeding disorders. GENITOURINARY: Denies any blood in urine. SKIN: Denies pruitis. Denies rash. PHYSICAL EXAM: VITAL SIGNS: Reviewed. GENERAL: Well-developed in no acute distress. HEENT: Head is normocephalic. Pupils are equal, round. Sclerae anicteric. Mucous membranes of the mouth are moist. Neck supple. No JVD or thyromegaly LUNGS: Respirations even and unlabored. Lungs essentially clear to auscultation bilaterally. HEART: Regular rate and rhythm. S1 and S2 heard. Systolic murmur noted. ABDOMEN: Soft. Nondistended. Nontender. EXTREMITIES: Normal range of motion. No clubbing or cyanosis. Peripheral pulses intact. No lower extremity edema NEUROLOGIC: Awake and alert. Oriented x 3. ASSESSMENT: Generalized weakness and cough, s/p covid booster Shortness of breath, ruled out, patient denies having any SOB Hypertension Hyperlipidemia COPD Valvular heart disease PLAN: Obtain 2D echo to assess cardiac structure and function Patient has no complaints of chest pain or pressure She is currently stable from a cardiac standpoint No further inpatient recommendations from a cardiac perspective Nurse practitioner note has been reviewed by physician. Signing provider agrees with the documented findings, assessment, and plan of care. Past Medical History Past Medical History: Cancer, COPD, Myocardial Infarction ([place]), Osteoarthritis (OA), Pneumonia Additional Past Medical History / Comment(s): HX OF SKIN CANCER, BRONCHITIS Last Myocardial Infarction Date:: unknown if [place] History of Any Multi-Drug Resistant Organisms: None Reported Past Surgical History: Hysterectomy, Tonsillectomy Additional Past Surgical History / Comment(s): rotator cuff rt, lt ankle with quan, breast cyst removed, BREAST BIOPSY, EGD WITH DILATION. Past Anesthesia/Blood Transfusion Reactions: No Reported Reaction Additional Past Anesthesia/Blood Transfusion Reaction / Comment(s): PT DOES NOT KNOW FAMILY HX (FOSTER CHILD) Past Psychological History: No Psychological Hx Reported Additional Psychological History / Comment(s): pt lives alone spouse passed on november 2020 no home care srvices. uses [facility] Smoking Status: Never smoker Past Alcohol Use History: None Reported Additional Past Alcohol Use History / Comment(s): started smoking age 17(1952) and quit 1957 1 cig a day Past Drug Use History: None Reported - Past Family History Mother Family Medical History: No Reported History Additional Family Medical History / Comment(s): STATES UNKNOWN FAMILY HX. Medications and Allergies Home Medications Medication Instructions Recorded Confirmed Type Budesonide-Formot 160-4.5 Mcg 2 puff INHALATION RT-BID 01/25/15 05/02/21 History [Symbicort 160-4.5 Mcg Inhaler] Simvastatin [Zocor] 20 mg PO DAILY 01/25/15 05/02/21 History Tiotropium 18 Mcg/Puff [Spiriva] 1 cap INHALATION RT-DAILY 11/01/15 05/02/21 History Citalopram Hydrobromide [CeleXA] 10 mg PO DAILY 05/27/17 05/02/21 History Calcium Carbonate [Calcium] 600 mg PO DAILY 01/06/19 05/02/21 History Montelukast [Singulair] 10 mg PO DAILY 01/06/19 05/02/21 History Aspirin EC [Ecotrin Low Dose] 81 mg PO DAILY 12/08/19 05/02/21 History Metoprolol Tartrate [Lopressor] 25 mg PO BID 12/08/19 05/02/21 History Multivit-Min/Iron/Folic/Lutein 1 tab PO DAILY 12/08/19 05/02/21 History [Centrum Silver Women Tablet] Acetaminophen Tab [Tylenol Tab] 500 mg PO Q6H PRN 05/02/21 05/02/21 History Docusate 50mg 50 mg PO DAILY PRN 05/02/21 05/02/21 History Equate Dry Eye Relief 1 - 2 drop BOTH EYES QID PRN 05/02/21 05/02/21 History Fexofenadine/Pseudoephedrine 1 tab PO DAILY PRN 05/02/21 05/02/21 History [Cherelle-D 24 Hour Tablet] Sodium Chloride [Saline Nasal 1 spray EA NOSTRIL DAILY PRN 05/02/21 05/02/21 History [place]] Vitamin C/Biotin [Hair, Skin and 1 tab PO DAILY 05/02/21 05/02/21 History Nails Chew] Allergies Allergy/AdvReac Type Severity Reaction Status Date / Time codeine Allergy Unknown Nausea & Verified 05/02/21 22:50 Vomiting Penicillins Allergy Unknown Rash/Hives, Verified 05/02/21 22:50 Throat Swelling venom-honey bee Allergy Unknown Anaphylaxis Verified 05/02/21 22:50 [bee venom (honey bee)] iron Allergy Unknown Verified 05/02/21 22:50 Sulfa (Sulfonamide AdvReac Unknown Nausea Verified 05/02/21 22:50 Antibiotics) Physical Exam Vitals: Vital Signs Temp Pulse Pulse Resp BP BP Pulse Ox 05/03/21 08:47 98.6 F 85 20 132/75 95 05/03/21 06:02 98.4 F 87 20 136/74 95 05/03/21 02:40 98.4 F 96 20 146/74 95 05/02/21 23:12 98.1 F 85 20 144/79 95 05/02/21 23:00 88 18 116/75 95 05/02/21 22:23 99.0 F 99 18 139/84 97 05/02/21 21:30 18 05/02/21 20:17 98.2 F 107 H 18 127/79 94 L Intake and Output 05/02/21 05/03/21 05/03/21 22:59 06:59 14:59 Other: # Voids 1 Weight 54.431 kg 54.431 kg Results 05/02/21 21:25 05/02/21 21:25 Cardiac Enzymes 05/02/21 05/02/21 Range/Units 21:25 21:25 AST 27 (14-36) U/L Troponin I 0.015 (0.000-0.034) ng/mL Coagulation 05/02/21 Range/Units 21:25 PT 10.2 (9.0-12.0) sec APTT 22.6 (22.0-30.0) sec CBC 05/02/21 Range/Units 21:25 WBC 6.2 (3.8-10.6) k/uL RBC 3.97 (3.80-5.40) m/uL Hgb 12.6 (11.4-16.0) gm/dL Hct 37.9 (34.0-46.0) % Plt Count 150 (150-450) k/uL Comprehensive Metabolic Panel 05/02/21 Range/Units 21:25 Sodium 137 (137-145) mmol/L Potassium 4.4 (3.5-5.1) mmol/L Chloride 102 (98-107) mmol/L Carbon Dioxide 23 (22-30) mmol/L BUN 25 H (7-17) mg/dL Creatinine 1.12 H (0.52-1.04) mg/dL Glucose 112 H (74-99) mg/dL Calcium 9.7 (8.4-10.2) mg/dL AST 27 (14-36) U/L ALT 18 (4-34) U/L Alkaline Phosphatase 44 (38-126) U/L Total Protein 6.7 (6.3-8.2) g/dL Albumin 4.0 (3.5-5.0) g/dL Current Medications Generic Name Dose Route Start Last Admin Trade Name Freq PRN Reason Stop Dose Admin Acetaminophen 650 mg 05/02/21 22:25 Acetaminophen Tab 325 Mg Tab PO Q6HR PRN Mild Pain or Fever > 100.5 Aspirin 81 mg 05/03/21 09:00 05/03/21 10:38 Aspirin 81 Mg PO 81 mg DAILY YORDY Administration Atorvastatin Calcium 10 mg 05/03/21 09:00 05/03/21 10:37 Atorvastatin 10 Mg Tab PO 10 mg DAILY YORDY Administration Benzonatate 100 mg 05/03/21 00:29 05/03/21 10:37 Benzonatate 100 Mg Cap PO 100 mg TID PRN Administration Cough Budesonide/Formoterol Fumarate 2 puff 05/03/21 08:00 05/03/21 08:12 Symbicort 160-4.5 Mcg Inhaler INHALATION 2 puff RT-BID YORDY Administration Calcium Carbonate/Glycine 500 mg 05/03/21 09:00 05/03/21 10:37 Calcium Carbonate 500 Mg Chewable PO 500 mg DAILY YORDY Administration Citalopram Hydrobromide 10 mg 05/03/21 09:00 05/03/21 10:36 Citalopram Hydrobromide 10 Mg Tab PO 10 mg DAILY YORDY Administration Docusate Sodium 50 mg 05/03/21 00:35 Docusate Oral Soln 100 Mg/10 Ml Cup PO DAILY PRN Constipation Sodium Chloride 1,000 mls @ 75 mls/hr 05/02/21 22:30 05/02/21 23:00 Saline 0.9% IV 75 mls/hr .[id number] YORDY Administration Metoprolol Tartrate 25 mg 05/03/21 09:00 05/03/21 10:36 Metoprolol Tartrate 25 Mg Tab PO 25 mg BID YORDY Administration Montelukast Sodium 10 mg 05/03/21 09:00 05/03/21 10:36 Montelukast 10 Mg Tab PO 10 mg DAILY YORDY Administration Naloxone HCl 0.2 mg 05/02/21 22:25 Naloxone 0.4 Mg/Ml 1 Ml Vial IV Q2M PRN Opioid Reversal Tiotropium [place] 2 puff 05/03/21 08:00 05/03/21 08:11 Tiotropium 2.5 Mcg Inhaler INHALATION 2 puff RT-DAILY YORDY Administration Intake and Output 05/02/21 05/03/21 05/03/21 22:59 06:59 14:59 Other: # Voids 1 Weight 54.431 kg 54.431 kg 05/02/21 21:25 05/02/21 21:25
[2021-05-03] MEDS: SODIUM CHLORIDE 0.9% 1,000 ML IV SCH (14:24)
--- NOTE | 2021-05-03 16:08 | P.CNPUL ---
History of Present Illness Consult date: 05/03/21 Requesting physician: Hyacinth Sullivan Reason for consult: dyspnea Chief complaint: Generalized weakness, cough, dehydration History of present illness: This is a pleasant 85-year-old female patient who follows with Dr. Wolfe as her primary care provider. She has a history of skin cancer, myocardial infarction, osteoarthritis, former smoker, COPD, hyperlipidemia. She presented to the emergency room last evening with complaints of generalized weakness, 2 episodes of nausea and vomiting that started yesterday morning. She had just received a CoVID booster shot the day before. Chest x-ray reveals no acute pulmonary process. White count 6.2. Hemoglobin 12.6. Sodium 137. Potassium 4.4. Creatinine 1.12. Glucose 112. Troponin negative 1. Connors virus by PCR not detected. She is seen today in consultation on the observation unit. She is currently resting quite comfortably in bed. Awake and alert in no acute distress. Maintaining O2 saturations in the 90s on room air. He's been afebrile. Hemodynamically stable. Review of Systems REVIEW OF SYSTEMS: CONSTITUTIONAL: Generalized weakness, fatigue. Denies any recent significant weight loss or weight gain. EYES: Denies change in vision. EARS, NOSE, MOUTH, THROAT: Denies headaches, denies sore throat. CARDIOVASCULAR: Denies chest pain, palpitations or syncopal episodes. RESPIRATORY: Positive for shortness of breath, no cough, congestion or hemoptysis. GASTROINTESTINAL: Positive for nausea, vomiting GENITOURINARY: Denies hematuria, denies infections. MUSKULOSKELETAL: Denies pain, denies swelling. INTEGUMENTARY: Denies rash, denies eczema. NEUROLOGICAL: Denies recent memory loss, no recent seizure activity. PSYCHIATRIC: Denies anxiety, denies depression. HEMATOLOGIC/LYMPHATIC: Denies anemia, denies enlarged lymph nodes. Past Medical History Past Medical History: Cancer, COPD, Myocardial Infarction (OK), Osteoarthritis (OA), Pneumonia Additional Past Medical History / Comment(s): HX OF SKIN CANCER, BRONCHITIS Last Myocardial Infarction Date:: unknown if OK History of Any Multi-Drug Resistant Organisms: None Reported Past Surgical History: Hysterectomy, Tonsillectomy Additional Past Surgical History / Comment(s): rotator cuff rt, lt ankle with quan, breast cyst removed, BREAST BIOPSY, EGD WITH DILATION. Past Anesthesia/Blood Transfusion Reactions: No Reported Reaction Additional Past Anesthesia/Blood Transfusion Reaction / Comment(s): PT DOES NOT KNOW FAMILY HX (FOSTER CHILD) Past Psychological History: No Psychological Hx Reported Additional Psychological History / Comment(s): pt lives alone spouse passed on november 2020 no home care srvices. uses [facility] Smoking Status: Never smoker Past Alcohol Use History: None Reported Additional Past Alcohol Use History / Comment(s): started smoking age 17(1952) and quit 1957 1 cig a day Past Drug Use History: None Reported - Past Family History Mother Family Medical History: No Reported History Additional Family Medical History / Comment(s): STATES UNKNOWN FAMILY HX. Medications and Allergies Home Medications Medication Instructions Recorded Confirmed Type Budesonide-Formot 160-4.5 Mcg 2 puff INHALATION RT-BID 01/25/15 05/02/21 History [Symbicort 160-4.5 Mcg Inhaler] Simvastatin [Zocor] 20 mg PO DAILY 01/25/15 05/02/21 History Tiotropium 18 Mcg/Puff [Spiriva] 1 cap INHALATION RT-DAILY 11/01/15 05/02/21 History Citalopram Hydrobromide [CeleXA] 10 mg PO DAILY 05/27/17 05/02/21 History Calcium Carbonate [Calcium] 600 mg PO DAILY 01/06/19 05/02/21 History Montelukast [Singulair] 10 mg PO DAILY 01/06/19 05/02/21 History Aspirin EC [Ecotrin Low Dose] 81 mg PO DAILY 12/08/19 05/02/21 History Metoprolol Tartrate [Lopressor] 25 mg PO BID 12/08/19 05/02/21 History Multivit-Min/Iron/Folic/Lutein 1 tab PO DAILY 12/08/19 05/02/21 History [Centrum Silver Women Tablet] Acetaminophen Tab [Tylenol Tab] 500 mg PO Q6H PRN 05/02/21 05/02/21 History Docusate 50mg 50 mg PO DAILY PRN 05/02/21 05/02/21 History Equate Dry Eye Relief 1 - 2 drop BOTH EYES QID PRN 05/02/21 05/02/21 History Fexofenadine/Pseudoephedrine 1 tab PO DAILY PRN 05/02/21 05/02/21 History [Cherelle-D 24 Hour Tablet] Sodium Chloride [Saline Nasal 1 spray EA NOSTRIL DAILY PRN 05/02/21 05/02/21 History [place]] Vitamin C/Biotin [Hair, Skin and 1 tab PO DAILY 05/02/21 05/02/21 History Nails Chew] Allergies Allergy/AdvReac Type Severity Reaction Status Date / Time codeine Allergy Unknown Nausea & Verified 05/02/21 22:50 Vomiting Penicillins Allergy Unknown Rash/Hives, Verified 05/02/21 22:50 Throat Swelling venom-honey bee Allergy Unknown Anaphylaxis Verified 05/02/21 22:50 [bee venom (honey bee)] iron Allergy Unknown Verified 05/02/21 22:50 Sulfa (Sulfonamide AdvReac Unknown Nausea Verified 05/02/21 22:50 Antibiotics) Physical Exam Vitals: Vital Signs Temp Pulse Pulse Resp BP BP Pulse Ox 05/03/21 14:29 98.0 F 62 18 136/80 94 L 05/03/21 08:47 98.6 F 85 20 132/75 95 05/03/21 08:00 20 05/03/21 06:02 98.4 F 87 20 136/74 95 05/03/21 02:40 98.4 F 96 20 146/74 95 05/02/21 23:12 98.1 F 85 20 144/79 95 05/02/21 23:00 88 18 116/75 95 05/02/21 22:23 99.0 F 99 18 139/84 97 05/02/21 21:30 18 05/02/21 20:17 98.2 F 107 H 18 127/79 94 L Intake and Output 05/03/21 05/03/21 05/03/21 06:59 14:59 22:59 Other: # Voids 1 1 Weight 54.431 kg GENERAL EXAM: Alert, very pleasant 85-year-old female patient, on room air, comfortable in no apparent distress. HEAD: Normocephalic. EYES: Normal reaction of pupils, equal size. NOSE: Clear with pink turbinates. THROAT: No erythema or exudates. NECK: No masses, no JVD. CHEST: No chest wall deformity. LUNGS: Equal air entry with no crackles, wheeze, rhonchi or dullness. CVS: S1 and S2 normal with no audible murmur, regular rhythm. ABDOMEN: No hepatosplenomegaly, normal bowel sounds, no guarding or rigidity. SPINE: No scoliosis or deformity SKIN: No rashes CENTRAL NERVOUS SYSTEM: No focal deficits, tone is normal in all 4 extremities. EXTREMITIES: There is no peripheral edema. No clubbing, no cyanosis. Peripheral pulses are intact. Results - Laboratory Findings CBC and BMP: 05/02/21 21:25 05/02/21 21:25 PT/INR, D-dimer PT 10.2 sec (9.0-12.0) 05/02/21 21:25 INR 0.9 (<1.2) 05/02/21 21:25 Abnormal lab findings: Abnormal Labs 05/02/21 05/02/21 05/02/21 21:25 21:25 21:45 Lymphocytes # 0.6 L BUN 25 H Creatinine 1.12 H Glucose 112 H Urine Protein Trace H Urine Ketones 2+ H Urine Blood Trace H Ur Leukocyte Esterase Small H Urine Mucus Rare H - Diagnostic Findings Chest x-ray: image reviewed (No acute pulmonary process) Assessment and Plan Assessment: 1 Acute generalized weakness, fatigue, nausea vomiting, dehydration suspect secondary to CoVID booster. No leukocytosis. No fever. Chest x-ray reveals no acute pulmonary process. On room air. 2 Acute renal failure secondary to dehydration 3 Former smoker, COPD, stable and inactive on Symbicort, Spiriva and albuterol in the outpatient setting. 3 Hyperlipidemia 4 History of depression Plan: The patient was seen and evaluated Chest x-ray and labs reviewed No acute pulmonary process, on room air Continue 0.9 normal saline at 75 ML's per hour Probable discharge in the a.m. I, the cosigning physician, performed a history & physical examination of the patient. Lungs sounds are clear. Maintaining good O2 saturations in the 90s on room air. I discussed the assessment and plan of care with my nurse practitioner, Karina Werner. I attest to the above location as dictated by her. Time with Patient: Greater than 30
[2021-05-03] MEDS ORDERED: ARTIFICIAL TEARS-HYPROMELLOSE DROPS 15 ML BTL BOTH EYES PRN (16:25)
--- NOTE | 2021-05-03 17:26 | HP ---
HISTORY AND PHYSICAL DATE OF SERVICE: 05/03/2021. CHIEF COMPLAINT: Cough, chest burning and as well as weakness. HISTORY OF PRESENT ILLNESS: This 85-year-old woman with a past medical history of multiple medical problems, including history of COPD, history of myocardial infarction, history of DJD, history of pneumonia, history of skin cancer, hysterectomy, tonsillectomy, being followed by Dr. Wolfe and Dr. Chandler in the outpatient setting apparently had a Covid booster yesterday and the patient subsequently had some cough, upper respiratory symptoms and some chest discomfort and the patient was found to be extremely weak and dehydrated. Patient came to [facility] and the patient was found to have acute renal failure. Patient given IV fluids, admitted for further evaluation and treatment. There is no history of fever, rigors or chills. No history of headache, loss of consciousness, seizures at this time. PAST MEDICAL HISTORY: History of COPD, history of myocardial infarction, history of DJD, history of pneumonia. MEDICATIONS: Home medications are vitamin C, multivitamins, Cherelle-D, Colace, Tylenol, Spiriva, Zocor, Singulair, Lopressor, Celexa, calcium, Symbicort, aspirin, doses reviewed. ALLERGIES: CODEINE, PENICILLIN AND HONEY BEE VENOM, SULFA. FAMILY HISTORY: Unknown. SOCIAL HISTORY: Previous history of smoking. No history of current smoking or alcohol. REVIEW OF SYSTEMS: ENT: Diminished vision. Diminished hearing. CARDIOVASCULAR system: As mentioned earlier. RESPIRATORY: As mentioned earlier. GI: As mentioned earlier. : No dysuria. NERVOUS SYSTEM: No numbness. Generalized weakness. ALLERGY/IMMUNOLOGY: No asthma or hayfever. MUSCULOSKELETAL as mentioned earlier. HEMATOLOGY: No history of anemia. ENDOCRINE: No history of diabetes or hypothyroidism. CONSTITUTIONAL: As mentioned earlier. DERMATOLOGY: Negative. RHEUMATOLOGY: Negative. PSYCHIATRIC: As mentioned earlier. PHYSICAL EXAM: Patient is alert, oriented x3. The pulse is 85, blood pressure 130/74, respiration 20, temperature 98.2, pulse ox 94% on room air. HEENT: Conjunctivae normal. NECK: No JVD. CARDIOVASCULAR: S1, S2 muffled. RESPIRATIONS: Breath sounds diminished in the bases. A few scattered rhonchi. ABDOMEN: Soft, nontender. No mass palpable. LEGS: No edema. No swelling. NERVOUS SYSTEM: Higher functions as mentioned earlier. Moves all four limbs. No focal motor or sensory deficits. LYMPHATICS: No lymph nodes palpable in the neck, axillae or groin. SKIN: No ulcer, no rash and no bleeding. JOINTS: No active deforming arthropathy. LAB: Lymphocytes 0.6 and creatinine is 1.12. ASSESSMENT: 1. Acute renal failure from dehydration with prerenal acute tubular necrosis and weakness. 2 upper respiratory infection. 3. Status post Covid 19 booster. 4. History of chronic obstructive pulmonary disease. 5. History of myocardial infarction. 6. History of degenerative joint disease. 7. History of pneumonia. 8. History of skin cancer. 9. History of bronchitis. 10.Hysterectomy. 11.History of tonsillectomy. 12.History of degenerative joint disease. 13.FULL CODE. RECOMMENDATIONS AND DISCUSSION: In this 85-year-old woman who presented with multiple complex medical issues, we will monitor the patient closely, continue the current medications, management and symptomatic treatment. Recommend continued IV fluids. Repeat labs in the morning. DVT prophylaxis. Otherwise, a chest x-ray was reviewed did not show any fluid overload or any other pulmonary abnormalities or pneumonia. Increase ambulation. Closely follow with Pulmonary and Cardiology. Further recommendations to follow. Copy of this dictation is being forwarded to Dr. Carmina Wolfe who is the primary physician. MMODL / IJN: [id number] / MELONIE
[2021-05-04 02:05] VITALS: RESP 16
[2021-05-04] MEDS: SODIUM CHLORIDE 0.9% 1,000 ML IV SCH ×2 (04:54→15:33)
[2021-05-04 05:31] LABS: Basophils % (A) 0 %; Eosinophils # (A) 0.1 k/uL (0-0.7); Eosinophils % (A) 3 %; HCT 34.3 % (34.0-46.0); HGB 11.7 gm/dL (11.4-16.0); Lymphocytes # (A) 0.8 k/uL (1.0-4.8); Lymphocytes % (A) 21 %; MCH 32.8 pg (25.0-35.0); MCHC 34.1 g/dL (31.0-37.0); MCV 96.4 fL (80.0-100.0); Mean Platelet Volume 6.7; Monocytes # (A) 0.4 k/uL (0-1.0); Monocytes % (A) 9 %; Neutrophils # (A) 2.5 k/uL (1.3-7.7); Neutrophils % (A) 64 %; Platelet Count 121 k/uL (150-450); RBC 3.56 m/uL (3.80-5.40); RDW 12.9 % (11.5-15.5); WBC 3.9 k/uL (3.8-10.6)
[2021-05-04 05:39] LABS: Calcium 8.5 mg/dL (8.4-10.2); Potassium 4.1 mmol/L (3.5-5.1)
[2021-05-04] MEDS ORDERED: MULTIVITAMINS, THERA 1 EACH TAB PO SCH (09:00)
[2021-05-04] MEDS: CALCIUM CARBONATE 500 MG CHEWABLE PO SCH ×2 (09:26→09:29)
[2021-05-04] MEDS: ASPIRIN 81 MG PO SCH (09:26)
[2021-05-04] MEDS: METOPROLOL TARTRATE 25 MG TAB PO SCH (09:27)
[2021-05-04] MEDS: ATORVASTATIN 10 MG TAB PO SCH (09:27)
[2021-05-04] MEDS: MONTELUKAST 10 MG TAB PO SCH (09:27)
[2021-05-04] MEDS: SYMBICORT 160-4.5 MCG INHALER INHALATION SCH (09:40)
--- NOTE | 2021-05-04 10:38 | ECHOF ---
Referral Reason:LV function MEASUREMENTS -------- HEIGHT: 162.6 cm WEIGHT: 54.4 kg BP: 132/75 RVIDd: 2.9 cm (< 3.3) IVSd: 0.8 cm (0.6 - 1.1) LVIDd: 3.9 cm (3.9 - 5.3) LVPWd: 0.9 cm (0.6 - 1.1) IVSs: 1.2 cm LVIDs: 2.7 cm LVPWs: 1.3 cm LA Diam: 3.0 cm (2.7 - 3.8) Ao Diam: 3.2 cm (2.0 - 3.7) AV Cusp: 1.9 cm (1.5 - 2.6) MV EXCURSION: 11.562 mm (> 18.000) MV EF SLOPE: 43 mm/s (70 - 150) EPSS: 0.5 cm MV E Isidro: 0.58 m/s MV DecT: 387 ms MV A Isidro: 1.10 m/s MV E/A Ratio: 0.53 RAP: 5.00 mmHg RVSP: 34.50 mmHg FINDINGS -------- Sinus rhythm. This was a technically good study. The left ventricular size is normal. Left ventricular wall thickness is normal. Overall left vent ricular systolic function is normal with, an EF between 60 - 65 %. The right ventricle is normal in size. The left atrium is normal in size. The right atrium is normal in size. Interatrial and interventricular septum intact. The aortic valve is trileaflet, and appears structurally normal. No aortic stenosis or regurgitation. There is trace mitral regurgitation. Mild tricuspid regurgitation present. There is mild pulmonary hypertension. The right ventricular systolic pressure, as measured by Doppler, is 34.50mmHg. Trace/mild (physiologic) pulmonic regurgitation. The aortic root size is normal. Normal inferior vena cava with normal inspiratory collapse consistent with estimated right atrial pre ssure of 5 mmHg. There is no pericardial effusion. CONCLUSIONS -------- 1. The left ventricular size is normal. 2. Left ventricular wall thickness is normal. 3. Overall left ventricular systolic function is normal with, an EF between 60 - 65 %. 4. The aortic valve is trileaflet, and appears structurally normal. No aortic stenosis or regurgitati on. 5. There is trace mitral regurgitation. 6. Mild tricuspid regurgitation present. 7. There is mild pulmonary hypertension. 8. The right ventricular systolic pressure, as measured by Doppler, is 34.50mmHg. 9. Trace/mild (physiologic) pulmonic regurgitation. 10. The aortic root size is normal. 11. Normal inferior vena cava with normal inspiratory collapse consistent with estimated right atrial pressure of 5 mmHg. 12. There is no pericardial effusion. AUDIO PRODUCTION MANAGER: Kena Marshall RDCS
[2021-05-04] MEDS: CITALOPRAM HYDROBROMIDE 10 MG TAB PO SCH (11:00)
--- NOTE | 2021-05-04 11:07 | P.PN ---
Subjective Progress Note Date: 05/04/21 HISTORY OF PRESENT ILLNESS: This is a 85-year-old female with a past medical history significant for COPD, and hyperlipidemia, hypertension. Patient follows in the office with Dr. Chandler. We have been asked to see the patient in consultation for weakness, dehydration, and shortness of breath. Patient examined at the bedside. Patient states she got her Covid booster on 05/01/2021. She states she started getting a cough yesterday that was persistent. She states she was coughing so bad she would gag and feel nauseous. She denies having any episodes of vomiting. She denies fe eling short of breath. She denies chest pain or pressure. She also reports feeling cold yesterday and laying on the couch all day with multiple blankets. However, she states she did not check her temperature. She called her granddaughter who wanted her to come to the hospital to be evaluated. EKG reveals sinus mechanism with no signs of acute ischemia Chest xray negative for acute process Laboratory data: WBC 6.2. Hemoglobin 12.6. Platelet count 250. Sodium 137. Potassium 4.4. BUN 25. Creatinine 1.12. Troponin negative 1. Current home cardiac medications include simvastatin 20 mg daily, metoprolol tartrate 25 mg twice a day, aspirin 81 mg daily Most recent echocardiogram obtained in December 2017 EF 50-55%, basal inferior LV wall hypokinesis, moderate to severe mitral regurgitation, moderate tricuspid regurgitation, and mild pulmonary hypertension Cardiac catheterization history: 2018 revealing normal coronary arteries 05/04/2021 Patient examined this morning at the bedside. She denies chest pain or pressure. Denies SOB. Vital signs are stable. She's maintaining sinus mechanism. Echocardiogram completed revealing ejection fraction 60-65%, trace mitral regurgitation, mild tricuspid regurgitation, and mild pulmonary hypertension PHYSICAL EXAM: VITAL SIGNS: Reviewed. GENERAL: Well-developed in no acute distress. HEENT: Head is normocephalic. Pupils are equal, round. Sclerae anicteric. Mucous membranes of the mouth are moist. Neck supple. No JVD or thyromegaly LUNGS: Respirations even and unlabored. Lungs essentially clear to auscultation bilaterally. HEART: Regular rate and rhythm. S1 and S2 heard. Systolic murmur noted. ABDOMEN: Soft. Nondistended. Nontender. EXTREMITIES: Normal range of motion. No clubbing or cyanosis. Peripheral pulses intact. No lower extremity edema NEUROLOGIC: Awake and alert. Oriented x 3. ASSESSMENT: Generalized weakness and cough, s/p covid booster Shortness of breath, ruled out, patient denies having any SOB Hypertension Hyperlipidemia COPD Valvular heart disease PLAN: She is currently stable from a cardiac standpoint No further inpatient recommendations from a cardiac perspective The patient may be discharged home today. We will sign off. Please reconsult if needed. Nurse practitioner note has been reviewed by physician. Signing provider agrees with the documented findings, assessment, and plan of care. Objective - Vital Signs Vital signs: Vital Signs Temp 98.3 F 05/04/21 09:45 Pulse 71 05/04/21 09:45 Resp 16 05/04/21 09:45 BP 136/75 05/04/21 09:45 Pulse Ox 95 05/04/21 09:45 Intake & Output 05/03/21 05/04/21 05/04/21 18:59 06:59 18:59 Intake Total 600 Balance 600 Intake: Intake, IV Titration 600 Amount Sodium Chloride 0.9% 1, 600 000 ml @ 75 mls/hr IV . [id number] [facility] Rx#:[id number] Other: # Voids 1 2 - Labs CBC & Chem 7: 05/04/21 04:52 05/04/21 04:52 Labs: Abnormal Lab Results - Last 24 Hours (Table) 05/04/21 05/04/21 Range/Units 04:52 04:52 RBC 3.56 L (3.80-5.40) m/uL Plt Count 121 L (150-450) k/uL Lymphocytes # 0.8 L (1.0-4.8) k/uL Sodium 136 L (137-145) mmol/L BUN 20 H (7-17) mg/dL
[2021-05-04] MEDS: TIOTROPIUM 2.5 MCG INHALER INHALATION SCH (12:31)
--- NOTE | 2021-05-04 14:14 | P.PN ---
Subjective Progress Note Date: 05/04/21 Principal diagnosis: Shortness of breath. This is a pleasant 85-year-old female patient who follows with Dr. Wolfe as her primary care provider. She has a history of skin cancer, myocardial infarction, osteoarthritis, former smoker, COPD, hyperlipidemia. She presented to the emergency room last evening with complaints of generalized weakness, 2 episodes of nausea and vomiting that started yesterday morning. She had just received a CoVID booster shot the day before. Chest x-ray reveals no acute pulmonary process. White count 6.2. Hemoglobin 12.6. Sodium 137. Potassium 4.4. Creatinine 1.12. Glucose 112. Troponin negative 1. Connors virus by PCR not detected. She is seen today in consultation on the observation unit. She is currently resting quite comfortably in bed. Awake and alert in no acute distress. Maintaining O2 saturations in the 90s on room air. He's been afebrile. Hemodynamically stable. Progress note dated 05/04/2021. 85-year-old female admitted with a diagnosis of generalized weakness, fatigue, nausea, vomiting, and dehydration, secondary to coronavirus booster injection. The patient has a history of former tobacco use, with COPD, hyperlipidemia, and depression. Her primary care provider is Dr. Carmina Wolfe. Currently, she is not receiving any supplemental oxygen, or IV fluids. Lab data today includes a white count of 3.9, hemoglobin 11.7, hematocrit 34.3, and a platelet count of 121,000. Sodium 136, potassium 4.1, chlorides 106, CO2 24, anion gap 6, BUN 20, creatinine 0.95. Coronavirus testing was negative. Objective - Vital Signs Vital signs: Vital Signs Temp 98.3 F 05/04/21 09:45 Pulse 71 05/04/21 09:45 Resp 16 05/04/21 09:45 BP 136/75 05/04/21 09:45 Pulse Ox 95 05/04/21 09:45 Intake & Output 05/03/21 05/04/21 05/04/21 18:59 06:59 18:59 Intake Total 600 Balance 600 Intake: Intake, IV Titration 600 Amount Sodium Chloride 0.9% 1, 600 000 ml @ 75 mls/hr IV . [id number] [facility] Rx#:[id number] Other: # Voids 1 2 - Exam No acute distress, oriented 3. No supplemental oxygen. Room air saturations 95%. HEENT examination is grossly unremarkable. Neck supple. Full range of motion. No adenopathy thyromegaly or neck vein distention. Cardiovascular examination reveals regular rhythm rate. S1-S2 normal. No S3 or S4. No discernible murmur noted. Heart rate 71 bpm. Lungs reveal clear breath sounds. Breath sounds are equal bilaterally. No adventitious lung sounds including wheezes rhonchi or crackles. Abdomen soft bowel sounds are heard. No masses or tenderness. Extremities are intact. No cyanosis clubbing or edema. Skin is without rash or lesion. Neurologic examination is brief but nonfocal. - Labs CBC & Chem 7: 05/04/21 04:52 05/04/21 04:52 Labs: Abnormal Lab Results - Last 24 Hours (Table) 05/04/21 05/04/21 Range/Units 04:52 04:52 RBC 3.56 L (3.80-5.40) m/uL Plt Count 121 L (150-450) k/uL Lymphocytes # 0.8 L (1.0-4.8) k/uL Sodium 136 L (137-145) mmol/L BUN 20 H (7-17) mg/dL Assessment and Plan Assessment: 1 Acute generalized weakness, fatigue, nausea vomiting, dehydration suspect secondary to CoVID booster. No leukocytosis. No fever. Chest x-ray reveals no acute pulmonary process. On room air. 2 Acute renal failure secondary to dehydration. 3 Former smoker, COPD, stable and inactive on Symbicort, Spiriva and albuterol in the outpatient setting. 3 Hyperlipidemia. 4 History of depression. Plan: Plan dated 05/04/2021. The patient's doing well. The patient could be considered for possible discharge. No additional recommendations are made. The patient should follow- up with her primary care physician. Her respiratory status is stable. She's not requiring any supplemental oxygen. Most of her lab data is completely within normal range. Time with Patient: Less than 30
[2021-05-04 15:54] VITALS: BP 137/77; PULSE 61; TEMP 98.2
--- NOTE | 2021-05-05 09:50 | P.DS ---
Providers Date of admission: 05/02/21 22:24 Expected date of discharge: 05/04/21 Attending physician: Hyacinth Sullivan Consults: 05/03/21 12:29 Consult Physician Urgent Consulting Provider: Roberto Aburto Consult Reason/Comments: cough, weakness, dehydration Do you want consulting provider notified?: Yes Primary care physician: Antony Wolfe [facility] Course: Final diagnosis Acute renal failure from dehydration with prerenal acute tubular necrosis and weakness Upper respiratory infection Status post COVID-19 booster History of chronic obstructive pulmonary disease history of myocardial infarction history of degenerative joint disease history of pneumonia history of skin cancer history of bronchitis hysterectomy history of tonsillectomy history of degenerative joint disease Full code Discharge disposition Patient is being discharged in a stable condition with guarded prognosis to home. Patient will follow-up with Dr. Wolfe in the outpatient setting upon discharge. Patient is to also follow up with cardiology and pulmonary in the outpatient setting. Total time taken is greater than 35 minutes. Hospital course This is a 85-year-old female who was recently admitted with extreme weakness along with dehydration status post Covid booster immunization and was being closely monitored. Patient continues with a cough and some mild upper respiratory symptoms and chest discomfort and was evaluated by cardiology and pulmonary as she follows them in the outpatient setting and will continue to do so on discharge. Patient was hydrated and labs improved and feeling much better and is requesting to go home. Patient is tolerating diet with no reports of nausea or vomiting noted. Encouraged oral intake especially proteins. Currently no reports of chest pain, shortness of breath, or palpitations. Patient is afebrile. No reports of nausea or vomiting and patient is tolerating diet. Patient will be discharged home today. Guarded prognosis On exam vital signs are stable. Cardio S1, S2 are muffled. Respiratory system shows diminished breath sounds at the bases with no wheezing or rhonchi noted. Abdomen is soft, and nontender. Nervous system shows no focal deficits. Please refer to medication reconciliation sheet for a list of medications. Patient Condition at Discharge: Good Plan - Discharge Summary Discharge Rx Participant: No New Discharge Prescriptions: New Benzonatate [Tessalon Perles] 100 mg PO TID PRN #10 cap PRN Reason: Cough Continue Simvastatin [Zocor] 20 mg PO DAILY Budesonide-Formot 160-4.5 Mcg [Symbicort 160-4.5 Mcg Inhaler] 2 puff INHALATION RT-BID Tiotropium 18 Mcg/Puff [Spiriva] 1 cap INHALATION RT-DAILY Citalopram Hydrobromide [CeleXA] 10 mg PO DAILY Montelukast [Singulair] 10 mg PO DAILY Calcium Carbonate [Calcium] 600 mg PO DAILY Aspirin EC [Ecotrin Low Dose] 81 mg PO DAILY Metoprolol Tartrate [Lopressor] 25 mg PO BID Multivit-Min/Iron/Folic/Lutein [Centrum Silver Women Tablet] 1 tab PO DAILY Vitamin C/Biotin [Hair, Skin and Nails Chew] 1 tab PO DAILY Equate Dry Eye Relief 1 - 2 drop BOTH EYES QID PRN PRN Reason: DRY EYES Sodium Chloride [Saline Nasal [place]] 1 spray EA NOSTRIL DAILY PRN PRN Reason: Congestion Fexofenadine/Pseudoephedrine [Cherelle-D 24 Hour Tablet] 1 tab PO DAILY PRN PRN Reason: Allergy Symptoms Docusate 50mg 50 mg PO DAILY PRN PRN Reason: Constipation Acetaminophen Tab [Tylenol] 500 mg PO Q6H PRN PRN Reason: Pain Or Fever > 100.5 Discharge Medication List Budesonide-Formot 160-4.5 Mcg [Symbicort 160-4.5 Mcg Inhaler] 2 puff INHALATION RT-BID 01/25/15 [History] Simvastatin [Zocor] 20 mg PO DAILY 01/25/15 [History] Tiotropium 18 Mcg/Puff [Spiriva] 1 cap INHALATION RT-DAILY 11/01/15 [History] Citalopram Hydrobromide [CeleXA] 10 mg PO DAILY 05/27/17 [History] Calcium Carbonate [Calcium] 600 mg PO DAILY 01/06/19 [History] Montelukast [Singulair] 10 mg PO DAILY 01/06/19 [History] Aspirin EC [Ecotrin Low Dose] 81 mg PO DAILY 12/08/19 [History] Metoprolol Tartrate [Lopressor] 25 mg PO BID 12/08/19 [History] Multivit-Min/Iron/Folic/Lutein [Centrum Silver Women Tablet] 1 tab PO DAILY 12/08/19 [History] Acetaminophen Tab [Tylenol] 500 mg PO Q6H PRN 05/02/21 [History] Docusate 50mg 50 mg PO DAILY PRN 05/02/21 [History] Equate Dry Eye Relief 1 - 2 drop BOTH EYES QID PRN 05/02/21 [History] Fexofenadine/Pseudoephedrine [Cherelle-D 24 Hour Tablet] 1 tab PO DAILY PRN 05/02/21 [History] Sodium Chloride [Saline Nasal [place]] 1 spray EA NOSTRIL DAILY PRN 05/02/21 [History] Vitamin C/Biotin [Hair, Skin and Nails Chew] 1 tab PO DAILY 05/02/21 [History] Benzonatate [Tessalon Perles] 100 mg PO TID PRN #10 cap 05/04/21 [Rx] Follow up Appointment(s)/Referral(s): Antony Wolfe DO [Primary Care Provider] - 1-2 days Patient Instructions/Handouts: Weakness (DC) Activity/Diet/Wound Care/Special Instructions: Activity Limited until follow-up Follow-up with primary care provider on discharge Continue taking your medications as prescribed Continue current heart healthy diet Discharge Disposition: HOME SELF-CARE
== END 2021-05-04 16:31 | disposition home or self-care (01) ==
LOC: EC 18:19 → 6NMEDSUR 22:24 → 3NCARDOBS 05-03 08:40 → 6NMEDSUR 05-04 08:05
PROVIDERS: ADMIT Hospitalist; ATTEND Hospitalist
DX: N17.0 Acute kidney failure with tubular necrosis (principal); E86.0 Dehydration; J44.0 Chronic obstructive pulmonary disease with (acute) lower respiratory infection; I25.2 Old myocardial infarction; M19.90 Unspecified osteoarthritis, unspecified site; I10 Essential (primary) hypertension; Z20.822 Contact with and (suspected) exposure to COVID-19; I08.1 Rheumatic disorders of both mitral and tricuspid valves; I27.20 Pulmonary hypertension, unspecified; E78.5 Hyperlipidemia, unspecified; R29.6 Repeated falls; F32.A Depression, unspecified; Z79.82 Long term (current) use of aspirin; Z79.51 Long term (current) use of inhaled steroids; Z79.899 Other long term (current) drug therapy; Z88.5 Allergy status to narcotic agent; Z88.2 Allergy status to sulfonamides; Z88.0 Allergy status to penicillin; Z91.030 Bee allergy status; Z88.8 Allergy status to other drugs, medicaments and biological substances; Z87.891 Personal history of nicotine dependence; Z87.01 Personal history of pneumonia (recurrent); Z90.710 Acquired absence of both cervix and uterus; Z85.828 Personal history of other malignant neoplasm of skin
CPT/HCPCS: 96360; 96361 ×2; 99285; 36415; 94640 ×3; 93005; 93306; 80053; 80048; 83735; 84484; 85025 ×2; 85610; 85730; 81001; 87635; 71046; G0378 ×3

== ENCOUNTER → 2021-08-29 | Outpatient (CLI) | payer MEDICARE, BC ==
--- NOTE | 2021-09-01 06:53 | US ---
EXAMINATION TYPE: US arterial LE single level DATE OF EXAM: 08/29/2021 3:16 PM CLINICAL HISTORY: R09.89 sx involving circulatory system. History of heart attack and hyperlipidemia. Diminished pulses and feet. Doppler Waveforms: Right: Biphasic Left: Monophasic Ankle-Brachial Indices: Right: 1.30 Left: CNO Toe Brachial Indices: Right: 0.86 Left: 0.99 IMPRESSION: Normal ABIs bilaterally. Loss of phasicity is abnormal could imply significant proximal stenosis. Differential includes technologist error. Follow-up advised.
== END | disposition home or self-care (01) ==
LOC: RADUSWWP 14:42
PROVIDERS: ATTEND Family Medicine
DX: R09.89 Other specified symptoms and signs involving the circulatory and respiratory systems (principal)
CPT/HCPCS: 93922

== ENCOUNTER 2021-12-04 11:54 | Emergency (ER) | payer MEDICARE, BC ==
[2021-12-04 12:07] VITALS: BP 127/75; PULSE 68; RESP 22; TEMP 97.9
[2021-12-04] MEDS ORDERED: DIPH,PERTUS(ACELL)TETVAC-LF 0.5 ML VIAL IM ONE (12:22)
--- NOTE | 2021-12-04 12:25 | ED ---
General Adult HPI - General Chief complaint: Wound/Laceration Stated complaint: Skin tear Time Seen by Provider: 12/04/21 12:18 Source: patient, RN notes reviewed, old records reviewed Mode of arrival: ambulatory Limitations: no limitations - History of Present Illness Initial comments: 86-year-old female presents status post fall with skin tear to the right elbow and left upper arm. Patient denies head injury. Denies neck pain. Denies chest or abdominal pain. Denies any lower extremity injury. She states she tripped. She had a skin tear to the left upper arm and family was concerned. The patient has no shoulder pain, no elbow pain bilaterally. Her tetanus is not up-to-date. - Related Data Home Medications Medication Instructions Recorded Confirmed Budesonide-Formot 160-4.5 Mcg 2 puff INHALATION RT-BID 01/25/15 08/21/21 [Symbicort 160-4.5 Mcg Inhaler] Simvastatin [Zocor] 20 mg PO DAILY 01/25/15 08/21/21 Tiotropium 18 Mcg/Puff [Spiriva] 1 cap INHALATION RT-DAILY 11/01/15 08/21/21 Citalopram Hydrobromide [CeleXA] 10 mg PO DAILY 05/27/17 08/21/21 Calcium Carbonate [Calcium] 600 mg PO DAILY 01/06/19 08/21/21 Montelukast [Singulair] 10 mg PO DAILY 01/06/19 08/21/21 Aspirin EC [Ecotrin Low Dose] 81 mg PO DAILY 12/08/19 08/21/21 Metoprolol Tartrate [Lopressor] 25 mg PO BID 12/08/19 08/21/21 Multivit-Min/Iron/Folic/Lutein 1 tab PO DAILY 12/08/19 08/21/21 [Centrum Silver Women Tablet] Equate Dry Eye Relief 1 - 2 drop BOTH EYES QID PRN 05/02/21 08/21/21 Sodium Chloride [Saline Nasal 1 spray EA NOSTRIL DAILY PRN 05/02/21 08/21/21 [place]] Vitamin C/Biotin [Hair, Skin and 1 tab PO DAILY 05/02/21 08/21/21 Nails Chew] Acetaminophen [Tylenol Arthritis] 650 mg PO QID 08/21/21 08/21/21 Previous Rx's Medication Instructions Recorded Oseltamivir 6Mg/ml Oral Susp 30 mg PO Q12HR 2 Days #4 ml 08/23/21 [Tamiflu] predniSONE 0 mg PO DIRECTED 8 Days #20 tab 08/23/21 Allergies Allergy/AdvReac Type Severity Reaction Status Date / Time Penicillins Allergy Unknown Rash/Hives, Verified 12/04/21 12:06 Throat Swelling venom-honey bee Allergy Unknown Anaphylaxis Verified 12/04/21 12:06 [bee venom (honey bee)] iron Allergy Unknown Verified 12/04/21 12:06 codeine AdvReac Unknown Nausea & Verified 12/04/21 12:06 Vomiting Sulfa (Sulfonamide AdvReac Unknown Nausea Verified 12/04/21 12:06 Antibiotics) Review of Systems ROS Statement: Those systems with pertinent positive or pertinent negative responses have been documented in the HPI. ROS Other: All systems not noted in ROS Statement are negative. Past Medical History Past Medical History: Cancer, COPD, Myocardial Infarction ([place]), Osteoarthritis (OA), Pneumonia Additional Past Medical History / Comment(s): HX OF SKIN CANCER, BRONCHITIS Last Myocardial Infarction Date:: unknown if [place] History of Any Multi-Drug Resistant Organisms: None Reported Past Surgical History: Hysterectomy, Tonsillectomy Additional Past Surgical History / Comment(s): rotator cuff rt, lt ankle with quan, breast cyst removed, BREAST BIOPSY, EGD WITH DILATION. Past Anesthesia/Blood Transfusion Reactions: No Reported Reaction Additional Past Anesthesia/Blood Transfusion Reaction / Comment(s): PT DOES NOT KNOW FAMILY HX (FOSTER CHILD) Past Psychological History: No Psychological Hx Reported Smoking Status: Never smoker Past Alcohol Use History: None Reported Past Drug Use History: None Reported - Past Family History Mother Family Medical History: No Reported History Additional Family Medical History / Comment(s): STATES UNKNOWN FAMILY HX. General Exam Limitations: no limitations General appearance: alert, in no apparent distress Head exam: Present: atraumatic, normocephalic Eye exam: Present: normal appearance, PERRL ENT exam: Present: normal exam Neck exam: Present: normal inspection. Absent: tenderness, meningismus Respiratory exam: Present: normal lung sounds bilaterally. Absent: respiratory distress, wheezes Cardiovascular Exam: Present: regular rate, normal rhythm GI/Abdominal exam: Present: soft. Absent: distended, tenderness Extremities exam: Present: full ROM, other (3 cm round skin tear to the left tricep region, 2 cm skin tear to the right elbow with some adjacent ecchymosis. No repairable laceration.). Absent: tenderness Neurological exam: Present: alert, oriented X3, CN II-XII intact. Absent: motor sensory deficit Psychiatric exam: Present: normal affect, normal mood Skin exam: Present: warm, dry Course Vital Signs 12/04/21 12:03 Temperature 97.9 F Pulse Rate 68 Respiratory 22 Rate Blood Pressure 127/75 O2 Sat by Pulse 95 Oximetry Medical Decision Making - Medical Decision Making 86-year-old female with bilateral upper extremity skin tears. No pain associated. No bony abnormality. Patient has normal range of motion of bilateral shoulders, bilateral elbows, bilateral wrists. No head or neck trauma. Her tetanus is updated and skin tears are repaired with Steri-Strips Disposition Clinical Impression: Skin tear of elbow without complication Disposition: HOME SELF-CARE Condition: Good Instructions (If sedation given, give patient instructions): Skin Tear (ED) Is patient prescribed a controlled substance at d/c from ED?: No Referrals: Antony Wolfe DO [Primary Care Provider] - 1-2 days Time of Disposition: 12:45
== END 2021-12-04 13:13 | disposition home or self-care (01) ==
LOC: EC 11:54
DX: S51.011A Laceration without foreign body of right elbow, initial encounter (principal); J44.9 Chronic obstructive pulmonary disease, unspecified; I25.2 Old myocardial infarction; Z91.030 Bee allergy status; Z23 Encounter for immunization; Z88.6 Allergy status to analgesic agent; Z88.0 Allergy status to penicillin; Z88.2 Allergy status to sulfonamides; W19.XXXA Unspecified fall, initial encounter
CPT/HCPCS: 90471; 90715; 99282

== ENCOUNTER 2021-12-06 08:39 | Emergency (ER) | payer MEDICARE, BC ==
[2021-12-06 08:45] VITALS: BP 127/71; PULSE 57; RESP 20; TEMP 97.8
--- NOTE | 2021-12-06 09:16 | ED ---
Recheck HPI - General Chief Complaint: Recheck/Abnormal Lab/Rx Stated Complaint: arm injury Time Seen by Provider: 12/06/21 08:47 Source: patient, RN notes reviewed Mode of arrival: ambulatory Limitations: no limitations - History of Present Illness Initial Comments: This is an 86-year-old female who presents to the emergency department requesting a bandage change. Patient was here 2 days ago and had Steri-Strips and a bandage placed over a skin tear on her left arm. States she was afraid to remove the bandage herself and wanted to make sure that the wound was not infected. Denies any fevers, chills, sore throat, cough, dyspnea, chest pain, palpitations, abdominal pain, nausea, vomiting, diarrhea, back pain, or headaches. MD Complaint: wound re-check Initial Visit For: other (skin tear) Returns Today for: wound recheck - Related Data Home Medications Medication Instructions Recorded Confirmed Budesonide-Formot 160-4.5 Mcg 2 puff INHALATION RT-BID 01/25/15 08/21/21 [Symbicort 160-4.5 Mcg Inhaler] Simvastatin [Zocor] 20 mg PO DAILY 01/25/15 08/21/21 Tiotropium 18 Mcg/Puff [Spiriva] 1 cap INHALATION RT-DAILY 11/01/15 08/21/21 Citalopram Hydrobromide [CeleXA] 10 mg PO DAILY 05/27/17 08/21/21 Calcium Carbonate [Calcium] 600 mg PO DAILY 01/06/19 08/21/21 Montelukast [Singulair] 10 mg PO DAILY 01/06/19 08/21/21 Aspirin EC [Ecotrin Low Dose] 81 mg PO DAILY 12/08/19 08/21/21 Metoprolol Tartrate [Lopressor] 25 mg PO BID 12/08/19 08/21/21 Multivit-Min/Iron/Folic/Lutein 1 tab PO DAILY 12/08/19 08/21/21 [Centrum Silver Women Tablet] Equate Dry Eye Relief 1 - 2 drop BOTH EYES QID PRN 05/02/21 08/21/21 Sodium Chloride [Saline Nasal 1 spray EA NOSTRIL DAILY PRN 05/02/21 08/21/21 [place]] Vitamin C/Biotin [Hair, Skin and 1 tab PO DAILY 05/02/21 08/21/21 Nails Chew] Acetaminophen [Tylenol Arthritis] 650 mg PO QID 08/21/21 08/21/21 Previous Rx's Medication Instructions Recorded Oseltamivir 6Mg/ml Oral Susp 30 mg PO Q12HR 2 Days #4 ml 08/23/21 [Tamiflu] predniSONE 0 mg PO DIRECTED 8 Days #20 tab 08/23/21 Allergies Allergy/AdvReac Type Severity Reaction Status Date / Time Penicillins Allergy Unknown Rash/Hives, Verified 12/06/21 08:45 Throat Swelling venom-honey bee Allergy Unknown Anaphylaxis Verified 12/06/21 08:45 [bee venom (honey bee)] iron Allergy Unknown Verified 12/06/21 08:45 codeine AdvReac Unknown Nausea & Verified 12/06/21 08:45 Vomiting Sulfa (Sulfonamide AdvReac Unknown Nausea Verified 12/06/21 08:45 Antibiotics) Review of Systems ROS Statement: Those systems with pertinent positive or pertinent negative responses have been documented in the HPI. ROS Other: All systems not noted in ROS Statement are negative. Past Medical History Past Medical History: Cancer, COPD, Myocardial Infarction ([place]), Osteoarthritis (OA), Pneumonia Additional Past Medical History / Comment(s): HX OF SKIN CANCER, BRONCHITIS Last Myocardial Infarction Date:: unknown if [place] History of Any Multi-Drug Resistant Organisms: None Reported Past Surgical History: Hysterectomy, Tonsillectomy Additional Past Surgical History / Comment(s): rotator cuff rt, lt ankle with quan, breast cyst removed, BREAST BIOPSY, EGD WITH DILATION. Past Anesthesia/Blood Transfusion Reactions: No Reported Reaction Additional Past Anesthesia/Blood Transfusion Reaction / Comment(s): PT DOES NOT KNOW FAMILY HX (FOSTER CHILD) Past Psychological History: No Psychological Hx Reported Smoking Status: Never smoker Past Alcohol Use History: None Reported Past Drug Use History: None Reported - Past Family History Mother Family Medical History: No Reported History Additional Family Medical History / Comment(s): STATES UNKNOWN FAMILY HX. General Exam Limitations: no limitations General appearance: alert, in no apparent distress Head exam: Present: atraumatic, normocephalic, normal inspection Respiratory exam: Present: normal lung sounds bilaterally. Absent: respiratory distress, wheezes, rales, rhonchi, stridor Cardiovascular Exam: Present: regular rate, normal rhythm, normal heart sounds. Absent: systolic murmur, diastolic murmur, rubs, gallop, clicks Neurological exam: Present: alert, oriented X3, CN II-XII intact Psychiatric exam: Present: normal affect, normal mood Skin exam: Present: other (Skin tear on the lateral aspect of the left upper arm. Steri-Strips intact. No surrounding erythema or purulent drainage. ) Course Vital Signs 12/06/21 08:42 Temperature 97.8 F Pulse Rate 57 L Respiratory 20 Rate Blood Pressure 127/71 O2 Sat by Pulse 96 Oximetry Medical Decision Making - Medical Decision Making This is an 86-year-old female who presents to the emergency department for a bandage change to the skin tear of the left upper arm. The bandages were ken nged. The skin tear reveals no evidence of infection such as surrounding erythema or purulent drainage. She is also afebrile. Advised that she let the Steri-Strips fall off on their own and if she exhibits any signs of infection such as fevers, purulent drainage from the wound, surrounding erythema, or increased heat, she should return to the emergency department for further evaluation. Return precautions reviewed in depth, the patient is instructed to return to the emergency department with any new, worsening, or concerning symptoms. Patient verbalized understanding. This case was discussed in detail with the attending ED physician. Presentation, findings, and treatment plan discussed in detail as well. Disposition Clinical Impression: Dressing change or removal, nonsurgical wound Disposition: HOME SELF-CARE Instructions (If sedation given, give patient instructions): Bandage Change (ED), Skin Tear (ED) Additional Instructions: Return to the emergency department with any new, worsening, or concerning symptoms. Is patient prescribed a controlled substance at d/c from ED?: No Referrals: Antony Wolfe DO [Primary Care Provider] - 1-2 days
== END 2021-12-06 09:25 | disposition home or self-care (01) ==
LOC: EC 08:39
DX: Z48.00 Encounter for change or removal of nonsurgical wound dressing (principal); I25.2 Old myocardial infarction; J44.9 Chronic obstructive pulmonary disease, unspecified; M19.90 Unspecified osteoarthritis, unspecified site; Z79.82 Long term (current) use of aspirin; Z79.51 Long term (current) use of inhaled steroids; Z79.899 Other long term (current) drug therapy
CPT/HCPCS: 99282

== ENCOUNTER → 2022-02-22 | Outpatient (CLI) | payer MEDICARE, BC ==
--- NOTE | 2022-02-23 17:34 | MM ---
Reason for Exam: Screening (asymptomatic). Last mammogram was performed 3 year(s) and 2 month(s) ago. Patient History: Menarche at age 16. First Full-Term at age 21. Hysterectomy at age 45. Postmenopausal. Other cancer. 1969, Benign Excisional Biopsy on the right side. 1969, Benign Excisional Biopsy on the left side. High risk Core Biopsy. 12/12/2015, Benign Core Biopsy on the left side. 09/30/2006, Benign Core Biopsy on the right side. Prior Study Comparison: 11/23/2015 Bilateral Screening Mammogram, [facility]. 12/12/2015 Left Diagnostic Mammogram, [facility]. 01/03/2016 Left Diagnostic Mammogram, [facility]. 02/28/2017 Bilateral Diagnostic Mammogram, [facility]. 12/18/2018 Bilateral Diagnostic Mammogram, [facility]. Tissue Density: The breast tissue is extremely dense which could obscure a lesion on mammography. Findings: Analyzed By CAD. Scattered coarse calcifications are present greater on the right. No significant interval changes are evident. No suspicious groups of microcalcifications, spiculated or lobular masses, architectural distortion or other secondary signs of malignancy are mammographically apparent. Overall Assessment: Benign, BI-RAD 2 Management: Screening Mammogram of both breasts in 1 year. A negative mammogram report should not preclude additional follow up of suspicious palpable abnormalities. Patient should continue monthly self breast exam. A clinical breast exam by your physician is recommended on an annual basis and results should be correlated with mammographic findings. Electronically signed and approved by: Pedro Mendoza D.O. Radiologis
== END ==
LOC: RADMAMWWP 10:18
PROVIDERS: ATTEND Family Medicine
DX: Z12.31 Encounter for screening mammogram for malignant neoplasm of breast (principal); Z12.39 Encounter for other screening for malignant neoplasm of breast
CPT/HCPCS: 77063; 77067

== ENCOUNTER → 2022-02-23 | Outpatient (CLI) | payer MEDICARE, BC ==
[2022-02-23 08:57] VITALS: BP 163/80; PULSE 54; RESP 54; TEMP 97.8
== END | disposition home or self-care (01) ==
LOC: PROCWHC3 08:44
PROVIDERS: ATTEND Nurse Practitioner Family
DX: M81.0 Age-related osteoporosis without current pathological fracture (principal)
CPT/HCPCS: 96372; J0897

== ENCOUNTER 2022-03-02 18:24 | Emergency (ER) | payer MEDICARE, BC ==
[2022-03-02 19:18] VITALS: BP 157/76; PULSE 65; RESP 20; TEMP 97.8
--- NOTE | 2022-03-02 20:11 | CT ---
EXAMINATION TYPE: CT brain olivier wo con DATE OF EXAM: 03/02/2022 COMPARISON: 12/08/2019 HISTORY: Fall CT DLP: 898.6 mGycm Automated exposure control for dose reduction was used. Images of the brain and cervical spine obtained with no contrast. There is cerebral cortical atrophy. There is no mass effect nor midline shift. No sign of intracrania l hemorrhage. There is mild hypodensity in the periventricular white matter. The calvarium is intact. The skull base is intact. The cervical vertebra have normal alignment there is degenerative disc space narrowing from C3 to C7 with spurring of the endplates. The facet joints are intact. No compression fracture. IMPRESSION: Cervical multilevel spondylotic changes. No fracture. There is posterior spurring at C4-5 and C5-6 wi th some bony spinal stenosis. Mild cerebral atrophy. No acute intracranial abnormality. No change compared to the old exam.
--- NOTE | 2022-03-02 20:15 | CT ---
EXAMINATION TYPE: CT facial bones wo con DATE OF EXAM: 03/02/2022 COMPARISON: 12/08/2019 HISTORY: Fall CT DLP: 898.6 mGycm Automated exposure control for dose reduction was used. Images obtained from the bottom of the mandible to the top of the frontal sinuses without contrast. The mandibular ring is intact. Temporomandibular joints are intact. The zygomatic arches appear nayla l. The maxilla is intact. There is normal aeration of the mastoid sinuses. Nasal bone is intact. Ther e is subcutaneous swelling anterior to the left zygoma. Orbital margins are intact. No evidence of orbital blowout fracture. No retro-orbital mass. There is fairly normal aeration of the paranasal sinuses. IMPRESSION: There is soft tissue swelling and bruising anterior to the left zygoma. No facial bone fracture..
--- NOTE | 2022-03-02 20:25 | ED ---
Fall HPI - General Chief Complaint: Fall Stated Complaint: fall, poss head injury Time Seen by Provider: 03/02/22 19:14 Source: patient Mode of arrival: ambulatory - History of Present Illness Initial Comments: Patient is an 86-year-old female presents to the emergency department for evaluation of fall. Patient states was was walking on the sidewalk when she caught her foot on a crack and tripped. Patient fell on the left side of her face near her eye. Takes baby aspirin otherwise denies blood thinner use. The fall was witnessed. Patient did not lose consciousness. Reports mild pain over left outer eyebrow. Denies other injury. She denies headache, double vision, blurry vision, lightheadedness, dizziness, chest pain, shortness of breath, nausea, vomiting. - Related Data Home Medications Medication Instructions Recorded Confirmed Budesonide-Formot 160-4.5 Mcg 2 puff INHALATION RT-BID 01/25/15 02/23/22 [Symbicort 160-4.5 Mcg Inhaler] Simvastatin [Zocor] 20 mg PO DAILY 01/25/15 02/23/22 Tiotropium 18 Mcg/Puff [Spiriva] 1 cap INHALATION RT-DAILY 11/01/15 02/23/22 Citalopram Hydrobromide [CeleXA] 10 mg PO DAILY 05/27/17 02/23/22 Calcium Carbonate [Calcium] 600 mg PO DAILY 01/06/19 02/23/22 Montelukast [Singulair] 10 mg PO DAILY 01/06/19 02/23/22 Aspirin EC [Ecotrin Low Dose] 81 mg PO DAILY 12/08/19 02/23/22 Metoprolol Tartrate [Lopressor] 25 mg PO BID 12/08/19 02/23/22 Multivit-Min/Iron/Folic/Lutein 1 tab PO DAILY 12/08/19 02/23/22 [Centrum Silver Women Tablet] Equate Dry Eye Relief 1 - 2 drop BOTH EYES QID PRN 05/02/21 02/23/22 Sodium Chloride [Saline Nasal 1 spray EA NOSTRIL DAILY PRN 05/02/21 02/23/22 [place]] Vitamin C/Biotin [Hair, Skin and 1 tab PO DAILY 05/02/21 02/23/22 N[place]w] Acetaminophen [Tylenol Arthritis] 650 mg PO QID 08/21/21 02/23/22 Previous Rx's Medication Instructions Recorded predniSONE 0 mg PO DIRECTED 8 Days #20 tab 08/23/21 Allergies Allergy/AdvReac Type Severity Reaction Status Date / Time Penicillins Allergy Unknown Rash/Hives, Verified 03/02/22 19:19 Throat Swelling venom-honey bee Allergy Unknown Anaphylaxis Verified 03/02/22 19:19 [bee venom (honey bee)] iron Allergy Unknown Verified 03/02/22 19:19 codeine AdvReac Unknown Nausea & Verified 03/02/22 19:19 Vomiting Sulfa (Sulfonamide AdvReac Unknown Nausea Verified 03/02/22 19:19 Antibiotics) Review of Systems ROS Statement: Those systems with pertinent positive or pertinent negative responses have been documented in the HPI. ROS Other: All systems not noted in ROS Statement are negative. Past Medical History Past Medical History: Cancer, COPD, Myocardial Infarction ([place]), Osteoarthritis (OA), Pneumonia Additional Past Medical History / Comment(s): HX OF SKIN CANCER, BRONCHITIS Last Myocardial Infarction Date:: unknown if [place] History of Any Multi-Drug Resistant Organisms: None Reported Past Surgical History: Hysterectomy, Tonsillectomy Additional Past Surgical History / Comment(s): rotator cuff rt, lt ankle with quan, breast cyst removed, BREAST BIOPSY, EGD WITH DILATION. Past Anesthesia/Blood Transfusion Reactions: No Reported Reaction Additional Past Anesthesia/Blood Transfusion Reaction / Comment(s): PT DOES NOT KNOW FAMILY HX (FOSTER CHILD) Past Psychological History: No Psychological Hx Reported Smoking Status: Never smoker Past Alcohol Use History: None Reported Past Drug Use History: None Reported - Past Family History Mother Family Medical History: No Reported History Additional Family Medical History / Comment(s): STATES UNKNOWN FAMILY HX. General Exam Limitations: no limitations General appearance: alert, in no apparent distress Head exam: Present: normocephalic. Absent: atraumatic (mild swelling beneath left lateral eyebrow), normal inspection Eye exam: Present: normal appearance, PERRL, EOMI Respiratory exam: Present: normal lung sounds bilaterally. Absent: respiratory distress, wheezes, rales, rhonchi, stridor Cardiovascular Exam: Present: regular rate, normal rhythm, normal heart sounds. Absent: systolic murmur, diastolic murmur, rubs, gallop, clicks Neurological exam: Present: alert, oriented X3, CN II-XII intact Psychiatric exam: Present: normal affect, normal mood Skin exam: Present: warm, dry, intact, normal color. Absent: rash Course Vital Signs 03/02/22 03/02/22 19:12 19:13 Temperature 98.0 F 97.8 F Pulse Rate 71 65 Respiratory 20 20 Rate Blood Pressure 157/76 157/76 O2 Sat by Pulse 96 96 Oximetry Medical Decision Making - Medical Decision Making This is an 86-year-old female presenting for fall. No blood thinner use. CT of the brain and C-spine without contrast shows no acute intracranial abnormality and no evidence of cervical fracture. CT of the facial bones shows soft tissue swelling and bruising anterior to the left zygoma with no facial bone fracture. Patient looks well and has minimal pain. She will be discharged with instruction to follow up with primary care provider. Dr. Quesada is my attending. Disposition Clinical Impression: Fall, Contusion Disposition: HOME SELF-CARE Condition: Good Instructions (If sedation given, give patient instructions): Black Eye (ED) Additional Instructions: Take Tylenol for pain. Avoid anti-inflammatory medication for the next 48 hours. Ice swelling near her eye. Follow-up with primary care provider in one to 2 days. Return to the emergency department if you experience new, concerning, or worsening symptoms. Is patient prescribed a controlled substance at d/c from ED?: No Referrals: Antony Wolfe DO [Primary Care Provider] - 1-2 days Time of Disposition: 20:24
== END 2022-03-02 21:00 | disposition home or self-care (01) ==
LOC: EC 18:24
DX: T14.8XXA Other injury of unspecified body region, initial encounter (principal); Z88.0 Allergy status to penicillin; Z91.030 Bee allergy status; Z88.5 Allergy status to narcotic agent; Z88.2 Allergy status to sulfonamides; J44.9 Chronic obstructive pulmonary disease, unspecified; I25.2 Old myocardial infarction; Z79.899 Other long term (current) drug therapy; W01.0XXA Fall on same level from slipping, tripping and stumbling without subsequent striking against object, initial encounter; Y93.01 Activity, walking, marching and hiking; Y92.480 Sidewalk as the place of occurrence of the external cause
CPT/HCPCS: 70450; 70486; 72125; 99284

== ENCOUNTER → 2022-09-07 | Outpatient (CLI) | payer MEDICARE, BC ==
[2022-09-07 09:25] VITALS: BP 123/76; PULSE 57; RESP 16; TEMP 97.8
== END ==
LOC: PROCWHC3 09:08
PROVIDERS: ATTEND Nurse Practitioner Family
DX: M81.0 Age-related osteoporosis without current pathological fracture (principal); Z88.0 Allergy status to penicillin; Z91.02 Food additives allergy status; Z88.5 Allergy status to narcotic agent; Z88.2 Allergy status to sulfonamides; Z88.8 Allergy status to other drugs, medicaments and biological substances; Z87.891 Personal history of nicotine dependence
CPT/HCPCS: 96372; J0897

== ENCOUNTER → 2022-10-18 | Outpatient (CLI) | payer MEDICARE, BC ==
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
== END | disposition home or self-care (01) ==
LOC: RADBDWWP 08:29
PROVIDERS: ATTEND Family Medicine
DX: M81.0 Age-related osteoporosis without current pathological fracture (principal); M85.89 Other specified disorders of bone density and structure, multiple sites
CPT/HCPCS: 77080

== ENCOUNTER → 2023-03-11 | Outpatient (CLI) | payer MEDICARE, BC ==
[~2023-03-11] MED LIST changes: -DENOSUMAB 60 MG/ML 1 ML SYRINGE SQ NR; +DENOSUMAB 60 MG/ML 1 ML SYRINGE SQ ONE
[2023-03-11 10:26] VITALS: BP 155/81; PULSE 54; RESP 16; TEMP 97.9
== END ==
LOC: PROCWHC3 09:57
PROVIDERS: ATTEND Nurse Practitioner Family
DX: M81.0 Age-related osteoporosis without current pathological fracture (principal)
CPT/HCPCS: 96372; J0897

== ENCOUNTER 2023-04-10 10:06 | Emergency (ER) | payer MEDICARE, BC ==
[2023-04-10 10:50] VITALS: RESP 18
--- NOTE | 2023-04-10 11:01 | ED ---
URI HPI - General Chief Complaint: Upper Respiratory Infection Stated Complaint: cough/chills Time Seen by Provider: 04/10/23 11:00 Source: patient, RN notes reviewed Mode of arrival: ambulatory Limitations: no limitations - History of Present Illness Initial Comments: 87-year-old female presents emergency Department chief complaint of cough congestion and body aches. Patient states she's been sick for over a week. Patient states that she feels that she may have pneumonia. Patient denies any chest pain denies any headache or dizziness no abdominal pain. - Related Data Home Medications Medication Instructions Recorded Confirmed Budesonide-Formot 160-4.5 Mcg 2 puff INHALATION RT-BID 01/25/15 03/11/23 [Symbicort 160-4.5 Mcg Inhaler] Simvastatin [Zocor] 20 mg PO DAILY 01/25/15 03/11/23 Tiotropium 18 Mcg/Puff [Spiriva] 1 cap INHALATION RT-DAILY 11/01/15 03/11/23 Citalopram Hydrobromide [CeleXA] 10 mg PO DAILY 05/27/17 03/11/23 Montelukast [Singulair] 10 mg PO DAILY 01/06/19 03/11/23 Aspirin EC [Ecotrin Low Dose] 81 mg PO DAILY 12/08/19 03/11/23 Metoprolol Tartrate [Lopressor] 25 mg PO BID 12/08/19 03/11/23 Equate Dry Eye Relief 1 - 2 drop BOTH EYES QID PRN 05/02/21 03/11/23 Sodium Chloride [Saline Nasal 1 spray EA NOSTRIL DAILY PRN 05/02/21 03/11/23 [place]] Acetaminophen [Tylenol Arthritis] 650 mg PO QID 08/21/21 03/11/23 Previous Rx's Medication Instructions Recorded predniSONE 0 mg PO DIRECTED 8 Days #20 tab 08/23/21 Doxycycline [Vibramycin] 100 mg PO BID #20 capsule 04/10/23 predniSONE [Deltasone] 20 mg PO DAILY #5 tab 04/10/23 Allergies Allergy/AdvReac Type Severity Reaction Status Date / Time Penicillins Allergy Unknown Rash/Hives, Verified 04/10/23 10:26 Throat Swelling venom-honey bee Allergy Unknown Anaphylaxis Verified 04/10/23 10:26 [bee venom (honey bee)] iron Allergy Unknown Verified 04/10/23 10:26 codeine AdvReac Unknown Nausea & Verified 04/10/23 10:26 Vomiting Sulfa (Sulfonamide AdvReac Unknown Nausea Verified 04/10/23 10:26 Antibiotics) Review of Systems ROS Statement: Those systems with pertinent positive or pertinent negative responses have been documented in the HPI. ROS Other: All systems not noted in ROS Statement are negative. Past Medical History Past Medical History: Cancer, COPD, [place]ocardial Infarction ([place]), Osteoarthritis ([place]), Pneumonia Additional Past Medical History / Comment(s): HX OF SKIN CANCER, BRONCHITIS. OSTEOPOROSIS. Last Myocardial Infarction Date:: unknown if [place] History of Any Multi-Drug Resistant Organisms: None Reported Past Surgical History: Hysterectomy, Tonsillectomy Additional Past Surgical History / Comment(s): rotator cuff rt, lt ankle with quan, breast cyst removed, BREAST BIOPSY, EGD WITH DILATION. Past Anesthesia/Blood Transfusion Reactions: No Reported Reaction Additional Past Anesthesia/Blood Transfusion Reaction / Comment(s): PT DOES NOT KNOW FAMILY HX (FOSTER CHILD) Past Psychological History: No Psychological Hx Reported Smoking Status: Former smoker Past Alcohol Use History: None Reported Past Drug Use History: None Reported - Past Family History Mother Family Medical History: No Reported History Additional Family Medical History / Comment(s): STATES UNKNOWN FAMILY HX. General Exam - General Exam Comments Initial Comments: Visual Physical Exam Vital signs reviewed General: Well-appearing, nontoxic, no acute distress. Head: Normocephalic, atraumatic Eyes: PERRLA, EOMI ENT: Airway patent Chest: Nonlabored breathing Skin: No visual rash, normal skin tone Neuro: Alert and oriented 3 Musculoskeletal: No gross abnormalities Limitations: no limitations General appearance: alert, in no apparent distress Head exam: Present: atraumatic, normocephalic, normal inspection Eye exam: Present: normal appearance, PERRL, EOMI. Absent: scleral icterus, conjunctival injection, periorbital swelling ENT exam: Present: normal exam, mucous membranes moist Neck exam: Present: normal inspection, full ROM. Absent: tenderness, meningismus, lymphadenopathy Respiratory exam: Present: rhonchi. Absent: respiratory distress, wheezes, rales, stridor Cardiovascular Exam: Present: regular rate, normal rhythm, normal heart sounds. Absent: systolic murmur, diastolic murmur, rubs, gallop, clicks Course Vital Signs 04/10/23 04/10/23 04/10/23 10:22 11:27 12:07 Temperature 99.6 F 98.8 F Pulse Rate 89 85 Respiratory 18 18 18 Rate Blood Pressure 161/75 145/86 O2 Sat by Pulse 94 L 96 Oximetry Medical Decision Making - Medical Decision Making I completed the quick note portion of this chart signed Bijan Manzanares PA-C Was pt. sent in by a medical professional or institution ([employer], ASSOCIATE PROFESSOR OF GEOLOGY, urgent care, hospital, or residential...) When possible be specific @ -No Did you speak to anyone other than the patient for history (EMS, parent, family, police, friend...)? What history was obtained from this source @ -No Did you review nursing and triage notes (agree or disagree)? Why? @ -I reviewed and agree with nursing and triage notes Were old charts reviewed (outside hosp., previous admission, EMS record, old EKG, old radiological studies, urgent care reports/EKG's, residential records)? Report findings @ -No old charts were reviewed Differential Diagnosis (chest pain, altered mental status, abdominal pain women, abdominal pain men, vaginal bleeding, weakness, fever, dyspnea, syncope, headache, dizziness, GI bleed, back pain, seizure, CVA, palpatations, mental health, musculoskeletal)? @ -nCOVID 19, RSV, influenza, pneumonia, acute bronchitis, URI, this list is not all inclusiveble EKG interpreted by me (3pts min.). @ -None X-rays interpreted by me (1pt min.). @ -Chest x-ray shows no lobar pneumonia CT interpreted by me (1pt min.). @ -None done U/S interpreted by me (1pt. min.). @ -None done What testing was considered but not performed or refused? (CT, X-rays, U/S, labs)? Why? @ -None What meds were considered but not given or refused? Why? @ -None Did you discuss the management of the patient with other professionals (professionals i.e. [employer], ASSOCIATE PROFESSOR OF GEOLOGY, lab, RT, psych nurse, social sciences research scientist, fortune cookie maker, teacher, field artillery officer, director of casework)? Give summary @ -No Was smoking cessation discussed for >3mins.? @ -No Was critical care preformed (if so, how long)? @ -No Were there social determinants of health that impacted care today? How? (Homelessness, low income, unemployed, alcoholism, drug addiction, transportation, low edu. Level, literacy, decrease access to med. care, half-way, rehab)? @ -No Was there de-escalation of care discussed even if they declined (Discuss DNR or withdrawal of care, Hospice)? DNR status @ -No What co-morbidities impacted this encounter? (DM, HTN, Smoking, COPD, CAD, Cancer, CVA, ARF, Chemo, Hep., AIDS, mental health diagnosis, sleep apnea, morbid obesity)? @ -None Was patient admitted / discharged? Hospital course, mention meds given and route, prescriptions, significant lab abnormalities, going to OR and other pertinent info. @ -Discharge patient has acute tracheobronchitis will be treated with doxycycline, prednisone patient will follow-up with PCP in 24 hours return parameters were discussed. Undiagnosed new problem with uncertain prognosis? @ -No Drug Therapy requiring intensive monitoring for toxicity (Heparin, Nitro, Insulin, Cardizem)? @ -No Were any procedures done? @ -No Diagnosis/symptom? @ -Tracheobronchitis Acute, or Chronic, or Acute on Chronic? @ -Acute Uncomplicated (without systemic symptoms) or Complicated (systemic symptoms)? @ -Uncomplicated Side effects of treatment? @ -No Exacerbation, Progression, or Severe Exacerbation? @ -No Poses a threat to life or bodily function? How? (Chest pain, [place], [place], pneumonia, PE, COPD, DKA, ARF, appy, cholecystitis, CVA, Diverticulitis, Homicidal, Suicidal, threat to staff... and all critical care pts) @ -No - Lab Data Lab Results 04/10/23 Range/Units 10:32 Influenza Type A (PCR) Not Detected (Not Detectd) Influenza Type B (PCR) Not Detected (Not Detectd) RSV (PCR) Not Detected (Not Detectd) SARS-CoV-2 (PCR) Not Detected (Not Detectd) Disposition Clinical Impression: Tracheobronchitis Disposition: HOME SELF-CARE Condition: Stable Instructions (If sedation given, give patient instructions): Upper Respiratory Infection (ED) Additional Instructions: Please return to the Emergency Department if symptoms worsen or any other concerns. Prescriptions: predniSONE [Deltasone] 20 mg PO DAILY #5 tab Doxycycline [Vibramycin] 100 mg PO BID #20 capsule Is patient prescribed a controlled substance at d/c from ED?: No Referrals: Antony Wolfe DO [Primary Care Provider] - 1-2 days Time of Disposition: 11:48
--- NOTE | 2023-04-10 11:29 | XR ---
EXAMINATION TYPE: XR chest 2V DATE OF EXAM: 04/10/2023 COMPARISON: 08/21/2021 HISTORY: 87-year-old female with cough TECHNIQUE: PA and lateral views FINDINGS: Heart upper limits of normal in size. Mildly tortuous thoracic aorta. Hyperinflation with interstitia l prominence is unchanged. No ethan consolidation or pleural effusion. IMPRESSION: COPD. No definite acute process.
[2023-04-10 12:15] VITALS: BP 145/86; PULSE 85; TEMP 98.8
== END 2023-04-10 12:21 | disposition home or self-care (01) ==
LOC: EC 10:06
DX: J40 Bronchitis, not specified as acute or chronic (principal); J44.9 Chronic obstructive pulmonary disease, unspecified; I25.2 Old myocardial infarction; Z20.822 Contact with and (suspected) exposure to COVID-19; Z88.0 Allergy status to penicillin; Z88.2 Allergy status to sulfonamides; Z91.030 Bee allergy status; Z88.5 Allergy status to narcotic agent; Z91.09 Other allergy status, other than to drugs and biological substances; Z79.51 Long term (current) use of inhaled steroids; Z79.82 Long term (current) use of aspirin; Z79.899 Other long term (current) drug therapy; Z87.891 Personal history of nicotine dependence
CPT/HCPCS: 71046; 87636; 99283

== ENCOUNTER → 2023-04-19 | Outpatient (CLI) | payer MEDICARE, BC ==
[2023-04-19 19:11] LABS: Basophils # (A) 0.02 X 10*3/uL (0.00-0.10); Basophils % (A) 0.3 %; Eosinophils # (A) 0.15 X 10*3/uL (0.04-0.35); Eosinophils % (A) 2.1 %; HCT 37.6 % (37.2-46.3); HGB 12.1 g/dL (12.0-15.0); Lymphocytes # (A) 1.96 X 10*3/uL (0.90-5.00); Lymphocytes % (A) 27.8 %; MCH 30.8 pg (27.0-32.0); MCHC 32.2 g/dL (32.0-37.0); MCV 95.7 FL (80.0-97.0); Mean Platelet Volume 9.2 FL (9.5-12.2); Monocytes # (A) 0.72 X 10*3/uL (0.20-1.00); Monocytes % (A) 10.2 %; NRBC Per 100 WBC 0 X 10*3/uL (0.00-0.01); Neutrophils # (A) 4.16 X 10*3/uL (1.80-7.70); Platelet Count 228 X 10*3/uL (140-440); RBC 3.93 X 10*6/uL (4.10-5.20); RDW 12.8 % (11.5-14.5); WBC 7.05 X 10*3/uL (4.50-10.00)
[2023-04-19 19:24] LABS: Erythrocyte Sedimentation Rate 14 mm/Hr (0-30)
[2023-04-20 02:49] LABS: BUN/Creat Ratio 27.91 Ratio (12.00-20.00); Blood Urea Nitrogen 30.7 mg/dL (9.0-27.0); Chloride 107 mmol/L (96-109); Glucose 98 mg/dL (70-110); Potassium 4.6 mmol/L (3.5-5.5); Sodium 142 mmol/L (135-145)
[2023-04-20 02:50] LABS: ALT 14 U/L (8-44); AST 13 U/L (13-35); Albumin 3.8 g/dL (3.8-4.9); Albumin/Globulin Ratio 1.81 Ratio (1.60-3.17); Alkaline Phosphatase 50 U/L (41-126); Carbon Dioxide 24.9 mmol/L (21.6-31.8); Globulin 2.1 g/dL (1.6-3.3); T4, Free (Free Thyroxine) 1.44 ng/dL (0.80-1.80); Total Bilirubin <0.2 mg/dL (0.3-1.2); Total Protein 5.9 g/dL (6.2-8.2)
== END | disposition home or self-care (01) ==
LOC: LABWHC1 15:10
PROVIDERS: ATTEND Internal Medicine
DX: R63.4 Abnormal weight loss (principal)
CPT/HCPCS: 36415; 80053; 84439; 84443; 85025; 85652; 86301

== ENCOUNTER → 2023-04-24 | Outpatient (CLI) | payer MEDICARE, BC ==
--- NOTE | 2023-04-25 09:57 | CT ---
EXAMINATION TYPE: CT ChestAbdPelvis w con DATE OF EXAM: 04/24/2023 COMPARISON: Chest CT September 06, 2014 HISTORY: Abnormal weight loss x [address] DLP: 617.6 mGycm. Automated Exposure Control for Dose Reduction was Utilized. CONTRAST: CT scan of the thorax, abdomen and pelvis is performed with oral and with IV Contrast, patient inject ed with 80 cc mL of Isovue 300. FINDINGS: LUNGS: Mosaic attenuation bilaterally on current study suggests mild edema. No focal consolidation. N o concerning masses There is no pleural effusion or pneumothorax seen. The tracheobronchial tree is patent. MEDIASTINUM: Prominent pulmonary arteries raises concern for underlying pulmonary artery hypertension . There are no greater than 1 cm hilar or mediastinal lymph nodes. Mild cardiomegaly. No pericardial effusion is seen. Coronary artery calcification is present. OTHER: Heterogeneously dense fibroglandular tissue in both breasts is seen. LIVER/GB: Small dependent gallstone in gallbladder axial image 75. No biliary dilatation. PANCREAS: Pancreatic duct is seen and slightly dilated in portions up to 5 mm in the body is 6 mm in the head. Some calcifications in the pancreatic head region are identified. Findings are presumed pro duct of chronic pancreatitis. SPLEEN: No significant abnormality is seen. ADRENALS: No significant abnormality is seen. KIDNEYS: Symmetric cortical medullary uptake and excretion without hydronephrosis seen bilaterally. BOWEL: Oral contrast reaches level of the proximal transverse colon. No abnormal small or large bowel dilatation GENITAL ORGANS: Uterus is surgically absent or markedly atrophic. LYMPH NODES: No greater than 1cm abdominal or pelvic lymph nodes are appreciated. OSSEOUS STRUCTURES: Scoliotic curvature. Moderate compression type fracture of L3 level with sclerosi s suggesting subacute or chronic in age. Slight posterior retropulsion along the superior margin sagi ttal image 66. Multilevel facet arthropathy in the lumbar spine. Moderate severe narrowing of both hi p joints. OTHER: No significant additional abnormality is seen. IMPRESSION: 1. No suspicious mass or adenopathy suggest neoplasm. 2. Moderate compression type fracture at L3 level consistent subacute or chronic in age. Correlate cl inically.
== END | disposition home or self-care (01) ==
LOC: RADCTMAIN 12:59
PROVIDERS: ATTEND Internal Medicine
DX: S32.030A Wedge compression fracture of third lumbar vertebra, initial encounter for closed fracture (principal); R63.4 Abnormal weight loss
CPT/HCPCS: 71260; 74177; Q9967

== ENCOUNTER 2023-08-30 15:24 | Emergency (ER) | payer MEDICARE, BC ==
--- NOTE | 2023-08-30 15:35 | ED ---
General Adult HPI - General Source: patient, RN notes reviewed Mode of arrival: ambulatory Limitations: no limitations <Bijan Manzanares - Last Filed: 08/30/23 15:34> - General Source: patient, RN notes reviewed Mode of arrival: ambulatory Limitations: no limitations <Suzette Delvalle - Last Filed: 08/30/23 18:03> - General Chief complaint: Extremity Injury, Lower Stated complaint: Fall Time Seen by Provider: 08/30/23 15:30 - History of Present Illness Initial comments: Quick [id number] female presents emergency department chief complaint of left knee, left wrist injury. She states she tripped on a curb at the local library. Patient had no head injury. (Bijan Manzanares) This is an 88-year-old female who presents to the emergency department for a fall. States that she tripped on a curb while at the library. She landed on her left side and injured her left knee and has some discomfort to the left wrist. She does have several abrasions to the left knee that were bandaged by a bystander who works as a photographic equipment inspector. Tetanus vaccine is not up-to-date and she requested this be updated. Denies any substantial pain associated with this or difficulty ambulating. Denies hitting her head, any loss of consciousness, dizziness, chest pain, or shortness of breath. (Suzette Delvalle) - Related Data Home Medications Medication Instructions Recorded Confirmed Budesonide-Formot 160-4.5 Mcg 2 puff INHALATION RT-BID 01/25/15 03/11/23 [Symbicort 160-4.5 Mcg Inhaler] Simvastatin [Zocor] 20 mg PO DAILY 01/25/15 03/11/23 Tiotropium 18 Mcg/Puff [Spiriva] 1 cap INHALATION RT-DAILY 11/01/15 03/11/23 Citalopram Hydrobromide [CeleXA] 10 mg PO DAILY 05/27/17 03/11/23 Montelukast [Singulair] 10 mg PO DAILY 01/06/19 03/11/23 Aspirin EC [Ecotrin Low Dose] 81 mg PO DAILY 12/08/19 03/11/23 Metoprolol Tartrate [Lopressor] 25 mg PO BID 12/08/19 03/11/23 Equate Dry Eye Relief 1 - 2 drop BOTH EYES QID PRN 05/02/21 03/11/23 Sodium Chloride [Saline Nasal 1 spray EA NOSTRIL DAILY PRN 05/02/21 03/11/23 [place]] Acetaminophen [Tylenol Arthritis] 650 mg PO QID 08/21/21 03/11/23 Previous Rx's Medication Instructions Recorded predniSONE 0 mg PO DIRECTED 8 Days #20 tab 08/23/21 Doxycycline [Vibramycin] 100 mg PO BID #20 capsule 04/10/23 predniSONE [Deltasone] 20 mg PO DAILY #5 tab 04/10/23 Allergies Allergy/AdvReac Type Severity Reaction Status Date / Time Penicillins Allergy Unknown Rash/Hives, Verified 08/30/23 15:31 Throat Swelling venom-honey bee Allergy Unknown Anaphylaxis Verified 08/30/23 15:31 [bee venom (honey bee)] iron Allergy Unknown Verified 08/30/23 15:31 codeine AdvReac Unknown Nausea & Verified 08/30/23 15:31 Vomiting Sulfa (Sulfonamide AdvReac Unknown Nausea Verified 08/30/23 15:31 Antibiotics) Review of Systems ROS Other: All systems not noted in ROS Statement are negative. <Bijan Manzanares - Last Filed: 08/30/23 15:34> ROS Other: All systems not noted in ROS Statement are negative. <Suzette Delvalle - Last Filed: 08/30/23 18:03> ROS Statement: Those systems with pertinent positive or pertinent negative responses have been documented in the HPI. Past Medical History Past Medical History: Cancer, COPD, Myocardial Infarction ([place]), Osteoarthritis (OA), Pneumonia Additional Past Medical History / Comment(s): HX OF SKIN CANCER, BRONCHITIS. OSTEOPOROSIS. Last Myocardial Infarction Date:: unknown if [place] History of Any Multi-Drug Resistant Organisms: None Reported Past Surgical History: Hysterectomy, Tonsillectomy Additional Past Surgical History / Comment(s): rotator cuff rt, lt ankle with quan, breast cyst removed, BREAST BIOPSY, EGD WITH DILATION. Past Anesthesia/Blood Transfusion Reactions: No Reported Reaction Additional Past Anesthesia/Blood Transfusion Reaction / Comment(s): PT DOES NOT KNOW FAMILY HX (FOSTER CHILD) Past Psychological History: No Psychological Hx Reported Smoking Status: Former smoker Past Alcohol Use History: None Reported Past Drug Use History: None Reported - Past Family History Mother Family Medical History: No Reported History Additional Family Medical History / Comment(s): STATES UNKNOWN FAMILY HX. <Bijan Manzanares - Last Filed: 08/30/23 15:34> General Exam Limitations: no limitations <Bijan Manzanares - Last Filed: 08/30/23 15:34> Limitations: no limitations General appearance: alert, in no apparent distress Head exam: Present: atraumatic, normocephalic, normal inspection Respiratory exam: Present: normal lung sounds bilaterally. Absent: respiratory distress, wheezes, rales, rhonchi, stridor Cardiovascular Exam: Present: regular rate, normal rhythm, normal heart sounds. Absent: systolic murmur, diastolic murmur, rubs, gallop, clicks Extremities exam: Present: other (2 skin tears to the left knee with minor active bleeding.) Neurological exam: Present: alert, oriented X3, CN II-XII intact Psychiatric exam: Present: normal affect, normal mood <Suzette Delvalle - Last Filed: 08/30/23 18:03> - General Exam Comments Initial Comments: Visual Physical Exam Vital signs reviewed General: Well-appearing, nontoxic, no acute distress. Head: Normocephalic, atraumatic Eyes: PERRLA, EOMI ENT: Airway patent Chest: Nonlabored breathing Skin: No visual rash, normal skin tone Neuro: Alert and oriented 3 Musculoskeletal: No gross abnormalities (Bijan Manzanares) Course Vital Signs 08/30/23 08/30/23 15:27 16:35 Temperature 98.1 F 98.4 F Pulse Rate 69 68 Respiratory 22 18 Rate Blood Pressure 134/76 122/76 O2 Sat by Pulse 97 97 Oximetry Medical Decision Making <Bijan Manzanares - Last Filed: 08/30/23 15:34> - Radiology Data Radiology results: report reviewed, image reviewed <Suzette Delvalle - Last Filed: 08/30/23 18:03> - Medical Decision Making I completed the quick note portion of this chart signed Bijan Manzanares PA-C (Bijan Manzanares) This is an 88-year-old female who presents to the emergency department for left knee pain after a fall. Was pt. sent in by a medical professional or institution? @ -No Did you speak to anyone other than the patient for history? @ -No Did you review nursing and triage notes? @ -Yes, and I agree, it is accurate with regards to the patient's symptoms. Were old charts reviewed? @ -No Differential Diagnosis? @ -Differential Musculoskeletal: Muscular strain, contusion, ligament sprain, fracture, arthritis, septic arthritis, bursitis, cellulitis, muscle spasm, nerve compression, DVT, arterial occlusion, herpes zoster, electrolyte abnormality, tumor.... This is not meant to be in all inclusive list EKG interpreted by me (3pts min.)? @ -Not obtained X-rays interpreted by me (1pt min.)? @ -X-ray of the left knee and left wrist obtained. My interpretation identifies no acute fractures. CT interpreted by me (1pt min.)? @ -Not obtained U/S interpreted by me (1pt. min.)? @ -Not obtained What testing was considered but not performed? (CT, X-rays, U/S, labs)? Why? @ -None What meds were considered but not given? Why? @ -None Did you discuss the management of the patient with other professionals? @ -No Did you reconcile home meds? @ -No Was smoking cessation discussed for >3mins.? @ -No Was critical care preformed (if so, how long)? @ -No Were there social determinants of health that impacted care today? How? (Homelessness, low income, unemployed, alcoholism, drug addiction, transportation, low edu. Level, literacy, decrease access to med. care, halfway, rehab)? @ -No Was there de-escalation of care discussed even if they declined? (Discuss DNR or withdrawal of care, Hospice)? @ -No What co-morbidities impacted this encounter? (DM, HTN, Smoking, COPD, CAD, Cancer, CVA, Hep., AIDS, mental health diagnosis, sleep apnea, morbid obesity)? @ -Osteoarthritis Was patient admitted / discharged? @ -Discharged. X-ray of the left knee and left wrist obtained revealing no acute process. Tetanus vaccine was updated. Her left knee was bandaged. Patient declined the need for any pain medication. Advised Tylenol as needed for pain relief. Undiagnosed new problem with uncertain prognosis? @ -None Drug Therapy requiring intensive monitoring for toxicity (Heparin, Nitro, Insulin, Cardizem)? @ -None Were any procedures done? @ -None Diagnosis/symptom? @ -Fall, left knee contusion, skin tear Acute, or Chronic, or Acute on Chronic? @ -Acute Uncomplicated (without systemic symptoms) or Complicated (systemic symptoms)? @ -Uncomplicated Side effects of treatment? @ -None Exacerbation, Progression, or Severe Exacerbation] @ -Not applicable Poses a threat to life or bodily function? @ -No Return precautions reviewed in depth, the patient is instructed to return to the emergency department with any new, worsening, or concerning symptoms. Patient verbalized understanding. This case was discussed in detail with the attending ED physician, Dr. Quesada. Presentation, findings, and treatment plan discussed in detail as well. (Suzette Delvalle) Disposition <Bijan Manzanares - Last Filed: 08/30/23 15:34> Is patient prescribed a controlled substance at d/c from ED?: No Time of Disposition: 16:25 <Suzette Delvalle - Last Filed: 08/30/23 18:03> Clinical Impression: Fall, Knee contusion, Skin tear Disposition: HOME SELF-CARE Instructions (If sedation given, give patient instructions): Skin Tear (ED) Additional Instructions: Return to the emergency department with any new, worsening, or concerning symptoms. Take Tylenol as needed for pain relief. You can keep antibiotic ointment on the wounds if you would like. Follow up with your primary care provider in 1-2 days. Referrals: Antony Wolfe DO [Primary Care Provider] - 1-2 days
--- NOTE | 2023-08-30 16:06 | XR ---
EXAMINATION TYPE: XR knee complete LT DATE OF EXAM: 08/30/2023 CLINICAL HISTORY: pain TECHNIQUE: Three views of the left knee are obtained. COMPARISON: None. FINDINGS: There is no acute fracture/dislocation. The tri-compartment joint spaces appear within no rmal limits. The overlying soft tissue appears unremarkable. IMPRESSION: There is no acute fracture or dislocation ICD 10 NO FRACTURE, INITIAL EVALUATION
--- NOTE | 2023-08-30 16:07 | XR ---
EXAMINATION TYPE: XR wrist complete LT DATE OF EXAM: 08/30/2023 CLINICAL HISTORY: pain TECHNIQUE: Frontal, lateral and oblique images of the left wrist are obtained. COMPARISON: None. FINDINGS: There is no acute fracture/dislocation evident. Severe degenerative narrowing first carpom etacarpal joint space with bony fragmentation. The overlying soft tissue appears unremarkable. IMPRESSION: There is no acute fracture or dislocation seen. ICD 10 NO FRACTURE, INITIAL EVALUATION
[2023-08-30] MEDS: DIPH,PERTUS(ACELL)TETVAC-LF 0.5 ML VIAL IM ONE (16:31)
[2023-08-30 16:59] VITALS: BP 122/76; PULSE 68; RESP 18; TEMP 98.4
== END 2023-08-30 16:37 | disposition home or self-care (01) ==
LOC: EC 15:24
DX: S81.012A Laceration without foreign body, left knee, initial encounter (principal); Z87.891 Personal history of nicotine dependence; Z88.0 Allergy status to penicillin; Z88.5 Allergy status to narcotic agent; Z88.2 Allergy status to sulfonamides; Z91.030 Bee allergy status; Z23 Encounter for immunization; W01.0XXA Fall on same level from slipping, tripping and stumbling without subsequent striking against object, initial encounter
CPT/HCPCS: 90471; 90715; 99283

== ENCOUNTER → 2024-01-30 | Outpatient (CLI) | payer MEDICARE, BC ==
[2024-01-30 14:01] VITALS: BP 133/76; PULSE 61; RESP 16; TEMP 97.5
[2024-01-30] MEDS: DENOSUMAB 60 MG/ML 1 ML SYRINGE SQ NR (14:01)
== END ==
LOC: PROCWHC3 13:43
PROVIDERS: ATTEND Family Medicine
DX: M81.0 Age-related osteoporosis without current pathological fracture (principal)
CPT/HCPCS: 96372

== ENCOUNTER 2024-07-30 14:00 | Outpatient (CLI) | payer MEDICARE, BC ==
[2024-07-30 14:18] VITALS: BP 124/83; PULSE 83; RESP 15; TEMP 97.7
[2024-07-30] MEDS: DENOSUMAB 60 MG/ML 1 ML SYRINGE SQ NR (14:18)
== END 2024-07-31 10:16 | disposition home or self-care (01) ==
LOC: PROCWHC3 14:00
PROVIDERS: ATTEND Family Medicine
DX: M81.0 Age-related osteoporosis without current pathological fracture (principal)
CPT/HCPCS: 96372; J0897

== ENCOUNTER 2024-08-16 11:23 | Emergency (ER) | payer MEDICARE, BC ==
[2024-08-16 11:29] VITALS: RESP 18
--- NOTE | 2024-08-16 11:33 | ED ---
Chest Pain HPI - General Chief Complaint: Chest Pain Stated Complaint: chest pain Time Seen by Provider: 08/16/24 11:26 Source: patient, EMS Mode of arrival: EMS Limitations: no limitations - History of Present Illness Initial Comments: 89-year-old female with past medical history of [place], COPD who presents to the emergency department with chest pain. States that last night she started having some pain in her chest which subsided. Started again this morning. [facility] who told her she had to come to the hospital for evaluation. Patient did receive aspirin en route to the hospital. She states that her pain is not active at this time. Denies associated shortness of breath. No fevers chills or cough. No ripping or tearing sensation to her back. No numbness, tingling or weakness in her extremities. No other alleviating, precipitating roughing factors - Related Data Home Medications Medication Instructions Recorded Confirmed Budesonide-Formot 160-4.5 Mcg 2 puff INHALATION RT-BID 01/25/15 07/30/24 [Symbicort 160-4.5 Mcg Inhaler] Simvastatin [Zocor] 20 mg PO DAILY 01/25/15 07/30/24 Tiotropium 18 Mcg/Puff [Spiriva] 1 puff INHALATION RT-DAILY 11/01/15 07/30/24 Citalopram Hydrobromide [CeleXA] 10 mg PO HS 05/27/17 07/30/24 Montelukast [Singulair] 10 mg PO HS 01/06/19 07/30/24 Aspirin EC [Ecotrin Low Dose] 81 mg PO DAILY 12/08/19 07/30/24 Metoprolol Tartrate [Lopressor] 25 mg PO BID 12/08/19 07/30/24 EPINEPHrine (Auto Inject) [Epipen] 0.3 mg IM ONCE PRN 10/07/23 07/30/24 Allergies Allergy/AdvReac Type Severity Reaction Status Date / Time Penicillins Allergy Unknown Rash/Hives, Verified 08/16/24 11:29 Throat Swelling venom-honey bee Allergy Unknown Anaphylaxis Verified 08/16/24 11:29 [bee venom (honey bee)] iron Allergy Unknown Verified 08/16/24 11:29 codeine AdvReac Unknown Nausea & Verified 08/16/24 11:29 Vomiting Sulfa (Sulfonamide AdvReac Unknown Nausea Verified 08/16/24 11:29 Antibiotics) Review of Systems ROS Statement: Those systems with pertinent positive or pertinent negative responses have been documented in the HPI. ROS Other: All systems not noted in ROS Statement are negative. Past Medical History Past Medical History: Cancer, COPD, Myocardial Infarction ([place]), Osteoarthritis (OA), Pneumonia Additional Past Medical History / Comment(s): HX OF SKIN CANCER, BRONCHITIS. OSTEOPOROSIS. Last Myocardial Infarction Date:: unknown if [place] History of Any Multi-Drug Resistant Organisms: None Reported Past Surgical History: Hysterectomy, Tonsillectomy Additional Past Surgical History / Comment(s): rotator cuff rt, lt ankle with quan, breast cyst removed, BREAST BIOPSY, EGD WITH DILATION. Past Anesthesia/Blood Transfusion Reactions: No Reported Reaction Additional Past Anesthesia/Blood Transfusion Reaction / Comment(s): PT DOES NOT KNOW FAMILY HX (FOSTER CHILD) Past Psychological History: No Psychological Hx Reported Smoking Status: Former smoker - Past Family History Mother Family Medical History: No Reported History Additional Family Medical History / Comment(s): STATES UNKNOWN FAMILY HX. General Exam Limitations: no limitations General appearance: alert, in no apparent distress Head exam: Present: atraumatic, normocephalic, normal inspection Eye exam: Present: normal appearance, PERRL, EOMI. Absent: scleral icterus, conjunctival injection, periorbital swelling ENT exam: Present: normal exam, mucous membranes moist Neck exam: Present: normal inspection. Absent: tenderness, meningismus, lymphadenopathy Respiratory exam: Present: normal lung sounds bilaterally. Absent: respiratory distress, wheezes, rales, rhonchi, stridor Cardiovascular Exam: Present: regular rate, normal rhythm, normal heart sounds. Absent: systolic murmur, diastolic murmur, rubs, gallop, clicks GI/Abdominal exam: Present: soft, normal bowel sounds. Absent: distended, tenderness, guarding, rebound, rigid Extremities exam: Present: normal inspection, full ROM, normal capillary refill. Absent: tenderness, pedal edema, joint swelling, calf tenderness Back exam: Present: normal inspection Neurological exam: Present: alert, oriented X3, CN II-XII intact Psychiatric exam: Present: normal affect, normal mood Skin exam: Present: warm, dry, intact, normal color. Absent: rash Course Vital Signs 08/16/24 08/16/24 08/16/24 11:25 12:57 14:17 Temperature 98.4 F Pulse Rate 57 L 56 L 89 Respiratory 18 18 18 Rate Blood Pressure 148/71 125/70 137/75 O2 Sat by Pulse 97 97 98 Oximetry 08/16/24 15:49 Temperature 97.8 F Pulse Rate 62 Respiratory 18 Rate Blood Pressure 134/61 O2 Sat by Pulse 98 Oximetry Chest Pain MDM - MDM Was pt. sent in by a medical professional or institution (, PA, SERVICES MANAGER, urgent care, hospital, or long-term...) When possible be specific @ -Urgent care Did you speak to anyone other than the patient for history (EMS, parent, family, police, friend...)? What history was obtained from this source @ -Spoke with EMS for history Did you review nursing and triage notes (agree or disagree)? Why? @ -I reviewed and agree with nursing and triage notes Were old charts reviewed (outside hosp., previous admission, EMS record, old EKG, old radiological studies, urgent care reports/EKG's, long-term records)? Report findings @ -No old charts were reviewed Differential Diagnosis (chest pain, altered mental status, abdominal pain women, abdominal pain men, vaginal bleeding, weakness, fever, dyspnea, syncope, headache, dizziness, GI bleed, back pain, seizure, CVA, palpatations, mental health, musculoskeletal)? @ -Differential Chest Pain: Stable Angina, Unstable Angina, STEMI, NSTEMI Aortic Dissection, Pneumothorax, Musculoskeletal, Esophageal Spasm GERD, Cholecystitis, Pancreatitis, Zoster, this is not meant to be an all-inclusive list. EKG interpreted by me (3pts min.). @ -Yes and demonstrates sinus bradycardia with a rate of 56. Parable 158. QRS 84. QTc of 443. No acute ST segment elevations or depressions X-rays interpreted by me (1pt min.). @ -Yes and demonstrates no acute process CT interpreted by me (1pt min.). @ -None done U/S interpreted by me (1pt. min.). @ -None done What testing was considered but not performed or refused? (CT, X-rays, U/S, labs)? Why? @ -Serial troponins and echo however patient refused What meds were considered but not given or refused? Why? @ -None Did you discuss the management of the patient with other professionals (professionals i.e. , PA, SERVICES MANAGER, lab, RT, psych nurse, social work job titles, tile mechanic helper, teacher, employment officer, case management manager)? Give summary @ -No Was smoking cessation discussed for >3mins.? @ -No Was critical care preformed (if so, how long)? @ -No Were there social determinants of health that impacted care today? How? (Homelessness, low income, unemployed, alcoholism, drug addiction, transportation, low edu. Level, literacy, decrease access to med. care, senior care, rehab)? @ -No Was there de-escalation of care discussed even if they declined (Discuss DNR or withdrawal of care, Hospice)? DNR status @ -No What co-morbidities impacted this encounter? (DM, HTN, Smoking, COPD, CAD, Cancer, CVA, ARF, Chemo, Hep., AIDS, mental health diagnosis, sleep apnea, morbid obesity)? @ -COPD Was patient admitted / discharged? Hospital course, mention meds given and route, prescriptions, significant lab abnormalities, going to OR and other pertinent info. @ -Upon arrival patient seen and evaluated in room 3. Thorough history and physical exam was performed. IV was established. Laboratory studies are conducted. Chest x-ray was performed. Results are discussed with patient. I did recommend admission for cardiology consultation. Patient will have serial troponin. Patient is adamant that she does not want to stay. Patient is adamant that she will go home and is aware of the risks of leaving. Patient does feel as if her COPD is acting up and therefore she was given a dose of steroids. She needs to follow-up with her primary care doctor in 2 to 4 days. Return for any new or worsening symptoms. Patient agreeable to plan was discharged in stable condition. Undiagnosed new problem with uncertain prognosis? @ -No Drug Therapy requiring intensive monitoring for toxicity (Heparin, Nitro, Insulin, Cardizem)? @ -No Were any procedures done? @ -No Diagnosis/symptom? @ -Acute chest pain Acute, or Chronic, or Acute on Chronic? @ -Acute Uncomplicated (without systemic symptoms) or Complicated (systemic symptoms)? @ -Complicated Side effects of treatment? @ -No Exacerbation, Progression, or Severe Exacerbation? @ -No Poses a threat to life or bodily function? How? (Chest pain, [place], [place], pneumonia, PE, COPD, DKA, ARF, appy, cholecystitis, CVA, Diverticulitis, Homicidal, Suicidal, threat to staff... and all critical care pts) @ -No Disposition Clinical Impression: Chest pain Disposition: HOME SELF-CARE Condition: Stable Instructions (If sedation given, give patient instructions): Chest Pain (ED) Additional Instructions: Please follow-up with your primary care doctor within 2 to 4 days. If you have any return of your pain, please return to the emergency department Is patient prescribed a controlled substance at d/c from ED?: No Referrals: Antony Wolfe DO [Primary Care Provider] - 1-2 days Time of Disposition: 14:36
[2024-08-16 12:05] LABS: Basophils % (A) 0 %; Eosinophils # (A) 0.1 k/uL (0-0.7); Eosinophils % (A) 2 %; HCT 36.7 % (34.0-46.0); HGB 12.3 gm/dL (11.4-16.0); Lymphocytes # (A) 1.6 k/uL (1.0-4.8); Lymphocytes % (A) 21 %; MCH 30.4 pg (25.0-35.0); MCHC 33.5 g/dL (31.0-37.0); Mean Platelet Volume 7.5; Monocytes # (A) 0.5 k/uL (0-1.0); Monocytes % (A) 7 %; Neutrophils # (A) 4.9 k/uL (1.3-7.7); Neutrophils % (A) 68 %; Platelet Count 169 k/uL (150-450); RBC 4.03 m/uL (3.80-5.40); RDW 13.6 % (11.5-15.5); WBC 7.3 k/uL (3.8-10.6)
[2024-08-16 12:19] LABS: ALT 12 U/L (4-34); AST 19 U/L (14-36); African American GFR (CKD) 54 (>60 ml/min/1.73 sqM); Albumin 3.8 g/dL (3.5-5.0); Alkaline Phosphatase 44 U/L (38-126); Anion Gap 6 mmol/L; Blood Urea Nitrogen 32 mg/dL (7-17); Calcium 8.8 mg/dL (8.4-10.2); Carbon Dioxide 25 mmol/L (22-30); Chloride 104 mmol/L (98-107); Glucose 73 mg/dL (74-99); Lipase 444 U/L (23-300); Magnesium 2.3 mg/dL (1.6-2.3); Non-African American GFR(CKD) 46 (>60 ml/min/1.73 sqM); Potassium 5.2 mmol/L (3.5-5.1); Sodium 135 mmol/L (137-145); Total Bilirubin 0.4 mg/dL (0.2-1.3); Total Protein 6.4 g/dL (6.3-8.2)
[2024-08-16 12:25] LABS: NT-Pro-B-Type Natriuretic Pept 533 pg/mL
[2024-08-16 12:29] LABS: Prothrombin Time 10.7 sec (10.0-12.5)
--- NOTE | 2024-08-16 12:51 | XR ---
Chest, 2 view. CLINICAL INDICATION: Female, 89 years old with history of Chest Pain COMPARISON: 04/10/2023 TECHNIQUE: PA and lateral views the chest are obtained. FINDINGS: The lungs are clear and there is no consolidative or interstitial opacity. There is hyperinflation jarocho ngs and mild flattening the diaphragms consistent with COPD There is no pleural effusion or pneumothorax. The heart, pulmonary vasculature, mediastinum and lonnie appear normal. The osseous structures are intact. IMPRESSION: 1. No acute cardiopulmonary process. 2. COPD. 3. No interval change. [facility], , 08/16/2024 12:49 PM
[2024-08-16 13:38] LABS: Influenza A Not Detected (Not Detectd); Influenza B Not Detected (Not Detectd); RSV Not Detected (Not Detectd)
[2024-08-16] MEDS: DEXAMETHASONE SOD PHOSPHATE 10 MG/ML 1 ML VIAL IVP STA (15:12)
[2024-08-16 15:52] VITALS: BP 134/61; PULSE 62; TEMP 97.8
== END 2024-08-16 15:53 | disposition home or self-care (01) ==
LOC: EC 11:23
DX: R07.89 Other chest pain (principal); J44.9 Chronic obstructive pulmonary disease, unspecified; R00.1 Bradycardia, unspecified; Z88.0 Allergy status to penicillin; Z88.2 Allergy status to sulfonamides; Z88.5 Allergy status to narcotic agent; Z91.030 Bee allergy status; Z87.891 Personal history of nicotine dependence
CPT/HCPCS: 36415; 93005; 83880; 80053; 83690; 83735; 84484; 85025; 85610; 85730; 87636; 71046; 99285; 96374; J1100

== ENCOUNTER 2024-09-14 15:09 | Emergency (ER) | payer MEDICARE, BC ==
[2024-09-14 15:57] VITALS: RESP 18; TEMP 101.5
--- NOTE | 2024-09-14 16:10 | ED ---
General Adult HPI - General Chief complaint: Nausea/Vomiting/Diarrhea Stated complaint: Cough/Body Aches Time Seen by Provider: 09/14/24 15:21 Source: patient, RN notes reviewed Mode of arrival: ambulatory Limitations: no limitations - History of Present Illness Initial comments: This is an 89-year-old female, with a history of COPD, presenting to emergency department with complaints of generalized bodyaches, cough, sneezing, dry heaving, and fever and chills since she woke up this morning. She denies abdominal pain, difficulty breathing, chest pain, heart palpitations, dizziness or lightheadedness. States that her cough has been dry and nonproductive. Patient is attempted to use a breathing treatment at home, states that this does not normally help her symptoms. Last took Tylenol this morning. She is scheduled for a follow-up appointment tomorrow with her primary care provider. - Related Data Home Medications Medication Instructions Recorded Confirmed Budesonide-Formot 160-4.5 Mcg 2 puff INHALATION RT-BID 01/25/15 07/30/24 [Symbicort 160-4.5 Mcg Inhaler] Simvastatin [Zocor] 20 mg PO DAILY 01/25/15 07/30/24 Tiotropium 18 Mcg/Puff [Spiriva] 1 puff INHALATION RT-DAILY 11/01/15 07/30/24 Citalopram Hydrobromide [CeleXA] 10 mg PO HS 05/27/17 07/30/24 Montelukast [Singulair] 10 mg PO HS 01/06/19 07/30/24 Aspirin EC [Ecotrin Low Dose] 81 mg PO DAILY 12/08/19 07/30/24 Metoprolol Tartrate [Lopressor] 25 mg PO BID 12/08/19 07/30/24 EPINEPHrine (Auto Inject) [Epipen] 0.3 mg IM ONCE PRN 10/07/23 07/30/24 Allergies Allergy/AdvReac Type Severity Reaction Status Date / Time Penicillins Allergy Unknown Rash/Hives, Verified 09/14/24 15:57 Throat Swelling venom-honey bee Allergy Unknown Anaphylaxis Verified 09/14/24 15:57 [bee venom (honey bee)] iron Allergy Unknown Verified 09/14/24 15:57 codeine AdvReac Unknown Nausea & Verified 09/14/24 15:57 Vomiting Sulfa (Sulfonamide AdvReac Unknown Nausea Verified 09/14/24 15:57 Antibiotics) Review of Systems ROS Statement: Those systems with pertinent positive or pertinent negative responses have been documented in the HPI. ROS Other: All systems not noted in ROS Statement are negative. Past Medical History Past Medical History: Cancer, COPD, Myocardial Infarction ([place]), Osteoarthritis (OA), Pneumonia Additional Past Medical History / Comment(s): HX OF SKIN CANCER, BRONCHITIS. OSTEOPOROSIS. Last Myocardial Infarction Date:: unknown if [place] History of Any Multi-Drug Resistant Organisms: None Reported Past Surgical History: Hysterectomy, Tonsillectomy Additional Past Surgical History / Comment(s): rotator cuff rt, lt ankle with quan, breast cyst removed, BREAST BIOPSY, EGD WITH DILATION. Past Anesthesia/Blood Transfusion Reactions: No Reported Reaction Additional Past Anesthesia/Blood Transfusion Reaction / Comment(s): PT DOES NOT KNOW FAMILY HX (FOSTER CHILD) Past Psychological History: No Psychological Hx Reported Smoking Status: Former smoker - Past Family History Mother Family Medical History: No Reported History Additional Family Medical History / Comment(s): STATES UNKNOWN FAMILY HX. General Exam - General Exam Comments Initial Comments: Visual Physical Exam Vital signs reviewed General: Well-appearing, nontoxic, no acute distress. Head: Normocephalic, atraumatic Eyes: PERRLA, EOMI ENT: Airway patent Chest: Nonlabored breathing Skin: No visual rash, normal skin tone Neuro: Alert and oriented 3 Musculoskeletal: No gross abnormalities Limitations: no limitations General appearance: alert, in no apparent distress Neck exam: Present: normal inspection. Absent: tenderness, meningismus, lymphadenopathy Respiratory exam: Present: normal lung sounds bilaterally. Absent: respiratory distress, wheezes, rales, rhonchi, stridor Cardiovascular Exam: Present: regular rate, normal rhythm, normal heart sounds. Absent: systolic murmur, diastolic murmur, rubs, gallop, clicks GI/Abdominal exam: Present: soft, normal bowel sounds. Absent: distended, tenderness, guarding, rebound, rigid Extremities exam: Present: normal inspection, full ROM, normal capillary refill. Absent: tenderness, pedal edema, joint swelling, calf tenderness Back exam: Present: normal inspection Skin exam: Present: warm, dry, intact, normal color. Absent: rash Course Vital Signs 09/14/24 09/14/24 09/14/24 15:53 17:23 17:26 Temperature 101.5 F H Pulse Rate 84 89 86 Respiratory 18 18 18 Rate Blood Pressure 149/81 145/94 145/94 O2 Sat by Pulse 94 L 96 96 Oximetry Medical Decision Making - Medical Decision Making Was pt. sent in by a medical professional or institution (, [facility], VACUUM FRAME OPERATOR, urgent care, hospital, or retirement...) When possible be specific @ -No Did you speak to anyone other than the patient for history (EMS, parent, family, police, friend...)? What history was obtained from this source @ -No Did you review nursing and triage notes (agree or disagree)? Why? @ -I reviewed and agree with nursing and triage notes Were old charts reviewed (outside hosp., previous admission, EMS record, old EKG, old radiological studies, urgent care reports/EKG's, retirement records)? Report findings @ -No old charts were reviewed Differential Diagnosis (chest pain, altered mental status, abdominal pain women, abdominal pain men, vaginal bleeding, weakness, fever, dyspnea, syncope, headache, dizziness, GI bleed, back pain, seizure, CVA, palpatations, mental health, musculoskeletal)? @ -COVID 19, RSV, influenza, pneumonia, acute bronchitis, URI, this list is not all inclusive EKG interpreted by me (3pts min.). @ -None X-rays interpreted by me (1pt min.). @ -Chest x-ray completed COPD changes and mild cardiomegaly. CT interpreted by me (1pt min.). @ -None done U/S interpreted by me (1pt. min.). @ -None done What testing was considered but not performed or refused? (CT, X-rays, U/S, la bs)? Why? @ -None What meds were considered but not given or refused? Why? @ -None Did you discuss the management of the patient with other professionals (professionals i.e. , [employer], VACUUM FRAME OPERATOR, lab, RT, psych nurse, social services designee, hand shaper, teacher, marketing and communications officer, correctional casework specialist)? Give summary @ -No Was smoking cessation discussed for >3mins.? @ -No Was critical care preformed (if so, how long)? @ -No Were there social determinants of health that impacted care today? How? (Homelessness, low income, unemployed, alcoholism, drug addiction, transportation, low edu. Level, literacy, decrease access to med. care, senior living, rehab)? @ -No Was there de-escalation of care discussed even if they declined (Discuss DNR or withdrawal of care, Hospice)? DNR status @ -No What co-morbidities impacted this encounter? (DM, HTN, Smoking, COPD, CAD, Cancer, CVA, ARF, Chemo, Hep., AIDS, mental health diagnosis, sleep apnea, morbid obesity)? @ -None Was patient admitted / discharged? Hospital course, mention meds given and route, prescriptions, significant lab abnormalities, going to OR and other pertinent info. @ -Discharge. 89-year-old female presented emergency department URI symptoms. Patient is febrile on arrival with a temperature of 101.5 and she is provided with dose of Motrin. Physical examination completed with no acute findings. Patient tested positive for RSV. Chest x-ray no signs of focal consolidation or pneumonia. Recommend patient continue supportive treatment at home and follow- up as scheduled tomorrow with primary care provider. Return parameters discussed. Case discussed with Dr. Quesada Undiagnosed new problem with uncertain prognosis? @ -No Drug Therapy requiring intensive monitoring for toxicity (Heparin, Nitro, Insulin, Cardizem)? @ -No Were any procedures done? @ -No Diagnosis/symptom? @ -RSV Acute, or Chronic, or Acute on Chronic? @ -Acute Uncomplicated (without systemic symptoms) or Complicated (systemic symptoms)? @ -Uncomplicated Side effects of treatment? @ -No Exacerbation, Progression, or Severe Exacerbation? @ -No Poses a threat to life or bodily function? How? (Chest pain, [place], [place], pneumonia, PE, COPD, DKA, ARF, appy, cholecystitis, CVA, Diverticulitis, Homicidal, Suicidal, threat to staff... and all critical care pts) @ -No - Lab Data Lab Results 09/14/24 Range/Units 15:59 Influenza Type A (PCR) Not Detected (Not Detectd) Influenza Type B (PCR) Not Detected (Not Detectd) RSV (PCR) Detected A (Not Detectd) SARS-CoV-2 (PCR) Not Detected (Not Detectd) Disposition Clinical Impression: RSV (respiratory syncytial virus infection) Disposition: HOME SELF-CARE Condition: Good Instructions (If sedation given, give patient instructions): Respiratory Syncytial Virus (ED) Additional Instructions: Please return to the Emergency Department if symptoms worsen or any other concerns. Is patient prescribed a controlled substance at d/c from ED?: No Referrals: Antony Wolfe DO [Primary Care Provider] - 1-2 days Time of Disposition: 17:38
--- NOTE | 2024-09-14 16:36 | XR ---
EXAMINATION TYPE: XR chest 2V DATE OF EXAM: 09/14/2024 4:26 PM COMPARISON: 08/16/2024 CLINICAL INDICATION: Female, 89 years old with history of cough, wheeze, , TECHNIQUE: PA and lateral views FINDINGS: Heart mildly enlarged. Slight rightward patient rotation alters normal cardiac mediastinal contours. Hazy bilateral lower lung densities likely related to overlying soft tissue. Some mild patchy density is present at the left base. Hyperinflation. Otherwise, no consolidation or pleural effusion seen. IMPRESSION: COPD. Mild cardiomegaly. Either some patchy atelectasis versus early developing infiltrate at the lef t base. [facility], , 09/14/2024 4:34 PM
[2024-09-14 16:44] LABS: Influenza A Not Detected (Not Detectd); Influenza B Not Detected (Not Detectd); RSV Detected (Not Detectd)
[2024-09-14] MEDS: IBUPROFEN 800 MG TAB PO STA (17:10)
[2024-09-14 17:24] VITALS: BP 145/94
[2024-09-14 17:27] VITALS: PULSE 86
[2024-09-14] MEDS: methylPREDNISolone SOD SUCCI 125 MG/2 ML VIAL IM ONE (17:49)
== END 2024-09-14 18:09 | disposition home or self-care (01) ==
LOC: EC 15:09
DX: J44.9 Chronic obstructive pulmonary disease, unspecified (principal); B97.4 Respiratory syncytial virus as the cause of diseases classified elsewhere; I51.7 Cardiomegaly; Z88.0 Allergy status to penicillin; Z88.2 Allergy status to sulfonamides; Z88.5 Allergy status to narcotic agent; Z91.030 Bee allergy status; Z88.8 Allergy status to other drugs, medicaments and biological substances; Z87.891 Personal history of nicotine dependence
CPT/HCPCS: 87636; 71046; 99284; 96372; J2919

== ENCOUNTER 2024-11-26 18:30 | Emergency (ER) | payer MEDICARE, BC ==
[2024-11-26 18:56] VITALS: RESP 20
--- NOTE | 2024-11-26 19:49 | ED ---
General Adult HPI - General Chief complaint: Wound/Laceration Stated complaint: cat scratch r hand Time Seen by Provider: 11/26/24 19:25 Source: patient, RN notes reviewed, old records reviewed Mode of arrival: ambulatory Limitations: no limitations - History of Present Illness Initial comments: 89-year-old female with scratch from her cat which occurred this morning. Patient had noted erythema and swelling on the dorsal surface of her right hand adjacent to the scratch. Patient denies anticoagulation. She denies measured fever. - Related Data Home Medications Medication Instructions Recorded Confirmed Budesonide-Formot 160-4.5 Mcg 2 puff INHALATION RT-BID 01/25/15 07/30/24 [Symbicort 160-4.5 Mcg Inhaler] Simvastatin [Zocor] 20 mg PO DAILY 01/25/15 07/30/24 Tiotropium 18 Mcg/Puff [Spiriva] 1 puff INHALATION RT-DAILY 11/01/15 07/30/24 Citalopram Hydrobromide [CeleXA] 10 mg PO HS 05/27/17 07/30/24 Montelukast [Singulair] 10 mg PO HS 01/06/19 07/30/24 Aspirin EC [Ecotrin Low Dose] 81 mg PO DAILY 12/08/19 07/30/24 Metoprolol Tartrate [Lopressor] 25 mg PO BID 12/08/19 07/30/24 EPINEPHrine (Auto Inject) [Epipen] 0.3 mg IM ONCE PRN 10/07/23 07/30/24 Previous Rx's Medication Instructions Recorded Doxycycline [Vibramycin] 100 mg PO BID 14 Days #28 capsule 11/26/24 Allergies Allergy/AdvReac Type Severity Reaction Status Date / Time Penicillins Allergy Unknown Rash/Hives, Verified 11/26/24 18:56 Throat Swelling venom-honey bee Allergy Unknown Anaphylaxis Verified 11/26/24 18:56 [bee venom (honey bee)] iron Allergy Unknown Verified 11/26/24 18:56 codeine AdvReac Unknown Nausea & Verified 11/26/24 18:56 Vomiting Sulfa (Sulfonamide AdvReac Unknown Nausea Verified 11/26/24 18:56 Antibiotics) Review of Systems ROS Statement: Those systems with pertinent positive or pertinent negative responses have been documented in the HPI. ROS Other: All systems not noted in ROS Statement are negative. Past Medical History Past Medical History: Cancer, COPD, Myocardial Infarction (CT), Osteoarthritis (OA), Pneumonia Additional Past Medical History / Comment(s): HX OF SKIN CANCER, BRONCHITIS. OSTEOPOROSIS. Last Myocardial Infarction Date:: unknown if CT History of Any Multi-Drug Resistant Organisms: None Reported Past Surgical History: Hysterectomy, Tonsillectomy Additional Past Surgical History / Comment(s): rotator cuff rt, lt ankle with quan, breast cyst removed, BREAST BIOPSY, EGD WITH DILATION. Past Anesthesia/Blood Transfusion Reactions: No Reported Reaction Additional Past Anesthesia/Blood Transfusion Reaction / Comment(s): PT DOES NOT KNOW FAMILY HX (FOSTER CHILD) Past Psychological History: No Psychological Hx Reported Smoking Status: Former smoker Past Alcohol Use History: None Reported Past Drug Use History: None Reported - Past Family History Mother Family Medical History: No Reported History Additional Family Medical History / Comment(s): STATES UNKNOWN FAMILY HX. General Exam Limitations: no limitations General appearance: alert, in no apparent distress Head exam: Present: atraumatic, normocephalic Eye exam: Present: normal appearance, PERRL Neck exam: Present: normal inspection. Absent: tenderness, meningismus Respiratory exam: Present: normal lung sounds bilaterally. Absent: respiratory distress, wheezes Cardiovascular Exam: Present: regular rate, normal rhythm GI/Abdominal exam: Present: soft. Absent: distended, tenderness, guarding Extremities exam: Present: other (1.5 cm laceration on the dorsum of her hand there is some soft tissue swelling and erythema surrounding the laceration.) Neurological exam: Present: alert, oriented X3, CN II-XII intact. Absent: motor sensory deficit Psychiatric exam: Present: normal affect, normal mood Course Vital Signs 11/26/24 18:53 Temperature 99 F Pulse Rate 74 Respiratory 20 Rate Blood Pressure 184/83 O2 Sat by Pulse 95 Oximetry Medical Decision Making - Medical Decision Making Was pt. sent in by a medical professional or institution (, PA, [employer], urgent care, hospital, or long term...) When possible be specific @ -No Did you speak to anyone other than the patient for history (EMS, parent, family, police, friend...)? What history was obtained from this source @ -No Did you review nursing and triage notes (agree or disagree)? Why? @ -I reviewed and agree with nursing and triage notes Were old charts reviewed (outside hosp., previous admission, EMS record, old EKG, old radiological studies, urgent care reports/EKG's, long term records)? Report findings @ -No old charts were reviewed Differential Diagnosis cellulitis, tenosynovitis, pyogenic infection EKG interpreted by me (3pts min.). @ -As above X-rays interpreted by me (1pt min.). @ -None done CT interpreted by me (1pt min.). @ -None done U/S interpreted by me (1pt. min.). @ -None done What testing was considered but not performed or refused? (CT, X-rays, U/S, labs)? Why? @ -None What meds were considered but not given or refused? Why? @ -None Did you discuss the management of the patient with other professionals (professionals i.e. , PA, [employer], lab, RT, psych nurse, social science professor, law enforcement instructor, teacher, special technical operations officer, test case developer)? Give summary @ -No Was smoking cessation discussed for >3mins.? @ -No Was critical care preformed (if so, how long)? @ -No Were there social determinants of health that impacted care today? How? (Homelessness, low income, unemployed, alcoholism, drug addiction, transportation, low edu. Level, literacy, decrease access to med. care, skilled nursing, rehab)? @ -No Was there de-escalation of care discussed even if they declined (Discuss DNR or withdrawal of care, Hospice)? DNR status @ -No What co-morbidities impacted this encounter? (DM, HTN, Smoking, COPD, CAD, Cancer, CVA, ARF, Chemo, Hep., AIDS, mental health diagnosis, sleep apnea, morbid obesity)? @ -None Was patient admitted / discharged? Hospital course, mention meds given and route, prescriptions, significant lab abnormalities, going to OR and other pertinent info. @89-year-old female with pain and swelling adjacent to a scratch from her own cat which was earlier today. There is a 1.5 cm laceration. This will be a llowed to heal without suture repair given the risk of infection. Patient has surrounding erythema and some soft tissue swelling. I discussed the case with Dr. Ho who does agree with my plan for oral antibiotics and close follow-up with strict return parameters. Patient is informed to monitor over the next 24 to 48 hours and return if the erythema or swelling should worsen. She should return with any fever. Undiagnosed new problem with uncertain prognosis? @ -No Drug Therapy requiring intensive monitoring for toxicity (Heparin, Nitro, Insulin, Cardizem)? @ -No Were any procedures done? @ -No Diagnosis/symptom? @Cat scratch, cellulitis Acute, or Chronic, or Acute on Chronic? @ -Acute Uncomplicated (without systemic symptoms) or Complicated (systemic symptoms)? @ -Default Side effects of treatment? @ -No Exacerbation, Progression, or Severe Exacerbation? @ -No Poses a threat to life or bodily function? How? (Chest pain, [place], [place], pneumonia, PE, COPD, DKA, ARF, appy, cholecystitis, CVA, Diverticulitis, Homicidal, Suicidal, threat to staff... and all critical care pts) @ -Low risk at this time Disposition Clinical Impression: Cat scratch of hand, Cellulitis Disposition: HOME SELF-CARE Condition: Fair Instructions (If sedation given, give patient instructions): Cellulitis (ED), Laceration (ED) Prescriptions: Doxycycline [Vibramycin] 100 mg PO BID 14 Days #28 capsule Is patient prescribed a controlled substance at d/c from ED?: No Referrals: Antony Wolfe DO [Primary Care Provider] - 1-2 days Kennedy Ho MD [STAFF PHYSICIAN] - 1-2 days Time of Disposition: 19:47
[2024-11-26] MEDS: DOXYCYCLINE 100 MG TABLET PO ONE (19:54)
[2024-11-26 20:22] VITALS: BP 155/79; PULSE 79; TEMP 98.8
== END 2024-11-26 20:26 | disposition home or self-care (01) ==
LOC: EC 18:30
DX: L03.113 Cellulitis of right upper limb (principal); Z87.891 Personal history of nicotine dependence; Z88.0 Allergy status to penicillin; Z88.1 Allergy status to other antibiotic agents; Z88.2 Allergy status to sulfonamides; Z88.5 Allergy status to narcotic agent; Z91.030 Bee allergy status; Z88.8 Allergy status to other drugs, medicaments and biological substances; W55.03XA Scratched by cat, initial encounter
CPT/HCPCS: 12001; 99282